=== PATIENT | female | born 1955 | race Caucasian/White ===

== ENCOUNTER 2017-11-18 11:38 | Inpatient (IN) | payer BC ==
[~2017-11-18] VITALS: Ht 165.1 cm; Wt 57.2 kg
[~2017-11-18 11:38] MED LIST: ASCO-182 PO; ASCO500C9 PO; ASPI-1471 PO; CYAN50TA3 PO; DEX4 PO; FERR325T24 PO; FOLI-68 PO; KET10 PO; LORA-1456 SL; MULT-27 PO; NIRA100C PO; ONDA4TAB PO; ONDA8TAB94 PO; OSE75 PO; OXYC-865 PO; POTA20TA10 PO; POTA20TA94 PO; PROC10TA4 PO; PYRI100T57 PO; PYRI25TA18 PO; SCOT TD; VITA150T2 PO; [UNRECOGNIZED DRUG - CODE] PO
--- NOTE | 2017-11-18 11:48 | ER Report ---
History and Physical Time Seen By MD: 11:47 HPI/ROS CHIEF COMPLAINT: Nausea, vomiting HISTORY OF PRESENT ILLNESS: 62-year-old female patient presents to emergency room with complaint of nausea and vomiting. Patient states that she had a dose of chemotherapy on . Patient states that she has not been able to eat and keep anything down since Sunday night. Patient states she has had several episodes of vomiting. 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 Patient denies having any fevers, chills. Patient states she's not had a bowel movement in 48 hours. She denies having any pain but states she does have nausea. Patient received 4 mg of Zofran in the cancer center and she states that seemed to have helped. REVIEW OF SYSTEMS: Respiratory: No cough, no dyspnea. Cardiovascular: No chest pain, no palpitations. Gastrointestinal: As noted above Musculoskeletal: No back pain. Allergies: Coded Allergies: niraparib (Verified Adverse Reaction, Intermediate, sores on mouth, ) Home Meds Discontinued Reported Medications Niraparib Tosylate (Zejula) 100 Mg Capsule, 100 MG PO DAILY 09/04/17 Mu-Vits-Min Th/Lycopene/Lutein (CENTRUM SILVER TABLET) 1 Each Tablet, 1 EACH PO QDAY 08/29/17 Folic Acid (FOLIC ACID) 1 Mg Tablet, 1 MG PO QDAY, TAB 06/15/17 Cyanocobalamin (Vitamin B-12) (VITAMIN B-12) 50 Mcg Tablet, 50 MCG PO DAILY 04/07/16 Mv,Ca,Min/Iron Fum/Fa/Vit K (MULTI FOR HER TABLET) 1 Each Tablet, 1 EACH PO 04/17/13 Discontinued Scripts Potassium Chloride (POTASSIUM CHLORIDE) 20 Meq Tab.er.prt, 1 TAB PO BIDBS, #30 TAB 0 Refills Prov:ROXANA MONTANEZ MD 08/22/17 Niraparib Tosylate (Zejula) 100 Mg Capsule, 300 MG PO DAILY, #90 CAP Prov:HUGO MORROW APPLICATION SYSTEMS ADMINISTRATOR-BC, ONC 08/20/17 Past Medical/Surgical History Patient has a past medical history of SVT, bowel obstruction, hiatal hernia, ovarian cancer. Patient has surgical history of ventral hernia repair, abdominal surgery for ovarian cancer, hysterectomy, retinal reattachment, ileostomy and reversal. Reviewed Nurses Notes: Yes Hx Smoking: No Smoking Status: Never Smoker Exposure to Second Hand Smoke?: No Hx Alcohol Use: No Constitutional Vital Sign - Last 24 Hours 11/18/17 11/18/17 11/18/17 11/18/17 11:40 11:49 12:00 12:30 Temp 98.7 Pulse 115 Resp 14 B/P (MAP) 129/65 129/65 (86) 127/65 (85) 116/65 (82) Pulse Ox 87 O2 Delivery Room Air 11/18/17 11/18/17 11/18/17 11/18/17 13:30 14:00 14:30 15:33 B/P (MAP) 125/64 (84) 126/64 (84) 146/56 (86) 122/65 (84) 11/18/17 11/18/17 11/18/17 11/18/17 15:35 15:50 16:05 16:20 Pulse 106 114 121 116 Pulse Ox 96 95 91 93 11/18/17 11/18/17 11/18/17 11/18/17 16:25 16:26 16:30 16:35 Pulse 111 111 109 Pulse Ox 91 86 O2 Flow Rate 2.0 11/18/17 11/18/17 11/18/17 11/18/17 16:40 16:43 16:45 16:50 Pulse 107 101 99 B/P (MAP) 86/50 (62) 89/44 (59) 89/46 (60) Pulse Ox 88 88 11/18/17 11/18/17 11/18/17 11/18/17 16:55 16:59 17:00 17:05 Pulse 108 102 101 B/P (MAP) 93/47 (62) Pulse Ox 87 86 89 11/18/17 11/18/17 11/18/17 11/18/17 17:10 17:15 17:20 17:25 Pulse 102 105 99 101 B/P (MAP) 102/59 (73) Pulse Ox 83 83 89 89 11/18/17 17:28 B/P (MAP) 103/54 (70) Intake and Output 11/18/17 11/18/17 11/19/17 15:00 23:00 07:00 Intake Total 1000 ml 100 ml Output Total 500 ml Balance 1000 ml -400 ml Physical Exam General Appearance: The patient is alert, has no immediate need for airway protection and no current signs of toxicity. ENT: Tympanic membranes are pearly-marin, auditory canals are patent, mucous membranes are moist. Respiratory: Chest is non tender, lungs are clear to auscultation. Cardiac: regular rate and rhythm Gastrointestinal: Abdomen is moderately distended and non tender, no masses, bowel sounds normal. Musculoskeletal: Neck: Neck is supple and non tender. Extremities have full range of motion and are non tender. Skin: No rashes or lesions. DIFFERENTIAL DIAGNOSIS: After history and physical exam differential diagnosis was considered for small bowel obstruction, gastroenteritis, reaction to chemotherapy. Medical Decision Making Data Points Result Diagram: 11/18/17 1216 11/18/17 1216 Laboratory Hematology Test 11/18/17 12:16 11/18/17 15:00 Red Blood Count 3.08 M/uL (4.17-5.56) Mean Corpuscular Volume 100.2 fL (80.0-96.0) Mean Corpuscular Hemoglobin 33.4 pg (26.0-33.0) Mean Corpuscular Hemoglobin Concent 33.3 g/dL (32.0-36.0) Red Cell Distribution Width 22.4 % (11.5-14.5) Mean Platelet Volume 8.9 fL (7.2-11.1) Neutrophils (%) (Auto) 88.5 % (39.4-72.5) Lymphocytes (%) (Auto) 9.9 % (17.6-49.6) Monocytes (%) (Auto) 1.3 % (4.1-12.4) Eosinophils (%) (Auto) 0.2 % (0.4-6.7) Basophils (%) (Auto) 0.1 % (0.3-1.4) Nucleated RBC Relative Count (auto) 0.0 /100WBC Neutrophils # (Auto) 3.5 K/uL (2.0-7.4) Lymphocytes # (Auto) 0.4 K/uL (1.3-3.6) Monocytes # (Auto) 0.1 K/uL (0.3-1.0) Eosinophils # (Auto) 0.0 K/uL (0.0-0.5) Basophils # (Auto) 0.0 K/uL (0.0-0.1) Nucleated RBC Absolute Count (auto) 0.00 K/uL Peripheral Blood Smear Yes Y/N Sodium Level 142 mmol/L (137-145) Potassium Level 3.7 mmol/L (3.5-5.0) Chloride Level 105 mmol/L (98-107) Carbon Dioxide Level 29 mmol/L (22-31) Blood Urea Nitrogen 17 mg/dl (7-18) Creatinine 0.50 mg/dl (0.52-1.04) Glomerular Filtration Rate Calc > 60.0 Random Glucose 118 mg/dl (75-110) Calcium Level 8.5 mg/dl (8.4-10.2) Total Bilirubin 1.0 mg/dl (0.2-1.3) Aspartate Amino Transf (AST/SGOT) 24 U/L (0-35) Alanine Aminotransferase (ALT/SGPT) 36 U/L (0-56) Alkaline Phosphatase 101 U/L (0-126) Total Protein 6.7 gm/dl (6.3-8.2) Albumin 3.4 g/dl (3.5-5.0) Amylase Level < 30 U/L (0-110) Lipase 25 U/L (23-300) Urine Color Yellow Urine Clarity Clear Urine pH 8.0 pH (4.8-9.5) Urine Specific [place] 1.005 Urine Protein Negative mg/dL (NEGATIVE) Urine Glucose (UA) Negative mg/dL (NEGATIVE) Urine Ketones Trace mg/dL (NEGATIVE) Urine Blood Negative (NEGATIVE) Urine Nitrite Negative (NEGATIVE) Urine Bilirubin Negative (NEGATIVE) Urine Urobilinogen Negative mg/dL (0.2-1.9) Urine Leukocyte Esterase Negative (NEGATIVE) Urine RBC 3 /HPF (0-2/HPF) Urine WBC 2 /HPF (0-5/HPF) Urine Squamous Epithelial Cells Many /LPF (</=FEW) Urine Bacteria Negative /HPF (NONE-FEW) Urine Mucus None /HPF (NONE-FEW) Chemistry Test 11/18/17 12:16 11/18/17 15:00 White Blood Count 4.0 k/uL (4.5-11.0) Red Blood Count 3.08 M/uL (4.17-5.56) Hemoglobin 10.3 g/dL (12.0-16.0) Hematocrit 30.8 % (34.0-47.0) Mean Corpuscular Volume 100.2 fL (80.0-96.0) Mean Corpuscular Hemoglobin 33.4 pg (26.0-33.0) Mean Corpuscular Hemoglobin Concent 33.3 g/dL (32.0-36.0) Red Cell Distribution Width 22.4 % (11.5-14.5) Platelet Count 145 K/uL (150-450) Mean Platelet Volume 8.9 fL (7.2-11.1) Neutrophils (%) (Auto) 88.5 % (39.4-72.5) Lymphocytes (%) (Auto) 9.9 % (17.6-49.6) Monocytes (%) (Auto) 1.3 % (4.1-12.4) Eosinophils (%) (Auto) 0.2 % (0.4-6.7) Basophils (%) (Auto) 0.1 % (0.3-1.4) Nucleated RBC Relative Count (auto) 0.0 /100WBC Neutrophils # (Auto) 3.5 K/uL (2.0-7.4) Lymphocytes # (Auto) 0.4 K/uL (1.3-3.6) Monocytes # (Auto) 0.1 K/uL (0.3-1.0) Eosinophils # (Auto) 0.0 K/uL (0.0-0.5) Basophils # (Auto) 0.0 K/uL (0.0-0.1) Nucleated RBC Absolute Count (auto) 0.00 K/uL Peripheral Blood Smear Yes Y/N Glomerular Filtration Rate Calc > 60.0 Calcium Level 8.5 mg/dl (8.4-10.2) Total Bilirubin 1.0 mg/dl (0.2-1.3) Aspartate Amino Transf (AST/SGOT) 24 U/L (0-35) Alanine Aminotransferase (ALT/SGPT) 36 U/L (0-56) Alkaline Phosphatase 101 U/L (0-126) Total Protein 6.7 gm/dl (6.3-8.2) Albumin 3.4 g/dl (3.5-5.0) Amylase Level < 30 U/L (0-110) Lipase 25 U/L (23-300) Urine Color Yellow Urine Clarity Clear Urine pH 8.0 pH (4.8-9.5) Urine Specific [place] 1.005 Urine Protein Negative mg/dL (NEGATIVE) Urine Glucose (UA) Negative mg/dL (NEGATIVE) Urine Ketones Trace mg/dL (NEGATIVE) Urine Blood Negative (NEGATIVE) Urine Nitrite Negative (NEGATIVE) Urine Bilirubin Negative (NEGATIVE) Urine Urobilinogen Negative mg/dL (0.2-1.9) Urine Leukocyte Esterase Negative (NEGATIVE) Urine RBC 3 /HPF (0-2/HPF) Urine WBC 2 /HPF (0-5/HPF) Urine Squamous Epithelial Cells Many /LPF (</=FEW) Urine Bacteria Negative /HPF (NONE-FEW) Urine Mucus None /HPF (NONE-FEW) Urinalysis Test 11/18/17 15:00 Urine Color Yellow Urine Clarity Clear Urine pH 8.0 pH (4.8-9.5) Urine Specific [place] 1.005 Urine Protein Negative mg/dL (NEGATIVE) Urine Glucose (UA) Negative mg/dL (NEGATIVE) Urine Ketones Trace mg/dL (NEGATIVE) Urine Blood Negative (NEGATIVE) Urine Nitrite Negative (NEGATIVE) Urine Bilirubin Negative (NEGATIVE) Urine Urobilinogen Negative mg/dL (0.2-1.9) Urine Leukocyte Esterase Negative (NEGATIVE) Urine RBC 3 /HPF (0-2/HPF) Urine WBC 2 /HPF (0-5/HPF) Urine Squamous Epithelial Cells Many /LPF (</=FEW) Urine Bacteria Negative /HPF (NONE-FEW) Urine Mucus None /HPF (NONE-FEW) EKG/Imaging Imaging INDICATION: fluid noted in lung on abdomen CT. DATE: 11/18/2017 2:06 PM. TECHNIQUE: CHEST W/O CONTRAST. Noncontrast axial CT imaging was performed to the chest with sagittal and coronal reformats. One of the following dose optimization techniques was utilized in the performance of this exam: Automated exposure control; adjustment of the mA and/or kV according to the patient's size ; or use of an iterative reconstruction technique. Specific details can be referenced in the facility's radiology CT exam operational policy. COMPARISON: CT abdomen of the same day FINDINGS: There is a large left pleural effusion with collapse of the left lower lobe. The left upper lobe is also largely atelectatic, but there is some aeration anteriorly. The right lung is clear with exception of scar and/or atelectasis, which is mild. Heart size is normal. A right chest port terminates in the SVC. No acute osseous abnormality. IMPRESSION: Large left pleural effusion with collapse of the left lower lobe and partial collapse of the left upper lobe. Report Dictated By: Tanesha Price MD at 11/18/2017 2:06 PM Report E-Signed By: Tanesha Price MD at 11/18/2017 2:15 PM COMPUTED TOMOGRAPHY OF THE Abdomen and Pelvis with CONTRAST INDICATION: Nausea and vomiting. TECHNIQUE: Contiguous axial 3.[address] images were obtained through the abdomen and pelvis after the administration of 75 cc Isovue-370. Coronal and sagittal reformatted images were submitted. COMPARISON: CT of July 09, 2016. FINDINGS: Lung bases: There is a large left pleural effusion which is incompletely imaged. The left lower lobe is collapsed. This has increased in size from comparison. Liver and hepatic vasculature: The abdomen is blurred by motion. The liver is grossly unremarkable. Gallbladder and bile ducts: High attenuation material fills the gallbladder as on the comparison and is of calcific density. Spleen: Normal with small splenule anteriorly. Pancreas: Mild to moderate pancreatic atrophy. Adrenals: Normal Kidneys, ureters and bladder: No hydronephrosis or collecting system obstruction. Retroperitoneum and aorta: Scattered aortic atherosclerosis. No aneurysm. GI tract, mesentery and peritoneum: The terminal ileum is decompressed. Several small bowel loops in the midabdomen are dilated, and there are multiple air- fluid levels. Dilation measures up to 4.9 cm diameter. There is a normal volume of gas and stool within the right colon. The left colon is decompressed. There is a surgical anastomosis involving the colon in the right hemiabdomen. The stomach is partially fluid-filled, and the jejunum is dilated. Uterus and adnexa: Surgically absent uterus. There is a small to moderate volume of low to intermediate attenuation fluid in the cul-de-sac. There is also a small volume of fluid in the paracolic gutters, more on the right than left. Bones and soft tissues: No acute osseous abnormality. Multilevel degenerative findings in the lumbar spine. IMPRESSION: 1. Small bowel obstruction with dilation of the jejunum and multiple small bowel loops in the midabdomen which measure just under 5 cm maximal diameter. The terminal ileum is decompressed. 2. Large left pleural effusion is incompletely imaged, and the left lower lobe is collapsed. Pleural fluid has progressed since the comparison. 3. Additional chronic findings as above. One of the following dose optimization techniques was utilized in the performance of this exam: Automated exposure control; adjustment of the mA and/ or kV according to the patient's size; or use of an iterative reconstruction technique. Specific details can be referenced in the facility's radiology CT exam operational policy. Report Dictated By: Tanesha Price MD at 11/18/2017 1:48 PM Report E-Signed By: Tanesha Price MD at 11/18/2017 2:06 PM ED Course/Re-evaluation ED Course Patient was admitted to exam room, history of discordant pain. Differential diagnoses were considered. On examination patient has distended abdomen, mild tenderness, hypoactive bowel sounds. A CBC, CMP, urinalysis were obtained. I did get a call all the patient was in CT getting exam. The radiology equipment servicer stated that there was significant pleural effusion and I did order a CT scan of the chest. The CT of the abdomen showed a small bowel obstruction, the CT scan of chest showed a large left pleural effusion with complex of the left lung. I discussed the case with Dr. Montanez, general surgeon. He is not supervisor telephone information but the patient requested that he be notified. He states that he was watching the CT scan and understood. I then spoke with Dr. Bruno who was on-call. He did come in, evaluate the patient. He did place an NG tube and performed a thoracentesis in the emergency room. He was able to pull out 2.3 L. Patient tolerated procedure well, her blood pressure did drop after removing the fluid. We laid her back in bed, gave her more fluid. Patient was then taken over to the [facility] floor. Decision to Disposition Date: Nov 18, 2017 Decision to Disposition Time: 14:33 Depart Departure Latest Vital Signs Vital Signs Date Time Temp Pulse Resp B/P (MAP) Pulse Ox O2 Delivery O2 Flow Rate FiO2 11/18/17 17:28 103/54 (70) 11/18/17 17:25 101 89 11/18/17 16:26 2.0 11/18/17 11:40 98.7 14 Room Air Impression: Primary Impression: Small bowel obstruction Additional Impression: Pleural effusion, left Condition: Improved Disposition: Admitted from ER New Scripts Unable to Obtain Active Prescriptions or Reported Meds Problem Qualifiers KENZIE LEON Nov 18, 2017 11:48
[2017-11-18] MEDS ORDERED: NS(*) 0.9% 1000 ML BAG 1,000 ML IV ONE ×3 (12:02→16:45)
[2017-11-18] MEDS ORDERED: IOPAMIDOL 76% 75 ML INFUS BTL 75 ML ONE (12:16)
[2017-11-18] MEDS ORDERED: NS 0.9% 50 ML VIAL 50 ML ONE (12:16)
[2017-11-18] MEDS ORDERED: PROMETHAZINE 25 MG/ML 1 ML AMP IVP ONE (12:25)
[2017-11-18 12:38] LABS: PLATELET COUNT, AUTOMATED 145 K/uL (150-450)
--- NOTE | 2017-11-18 14:11 | RADIOLOGY IMAGING REPORT ---
[place] [facility] [place] : 1955 MR: [id number] V: [id number] EXAM DATE: ORDERING PHYSICIAN: KENZIE LEON TECHNOLOGIST: Location: [facility] [place] Patient: Carolina Hill : 1955 Visit/Account:[id number] Date of Sevice: 11/18/2017 COMPUTED TOMOGRAPHY OF THE Abdomen and Pelvis with CONTRAST INDICATION: Nausea and vomiting. TECHNIQUE: Contiguous axial 3.[address] images were obtained through the abdomen and pelvis after the administration of 75 cc Isovue-370. Coronal and sagittal reformatted images were submitted. COMPARISON: CT of July 09, 2016. FINDINGS: Lung bases: There is a large left pleural effusion which is incompletely imaged. The left lower lobe is collapsed. This has increased in size from comparison. Liver and hepatic vasculature: The abdomen is blurred by motion. The liver is grossly unremarkable. Gallbladder and bile ducts: High attenuation material fills the gallbladder as on the comparison and is of calcific density. Spleen: Normal with small splenule anteriorly. Pancreas: Mild to moderate pancreatic atrophy. Adrenals: Normal Kidneys, ureters and bladder: No hydronephrosis or collecting system obstruction. Retroperitoneum and aorta: Scattered aortic atherosclerosis. No aneurysm. GI tract, mesentery and peritoneum: The terminal ileum is decompressed. Several small bowel loops in the midabdomen are dilated, and there are multiple air-fluid levels. Dilation measures up to 4.9 cm d iameter. There is a normal volume of gas and stool within the right colon. The left colon is decompre ssed. There is a surgical anastomosis involving the colon in the right hemiabdomen. The stomach is pa rtially fluid-filled, and the jejunum is dilated. Uterus and adnexa: Surgically absent uterus. There is a small to moderate volume of low to intermedia te attenuation fluid in the cul-de-sac. There is also a small volume of fluid in the paracolic gutter s, more on the right than left. Bones and soft tissues: No acute osseous abnormality. Multilevel degenerative findings in the lumbar spine. IMPRESSION: 1. Small bowel obstruction with dilation of the jejunum and multiple small bowel loops in the midabdo men which measure just under 5 cm maximal diameter. The terminal ileum is decompressed. 2. Large left pleural effusion is incompletely imaged, and the left lower lobe is collapsed. Pleural fluid has progressed since the comparison. 3. Additional chronic findings as above. One of the following dose optimization techniques was utilized in the performance of this exam: Autom ated exposure control; adjustment of the mA and/or kV according to the patient's size; or use of an i terative reconstruction technique. Specific details can be referenced in the facility's radiology C T exam operational policy. Report Dictated By: Tanesha Price MD at 11/18/2017 1:48 PM Report E-Signed By: Tanesha Price MD at 11/18/2017 2:06 PM WSN:[id number]
--- NOTE | 2017-11-18 14:19 | RADIOLOGY IMAGING REPORT ---
FACILITY: [facility] - [place] PATIENT NAME: Carolina Hill : 1955 MR: [id number] V: [id number] EXAM DATE: ORDERING PHYSICIAN: KENZIE LEON TECHNOLOGIST: Location: [facility] - [place] Patient: Carolina Hill : 1955 Visit/Account:[id number] Date of Sevice: 11/18/2017 INDICATION: fluid noted in lung on abdomen CT. DATE: 11/18/2017 2:06 PM. TECHNIQUE: CHEST W/O CONTRAST. Noncontrast axial CT imaging was performed to the chest with sagittal and coronal reformats. One of the following dose optimization techniques was utilized in the performa nce of this exam: Automated exposure control; adjustment of the mA and/or kV according to the patient 's size; or use of an iterative reconstruction technique. Specific details can be referenced in the facility's radiology CT exam operational policy. COMPARISON: CT abdomen of the same day FINDINGS: There is a large left pleural effusion with collapse of the left lower lobe. The left upper lobe is also largely atelectatic, but there is some aeration anteriorly. The right lung is clear wit h exception of scar and/or atelectasis, which is mild. Heart size is normal. A right chest port termi nates in the SVC. No acute osseous abnormality. IMPRESSION: Large left pleural effusion with collapse of the left lower lobe and partial collapse of the left upp er lobe. Report Dictated By: Tanesha Price MD at 11/18/2017 2:06 PM Report E-Signed By: Tanesha Price MD at 11/18/2017 2:15 PM WSN:[id number]
[2017-11-18] MEDS ORDERED: ONDANSETRON 4 MG/2 ML VIAL IVP ONE (14:50)
[2017-11-18] MEDS ORDERED: ACETAMINOPHEN(*)1000 MG/100 ML 100 ML IVPB ONE (14:50)
[2017-11-18] MEDS ORDERED: LORazepam 2 MG/ML VIAL IVP ONE (15:10)
--- NOTE | 2017-11-18 16:49 | Procedure Note ---
Thoracentesis Procedure Note Reason for Thoracentesis: Pleural Effusion Consent Signed: Yes Thoracentesis Location: Left Lung U/S Guided Thoracentesis: No Blood Loss: None Complications: None Anesthesia Used: 1% Lidocaine CC's of Anesthesia: 10 Amount of Fluid: 2350 Fluid Characteristics: Serous Post Procedure Xray Ordered: Yes Lab Analysis Ordered: Yes RONNIE CLARK MD Nov 18, 2017 16:49
--- NOTE | 2017-11-18 17:02 | Gen Surgery History & Physical ---
History of Present Illness Chief Complaint Nausea and Vomiting, abdominal pain History of Present Illness Ms. Hill is a 62yo female with ovarian carcinoma currently undergoing chemotherapy. She had a transverse colonic bowel obstruction earlier this year and had a colon resection in July. She has since restarted her chemotherapy regimen and just completed her 3rd of 5 cycles. She had nausea and vomiting starting last night that led to her visiting the ED today. She has also had some respiratory wheezing and cough that has persisted over the past 1-2 weeks. Her evaluation in the ED included a CT Chest/Abd/Pelvis which demonstrated a large left pleural effusion in addition to a distal small bowel obstruction. I was contacted to assist with the evaluation and treatment. I spoke with Dr Montanez regarding her PMH. History Home Meds Active Scripts Potassium Chloride (POTASSIUM CHLORIDE) 20 Meq Tab.er.prt, 1 TAB PO BIDBS, #30 TAB 0 Refills Prov:ROXANA MONTANEZ MD 08/22/17 Reported Medications Mu-Vits-Min Th/Lycopene/Lutein (CENTRUM SILVER TABLET) 1 Each Tablet, 1 EACH PO QDAY 08/29/17 Folic Acid (FOLIC ACID) 1 Mg Tablet, 1 MG PO QDAY, TAB 06/15/17 Cyanocobalamin (Vitamin B-12) (VITAMIN B-12) 50 Mcg Tablet, 50 MCG PO DAILY 04/07/16 Mv,Ca,Min/Iron Fum/Fa/Vit K (MULTI FOR HER TABLET) 1 Each Tablet, 1 EACH PO 04/17/13 Discontinued Reported Medications Niraparib Tosylate (Zejula) 100 Mg Capsule, 100 MG PO DAILY 09/04/17 Discontinued Scripts Niraparib Tosylate (Zejula) 100 Mg Capsule, 300 MG PO DAILY, #90 CAP Prov:HUGO MORROW LUMBER MARKER-BC, ONC 08/20/17 Allergies: Coded Allergies: niraparib (Verified Adverse Reaction, Intermediate, sores on mouth, ) Patient History: FH: diabetes mellitus MOTHER, , Age:63 Review of Systems All Systems Reviewed/Normal: Yes, Except as Noted Constitutional: No Fever Neurological: No Syncope Respiratory: Shortness of Breath, Cough, Wheezing Gastrointestinal: Nausea, Vomiting, No Diarrhea Exam General Appearance: Alert, Awake, Other (discomfort predominantly due to abdominal pain, N/V) Neuro: No Gross deficits Eyes: PERRLA ENT: Normal Neck: No Masses Cardiovascular: Normal Rhythm & Peripheral Pulses Respiratory: Other (no breath sounds on the left) GI: Other (distended, non-tender) Extremities: Soft and Non Tender Psych: Alert & Oriented X3, Appropriate Mood & Affect Medical Decision Making Data Points Result Diagram: 11/18/17 1216 11/18/17 1216 Assessment and Plan Problems: (1) Ovarian cancer Status: Chronic (2) Small bowel obstruction Status: Acute Assessment & Plan: 11/18/17: The obstruction appears to be in the distal small bowel. I placed an 18F NGT in the ED after providing 1mg of ativan sedation. There was some difficulty in getting to the posterior pharynx but the procedure overall went well. A x-ray will be obtained to help confirm placement though there was good return of gastric fluid. The tube was positioned at 50cm at the nare. I will reevaluate her in the am for decision of a SBFT. (3) Pleural effusion, left Status: Acute Assessment & Plan: She has a pleural effusion on the left that completely fills the chest. This was apparently seen previously per the patient but not at this volume. She has not had it drained in the past. I recommend drainage due to the size of the collection via thoracentesis. She may very well need another thoracentesis or pleural catheter at some point but this will help get her to a better position after dealing with the acute issues. Time Spent: > 30 min Venous Thromboembolism VTE Risk Physician Assess for VTE Risk: Yes Patient's VTE Risk: High VTE Diagnostic Test 2 Days Prior to Admit: No Antithrombotics Is Pt On Any Antithrombotics?: No RONNIE CLARK MD Nov 18, 2017 17:02
[2017-11-18] MEDS ORDERED: NALOXONE HCL 0.4 MG/ML VIAL IVP PRN (17:05)
[2017-11-18] MEDS ORDERED: ONDANSETRON 4 MG/2 ML VIAL IVP PRN (17:05)
[2017-11-18] MEDS ORDERED: MORPHINE 2 MG/ML SYR IVP PRN (17:05)
--- NOTE | 2017-11-18 17:24 | RADIOLOGY IMAGING REPORT ---
FACILITY: [facility] - [place] PATIENT NAME: Carolina Hill : 1955 MR: [id number] V: [id number] EXAM DATE: ORDERING PHYSICIAN: KENZIE LEON TECHNOLOGIST: Location: [facility] Patient: Carolina Hill : 1955 Visit/Account:[id number] Date of Sevice: 11/18/2017 EXAMINATION: Portable AP Chest HISTORY: NG tube placement. COMPARISON: CT chest performed earlier today.. FINDINGS: Prior large left pleural effusion is no longer present, presumably due to interval thoracentesis. Mil d streaky and linear opacities in the lower left lung may represent residual atelectasis. No pneumoth orax. The right lung remains clear. No right-sided pleural effusion. Normal cardiomediastinal silhouette, with normal heart size and pulmonary vascularity. New enteric tube present. Tip overlies the mid stomach in the left upper abdomen. Right central venou s port, with tip overlying the mid SVC. No acute osseous findings. IMPRESSION: 1. NG tube tip in the stomach. 2. Prior large left pleural effusion is no longer present, presumably due to interval thoracentesis. 3. Mild left basilar opacity likely represents atelectasis. No pneumothorax. Report Dictated By: Aly Rice MD at 11/18/2017 5:17 PM Report E-Signed By: Aly Rice MD at 11/18/2017 5:20 PM WSN:[id number]
[2017-11-18 17:54] VITALS: BP 100/40
[2017-11-18 19:55] VITALS: BP 110/60
[2017-11-18] MEDS: KCL/D1/2NS 20 MEQ 1000 ML 1,000 ML IV PRN (20:51)
[2017-11-18] MEDS: FAMOTIDINE(*) 20MG/50ML PREMIX 50 ML IVPB SCH (20:51)
[2017-11-19 00:55] VITALS: BP 109/58
[2017-11-19 03:13] VITALS: BP 112/62
[2017-11-19] MEDS: KCL/D1/2NS 20 MEQ 1000 ML 1,000 ML IV PRN (05:32)
--- NOTE | 2017-11-19 05:38 | RADIOLOGY IMAGING REPORT ---
[place] [facility] [place] Hill : 1955 MR: [id number] V: [id number] EXAM DATE: ORDERING PHYSICIAN: RONNIE CLARK TECHNOLOGIST: Location: [facility] [place] Patient: Carolina Hill : 1955 Visit/Account:[id number] Date of Sevice: 11/19/2017 CHEST PA AND LAT History: Follow-up thoracentesis Comparison 11/18/2012. FINDINGS: New small left apical pneumothorax. Developing infiltrate in the left lower lung. NG tube terminates in the stomach. Heart size within normal limits. IMPRESSION: 1. Small left apical pneumothorax. 2. Developing infiltrate in the left lower lung. Results were called to RONNIE CLARK at 0530 hours. . Report Dictated By: Georges Farrar MD at 11/19/2017 5:30 AM Report E-Signed By: Georges Farrar MD at 11/19/2017 5:35 AM WSN:[id number]
[2017-11-19 07:15] LABS: PLATELET COUNT, AUTOMATED 103 K/uL (150-450)
[2017-11-19 07:24] VITALS: BP 104/48
[2017-11-19] MEDS: ENOXAPARIN 40 MG/0.4ML SYR SC SCH (08:55)
[2017-11-19] MEDS: FAMOTIDINE(*) 20MG/50ML PREMIX 50 ML IVPB SCH ×2 (08:55→20:28)
[2017-11-19] MEDS ORDERED: BENZOCAINE/MENTHOL 1 EACH LOZG PO PRN (08:55)
--- NOTE | 2017-11-19 10:47 | General Surgery Progress Note ---
Subjective Progress Notes Subjective She is feeling much better. Passing flatus. No nausea. No pain. Physical Exam Vital Signs Date Time Temp Pulse Resp B/P (MAP) Pulse Ox O2 Delivery O2 Flow Rate FiO2 11/19/17 07:24 98.4 14 104/48 (66) 95 Nasal Cannula 1.0 11/19/17 03:13 92 General Appearance: Alert, Awake, No Acute Distress Respiratory: No Respiratory Distress GI: Soft and Non-Tender Psych: Alert & Oriented X3, Appropriate Mood & Affect Result Diagram: 11/19/17 0644 11/19/17 0644 Assessment and Plan Problems: (1) Ovarian cancer Status: Chronic (2) Small bowel obstruction Status: Acute Assessment & Plan: 11/18/17: The obstruction appears to be in the distal small bowel. I placed an 18F NGT in the ED after providing 1mg of ativan sedation. There was some difficulty in getting to the posterior pharynx but the procedure overall went well. A x-ray will be obtained to help confirm placement though there was good return of gastric fluid. The tube was positioned at 50cm at the nare. I will reevaluate her in the am for decision of a SBFT. 11/19/17: She is passing gas and her KUB shows clear progress with less distention and air in the colon. However, she does still have dilated loops of small bowel. I will thus keep her NGT on suction at this point until she has more definitive resolution. (3) Pleural effusion, left Status: Acute Assessment & Plan: She has a pleural effusion on the left that completely fills the chest. This was apparently seen previously per the patient but not at this volume. She has not had it drained in the past. I recommend drainage due to the size of the collection via thoracentesis. She may very well need another thoracentesis or pleural catheter at some point but this will help get her to a better position after dealing with the acute issues. 11/19/17: The effusion remains resolved. There is a small pneumothorax which is likely due to the slow withdrawal of the catheter. I will recheck her film at 1130 for a 6hr follow-up. There is also note of an infiltrate but I lean towards this representing atelectasis over a pneumonia at this time. Her WBC is 1.1 which is likely her post-chemo baseline. Her value yesterday was probably due to demargination. I have placed her on protective precautions and recommended IS. Time Spent: < 30 min Exam Sepsis Risk: No Definite Risk RONNIE CLARK MD Nov 19, 2017 10:47
--- NOTE | 2017-11-19 11:39 | RADIOLOGY IMAGING REPORT ---
FACILITY: [facility] - [place] PATIENT NAME: Carolina Hill : 1955 MR: [id number] V: [id number] EXAM DATE: ORDERING PHYSICIAN: RONNIE CLARK TECHNOLOGIST: Location: [facility] - [place] Patient: Carolina Hill : 1955 Visit/Account:[id number] Date of Sevice: 11/19/2017 INDICATION: Small bowel obstruction EXAM DATE: 11/19/2017 8:37 AM COMPARISON: CT abdomen and pelvis yesterday. FINDINGS: AP supine radiograph of the abdomen. Esophagogastric tube terminates in the body of the stomach. Redemonstration multiple loops of dilated small bowel. No pneumatosis, pneumoperitoneum or portal ve nous gas. No evidence of large volume ascites or mass. Surgical clips over the right lower quadrant. Large lamellated gallstone. No acute osseous abnormality. IMPRESSION: Persistently dilated loops of small bowel consistent with obstruction as seen yesterday. Report Dictated By: Darío San MD at 11/19/2017 11:33 AM Report E-Signed By: Daíro San MD at 11/19/2017 11:35 AM WSN:[id number]
[2017-11-19 11:40] VITALS: BP 101/42
--- NOTE | 2017-11-19 11:46 | General Surgery Progress Note ---
Physical Exam Vital Signs Date Time Temp Pulse Resp B/P (MAP) Pulse Ox O2 Delivery O2 Flow Rate FiO2 11/19/17 11:40 98.7 85 18 101/42 (61) 98 Nasal Cannula 1.0 Result Diagram: 11/19/17 0644 11/19/17 0644 Assessment and Plan Problems: (1) Ovarian cancer Status: Chronic (2) Small bowel obstruction Status: Acute Assessment & Plan: 11/18/17: The obstruction appears to be in the distal small bowel. I placed an 18F NGT in the ED after providing 1mg of ativan sedation. There was some difficulty in getting to the posterior pharynx but the procedure overall went well. A x-ray will be obtained to help confirm placement though there was good return of gastric fluid. The tube was positioned at 50cm at the nare. I will reevaluate her in the am for decision of a SBFT. 11/19/17: She is passing gas and her KUB shows clear progress with less distention and air in the colon. However, she does still have dilated loops of small bowel. I will thus keep her NGT on suction at this point until she has more definitive resolution. (3) Pleural effusion, left Status: Acute Assessment & Plan: She has a pleural effusion on the left that completely fills the chest. This was apparently seen previously per the patient but not at this volume. She has not had it drained in the past. I recommend drainage due to the size of the collection via thoracentesis. She may very well need another thoracentesis or pleural catheter at some point but this will help get her to a better position after dealing with the acute issues. 11/19/17: The effusion remains resolved. There is a small pneumothorax which is likely due to the slow withdrawal of the catheter. I will recheck her film at 1130 for a 6hr follow-up. There is also note of an infiltrate but I lean towards this representing atelectasis over a pneumonia at this time. Her WBC is 1.1 which is likely her post-chemo baseline. Her value yesterday was probably due to demargination. I have placed her on protective precautions and recommended IS. 11/19/17: 1145am - Repeat CXR shows no progression of pneumothorax. Effusion is reaccumulating. Will decrease IVF to 100ml/hr with good UOP. Time Spent: < 30 min Exam Sepsis Risk: No Definite Risk RONNIE CLARK MD Nov 19, 2017 11:46
--- NOTE | 2017-11-19 11:54 | RADIOLOGY IMAGING REPORT ---
FACILITY: [facility] PATIENT NAME: Carolina Hill : 1955 MR: [id number] V: [id number] EXAM DATE: ORDERING PHYSICIAN: RONNIE CLARK TECHNOLOGIST: Location: [facility] Patient: Carolina Hill : 1955 Visit/Account:[id number] Date of Sevice: 11/19/2017 SINGLE AP RADIOGRAPH OF THE CHEST 11/19/2017 11:30 AM. INDICATION: follow-up pneumothorax from early am film COMPARISON: Same-day radiograph at 5:13 AM. FINDINGS: Endotracheal tube and right subclavian central venous catheter with port remain in place. Persistent but decreased small left apical pneumothorax. Left mid and lower lung opacification or not signific antly changed. Suspected small left pleural effusion. IMPRESSION: Persistent but decreased small left apical pneumothorax, otherwise unchanged. Report Dictated By: Darío San MD at 11/19/2017 11:47 AM Report E-Signed By: Darío San MD at 11/19/2017 11:50 AM WSN:[id number]
[2017-11-19 14:54] VITALS: Ht 165.1 cm; Wt 57.2 kg
--- NOTE | 2017-11-19 15:05 | Medical Nutrition Therapy ---
Nutrition Anthropometrics Height (Inches): 65.00 Height (Calculated Centimeters: 165.360076 Weight (Pounds): 126 Weight (Calculated Kilograms): 57.379 BMI Calculated: 20.97 Francisco Nutrition Score: Probably Inadequate Francisco Nutrition Risk Score: 19 Dietary Referral Nutrition Risk Factors: Nutrition Risk Comment: Physical Findings Physical Appearance: WNR Skin Appearance Skin Appearance: Edema Edema Location Modifier: Both Edema Location: Lower Extremity Type of Edema: Degree of Edema: 1+ Gastrointestinal Symptoms GI Symtoms: Nausea Tube Present: NG Bowel Sounds: Recent Bowel Pattern: No Bowel Movement Stool Characteristics: Nutrition/Food History No Significant Nutr. HX Nutritional Diagnosis Nutritional Risk Acuity 1: GI Obstruction Nutritional Risk Acuity 3: Nausea, Cancer Past Medical History: 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, Colostomy, transverse colonic bowel obstruction, colon resection Nutritional Acuity: 1-High Nutrition Diagnosis: Altered GI Function Nutrition Etiology: Physiological Causes Nutrition Problem/Etiology/Sym: Altered Gastrointestinal (GI) Function related to alteration in gastrointestinal tract function secondary to SBO AEB positive SBO diagnosis with CT of the abdomen and abdominal pain, nausea prior to admit. Energy Requirement: 1800 ([place] Jeor: Actual BW X 1.6) Protein Requirement: 60 (Actual BW Kg X 1.0) Fluid Requirement: 1800 Diet Type: NPO (Nothing by Mouth) Nutrition Intervention: Incr diet as tolerated Nutrition Monitoring & Eval Nutrition Goals: Eat 75-100% Meal RD Patient Assessment Time: [address] Assessment Type: RD Assessment Patient Nutrition Acuity: 1-High Follow Up Date: Nov 21, 2017 Nutritional Comment: Pt admitted for SBO. Alb 3.4, Low Ca+, Creat. WNR wt with BMI of 21.0. Pt currently receiving chemo for ovarian carcinoma. Currently NPO r/t SBO. Monitor diet progression, labs, etc. TOMAS MONTANA Nov 19, 2017 15:05
[2017-11-19 15:55] VITALS: BP 108/54
[2017-11-19 19:32] VITALS: BP 107/51
[2017-11-20 02:04] VITALS: BP 95/47
[2017-11-20] MEDS: KCL/D1/2NS 20 MEQ 1000 ML 1,000 ML IV PRN ×2 (02:10→14:11)
[2017-11-20 06:27] LABS: PLATELET COUNT, AUTOMATED 86 K/uL (150-450)
--- NOTE | 2017-11-20 07:58 | RADIOLOGY IMAGING REPORT ---
FACILITY: [facility] PATIENT NAME: Carolina Hill : 1955 MR: [id number] V: [id number] EXAM DATE: ORDERING PHYSICIAN: RONNIE CLARK TECHNOLOGIST: Location: [facility] Patient: Carolina Hill : 1955 Visit/Account:[id number] Date of Sevice: 11/20/2017 CHEST PA AND LAT Additional pertinent History: Follow-up of small bowel obstruction and pneumothorax/effusion COMPARISON STUDIES: 11/19/2017 FINDINGS: Support lines and catheters: NG tube within the stomach. Right chest [id number]-[id number] catheter. Lungs and Pleura: Persistent small apical pneumothorax in the left upper lung. Persistent slightly i mproved opacity obscuring the left hemidiaphragm and left heart border extending to the left infrahil ar region. Heart and vasculature: Negative. Amita and Mediastinum: Negative. Bones and Chest wall: Negative. Upper Abdomen: Negative. IMPRESSION: 1. No interval change in the appearance the chest when compared to the previous study. Persistent sma ll left apical pneumothorax. Persistent volume loss/consolidative change in the left lower lung with slight minimal improvement in aeration when compared to the previous study Report Dictated By: Shaquille Acosta MD at 11/20/2017 7:52 AM Report E-Signed By: Shaquille Acosta MD at 11/20/2017 7:55 AM WSN:[id number]
--- NOTE | 2017-11-20 08:00 | RADIOLOGY IMAGING REPORT ---
FACILITY: [facility] [place] PATIENT NAME: Carolina Hill : 1955 MR: [id number] V: [id number] EXAM DATE: ORDERING PHYSICIAN: RONNIE CLARK TECHNOLOGIST: Location: [facility] Patient: Carolina Hill : 1955 Visit/Account:[id number] Date of Sevice: 11/20/2017 KUB SINGLE VIEW ABDOMEN HISTORY: follow-up small bowel obstruction KUB Comparison made to a previous KUB from 11/19/2017 NG tube within the stomach. Persistent dilated loops of small bowel in the central and left upper abd omen. No significant overall interval change in the appearance when compared to previous study. Large calcified gallstone. Surgical clips overlying the right upper sacrum. IMPRESSION: 1. Persistent unchanged appearance to the dilated loops of small bowel compatible with small bowel ob struction in the central and left upper abdomen. Report Dictated By: Shaquille Acosta MD at 11/20/2017 7:55 AM Report E-Signed By: Shaquille Acosta MD at 11/20/2017 7:56 AM WSN:[id number]
--- NOTE | 2017-11-20 08:25 | General Surgery Progress Note ---
Subjective Progress Notes Subjective Feeling better today. Passing "lots of" flatus. No abdominal pain. No N/V. Appetite is coming back. NG tube came out overnight. Physical Exam Vital Signs Date Time Temp Pulse Resp B/P (MAP) Pulse Ox O2 Delivery O2 Flow Rate FiO2 11/20/17 02:04 97.6 87 16 95/47 (63) 98 Nasal Cannula 0.5 General Appearance: Alert, Awake, No Acute Distress, Afebrile GI: Soft and Non-Tender Extremities: Warm, Perfused Result Diagram: 11/20/17 0536 11/20/17 0536 Assessment and Plan Problems: (1) Small bowel obstruction Status: Acute Assessment & Plan: 11/18/17: The obstruction appears to be in the distal small bowel. I placed an 18F NGT in the ED after providing 1mg of ativan sedation. There was some difficulty in getting to the posterior pharynx but the procedure overall went well. A x-ray will be obtained to help confirm placement though there was good return of gastric fluid. The tube was positioned at 50cm at the nare. I will reevaluate her in the am for decision of a SBFT. 11/19/17: She is passing gas and her KUB shows clear progress with less distention and air in the colon. However, she does still have dilated loops of small bowel. I will thus keep her NGT on suction at this point until she has more definitive resolution. 11/20/17: Improving. Passing increasing amounts of flatus. KUB improved slightly but still with dilated loops of small bowel. Will try clear diet today but will limit intake to <30mL/4hours. Will recheck x-ray tomorrow morning. If improvement is slow or stalled, will get gastrograffin SBFT tomorrow. (2) Pleural effusion, left Status: Acute Assessment & Plan: She has a pleural effusion on the left that completely fills the chest. This was apparently seen previously per the patient but not at this volume. She has not had it drained in the past. I recommend drainage due to the size of the collection via thoracentesis. She may very well need another thoracentesis or pleural catheter at some point but this will help get her to a better position after dealing with the acute issues. 11/19/17: The effusion remains resolved. There is a small pneumothorax which is likely due to the slow withdrawal of the catheter. I will recheck her film at 1130 for a 6hr follow-up. There is also note of an infiltrate but I lean towards this representing atelectasis over a pneumonia at this time. Her WBC is 1.1 which is likely her post-chemo baseline. Her value yesterday was probably due to demargination. I have placed her on protective precautions and recommended IS. 11/19/17: 1145am - Repeat CXR shows no progression of pneumothorax. Effusion is reaccumulating. Will decrease IVF to 100ml/hr with good UOP. 11/20/17: Slow reaccumulation of left effusion, likely due to ovarian cancer with mets to left pleura, cytology is pending. Will follow this. If repeated thoracenteses are required then may need to discuss indwelling pleural catheter. (3) Ovarian cancer Status: Chronic Condition Stable. Time Spent: < 30 min Exam Sepsis Risk: No Definite Risk Problem Qualifiers (1) Ovarian cancer: Laterality: unspecified laterality Qualified Codes: C56.9 - Malignant neoplasm of unspecified ovary ROXANA MONTANEZ MD Nov 20, 2017 08:25
[2017-11-20 08:27] VITALS: BP 92/44
[2017-11-20] MEDS: FAMOTIDINE(*) 20MG/50ML PREMIX 50 ML IVPB SCH ×2 (08:46→20:18)
[2017-11-20] MEDS: ENOXAPARIN 40 MG/0.4ML SYR SC SCH (08:46)
[2017-11-20] MEDS ORDERED: NIRA100C PO (09:14)
[2017-11-20] MEDS ORDERED: FOLI-68 PO (09:14)
[2017-11-20] MEDS ORDERED: MULT-27 PO (09:14)
[2017-11-20] MEDS ORDERED: [UNRECOGNIZED DRUG - CODE] PO (09:14)
[2017-11-20] MEDS ORDERED: CYAN500L6 PO (09:14)
[2017-11-20] MEDS ORDERED: POTA20TA94 PO (09:14)
[2017-11-20 11:16] VITALS: BP 93/52
[2017-11-20 15:29] VITALS: BP 97/51
--- NOTE | 2017-11-20 16:17 | Medical Nutrition Therapy ---
Nutrition Anthropometrics Height (Inches): 65.00 Height (Calculated Centimeters: 165.477855 Weight (Pounds): 126 Weight (Calculated Kilograms): 57.379 BMI Calculated: 20.97 Francisco Nutrition Score: Very Poor Francisco Nutrition Risk Score: 18 Dietary Referral Nutrition Risk Factors: Nutrition Risk Comment: Physical Findings Physical Appearance: WNR Skin Appearance Skin Appearance: Edema Edema Location Modifier: Both Edema Location: Lower Extremity Type of Edema: Degree of Edema: 1+ Gastrointestinal Symptoms GI Symtoms: Nausea Tube Present: NG Bowel Sounds: Recent Bowel Pattern: No Bowel Movement Stool Characteristics: Nutritional Diagnosis Nutritional Risk Acuity 1: GI Obstruction Nutritional Risk Acuity 3: Nausea, Cancer Past Medical History: 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, Colostomy, transverse colonic bowel obstruction, colon resection Nutritional Acuity: 1-High Nutrition Diagnosis: Altered GI Function Nutrition Etiology: Physiological Causes Nutrition Problem/Etiology/Sym: Altered Gastrointestinal (GI) Function related to alteration in gastrointestinal tract function secondary to SBO AEB positive SBO diagnosis with CT of the abdomen and abdominal pain, nausea prior to admit. Energy Requirement: 1800 ([place] Jeor: Actual BW X 1.6) Protein Requirement: 60 (Actual BW Kg X 1.0) Fluid Requirement: 1800 Diet Type: Clear Liquids Nutrition Intervention: Incr diet as tolerated Nutrition Monitoring & Eval Nutrition Goals: Eat 75-100% Meal RD Patient Assessment Time: [address] Assessment Type: RD Re-Assessment Patient Nutrition Acuity: 1-High Follow Up Date: Nov 22, 2017 Nutritional Comment: Pt admitted for SBO. Alb 3.4, Low Ca+, Creat. WNR wt with BMI of 21.0. Pt currently receiving chemo for ovarian carcinoma. Currently NPO r/t SBO. Monitor diet progression, labs, etc. 1/2 Per MD note, pt is passing flatus and appetite is coming back. Upgraded to clear liquids but limited to <30 ml every 4 hrs. H/H low and alb 3.4. Will continue to monitor and encourage intake as diet progresses. PROSPER HERNANDEZ Nov 20, 2017 12:50
[2017-11-20 18:45] VITALS: BP 100/57
[2017-11-20 22:34] VITALS: BP 104/46
[2017-11-21] MEDS: KCL/D1/2NS 20 MEQ 1000 ML 1,000 ML IV PRN ×2 (01:47→13:38)
[2017-11-21 04:24] VITALS: BP 112/57
[2017-11-21 06:06] LABS: PLATELET COUNT, AUTOMATED 73 K/uL (150-450)
--- NOTE | 2017-11-21 07:29 | General Surgery Progress Note ---
Subjective Progress Notes Subjective Feeling good this morning. Passing flatus and she's had a couple of BMs. No N/ V, no bloating. Physical Exam Vital Signs Date Time Temp Pulse Resp B/P (MAP) Pulse Ox O2 Delivery O2 Flow Rate FiO2 11/21/17 04:24 98.0 86 16 112/57 (75) 90 Room Air 11/20/17 02:04 0.5 General Appearance: Alert, Awake, No Acute Distress, Afebrile GI: Soft and Non-Tender Extremities: Warm, Perfused Result Diagram: 11/21/17 0538 11/21/17 0538 Assessment and Plan Problems: (1) Small bowel obstruction Status: Acute Assessment & Plan: 11/18/17: The obstruction appears to be in the distal small bowel. I placed an 18F NGT in the ED after providing 1mg of ativan sedation. There was some difficulty in getting to the posterior pharynx but the procedure overall went well. A x-ray will be obtained to help confirm placement though there was good return of gastric fluid. The tube was positioned at 50cm at the nare. I will reevaluate her in the am for decision of a SBFT. 11/19/17: She is passing gas and her KUB shows clear progress with less distention and air in the colon. However, she does still have dilated loops of small bowel. I will thus keep her NGT on suction at this point until she has more definitive resolution. 11/20/17: Improving. Passing increasing amounts of flatus. KUB improved slightly but still with dilated loops of small bowel. Will try clear diet today but will limit intake to <30mL/4hours. Will recheck x-ray tomorrow morning. If improvement is slow or stalled, will get gastrograffin SBFT tomorrow. 11/21/17: Continued improvement, now passing flatus and BMs. KUB still with dilated loops of small bowel but patient clinically is resolving. Will try clear diet without volume restrictions today. (2) Pleural effusion, left Status: Acute Assessment & Plan: She has a pleural effusion on the left that completely fills the chest. This was apparently seen previously per the patient but not at this volume. She has not had it drained in the past. I recommend drainage due to the size of the collection via thoracentesis. She may very well need another thoracentesis or pleural catheter at some point but this will help get her to a better position after dealing with the acute issues. 11/19/17: The effusion remains resolved. There is a small pneumothorax which is likely due to the slow withdrawal of the catheter. I will recheck her film at 1130 for a 6hr follow-up. There is also note of an infiltrate but I lean towards this representing atelectasis over a pneumonia at this time. Her WBC is 1.1 which is likely her post-chemo baseline. Her value yesterday was probably due to demargination. I have placed her on protective precautions and recommended IS. 11/19/17: 1145am - Repeat CXR shows no progression of pneumothorax. Effusion is reaccumulating. Will decrease IVF to 100ml/hr with good UOP. 11/20/17: Slow reaccumulation of left effusion, likely due to ovarian cancer with mets to left pleura, cytology is pending. Will follow this. If repeated thoracenteses are required then may need to discuss indwelling pleural catheter. 11/21/17: Slow reaccumulation, relatively stable from yesterday. (3) Ovarian cancer Status: Chronic Condition Stable. Time Spent: < 30 min Exam Sepsis Risk: No Definite Risk Problem Qualifiers (1) Ovarian cancer: Laterality: unspecified laterality Qualified Codes: C56.9 - Malignant neoplasm of unspecified ovary ROXANA MONTANEZ MD Nov 21, 2017 07:28
--- NOTE | 2017-11-21 08:17 | RADIOLOGY IMAGING REPORT ---
FACILITY: [facility] [place] PATIENT NAME: Carolina Hill : 1955 MR: [id number] V: [id number] EXAM DATE: ORDERING PHYSICIAN: ROXANA MONTANEZ TECHNOLOGIST: Location: [facility] Patient: Carolina Hill : 1955 Visit/Account:[id number] Date of Sevice: 11/21/2017 KUB SINGLE VIEW ABDOMEN HISTORY: SBO No comparisons FINDINGS: There are dilated loops of small bowel up to 4 cm in the left mid abdomen. Air-filled colon of a nond ilated nature. No abdominal mass lesions. Laminated gallstone in the right upper quadrant. This measu res over 3 cm in size. Bony structures unremarkable. Surgical clips in the inferior medial right lower abdomen adjacent to the upper right sacrum. IMPRESSION: 1. Study suggesting developing small bowel obstruction. 2. Cholelithiasis. Report Dictated By: Shaquille Acosta MD at 11/21/2017 8:11 AM Report E-Signed By: Shaquille Acosta MD at 11/21/2017 8:15 AM WSN:[id number]
--- NOTE | 2017-11-21 08:32 | RADIOLOGY IMAGING REPORT ---
FACILITY: [facility] - [place] PATIENT NAME: Carolina Hill : 1955 MR: [id number] V: [id number] EXAM DATE: ORDERING PHYSICIAN: ROXANA MONTANEZ TECHNOLOGIST: Location: [facility] Patient: Carolina Hill : 1955 Visit/Account:[id number] Date of Sevice: 11/21/2017 CHEST SINGLE AP INDICATION: Left pleural effusion COMPARISON: 12-06 FINDINGS: Heart size within normal limits. There is a persistent consolidation with pleural effusion noted within left lower lobe and lingula. Small right pleural effusion is slightly increased in size. Small left apical pneumothorax is stable . Nasogastric tube is been removed. Large calcified stone within the gallbladder is again noted. IMPRESSION: 1. Persistent left lower lobe consolidation and probable lingular consolidation with underlying smal l pleural effusion as well as the small left apical pneumothorax are unchanged from prior study. The small right pleural effusion has slightly increased in size. Report Dictated By: Urban White at 11/21/2017 8:12 AM Report E-Signed By: Urban White at 11/21/2017 8:29 AM WSN:[email or web address]
[2017-11-21 09:13] VITALS: BP 109/45
[2017-11-21] MEDS: FAMOTIDINE(*) 20MG/50ML PREMIX 50 ML IVPB SCH ×2 (09:15→20:32)
[2017-11-21] MEDS: ENOXAPARIN 40 MG/0.4ML SYR SC SCH (09:15)
[2017-11-21 11:24] VITALS: BP 103/59
[2017-11-21 15:21] VITALS: BP 103/53
[2017-11-21 19:53] VITALS: BP 132/64
[2017-11-21 22:36] VITALS: BP 108/54
[2017-11-22 02:18] VITALS: BP 111/64
[2017-11-22] MEDS: KCL/D1/2NS 20 MEQ 1000 ML 1,000 ML IV PRN (02:20)
--- NOTE | 2017-11-22 05:27 | General Surgery Progress Note ---
Subjective Progress Notes Subjective No complaints this morning. No abdominal pain. Continues to pass "lots" of flatus and she had another BM overnight. Physical Exam Vital Signs Date Time Temp Pulse Resp B/P (MAP) Pulse Ox O2 Delivery O2 Flow Rate FiO2 11/22/17 02:18 97.5 96 18 111/64 (80) 91 Room Air 11/20/17 02:04 0.5 General Appearance: Alert, Awake, No Acute Distress, Afebrile GI: Soft and Non-Tender Extremities: Warm, Perfused Result Diagram: 11/21/17 0538 11/21/17 0538 Assessment and Plan Problems: (1) Small bowel obstruction Status: Acute Assessment & Plan: 11/18/17: The obstruction appears to be in the distal small bowel. I placed an 18F NGT in the ED after providing 1mg of ativan sedation. There was some difficulty in getting to the posterior pharynx but the procedure overall went well. A x-ray will be obtained to help confirm placement though there was good return of gastric fluid. The tube was positioned at 50cm at the nare. I will reevaluate her in the am for decision of a SBFT. 11/19/17: She is passing gas and her KUB shows clear progress with less distention and air in the colon. However, she does still have dilated loops of small bowel. I will thus keep her NGT on suction at this point until she has more definitive resolution. 11/20/17: Improving. Passing increasing amounts of flatus. KUB improved slightly but still with dilated loops of small bowel. Will try clear diet today but will limit intake to <30mL/4hours. Will recheck x-ray tomorrow morning. If improvement is slow or stalled, will get gastrograffin SBFT tomorrow. 11/21/17: Continued improvement, now passing flatus and BMs. KUB still with dilated loops of small bowel but patient clinically is resolving. Will try clear diet without volume restrictions today. 11/22/17: Clinically resolving SBO. Will start regular diet today. If she does well with this then will plan on d/c to home tomorrow. (2) Pleural effusion, left Status: Acute Assessment & Plan: She has a pleural effusion on the left that completely fills the chest. This was apparently seen previously per the patient but not at this volume. She has not had it drained in the past. I recommend drainage due to the size of the collection via thoracentesis. She may very well need another thoracentesis or pleural catheter at some point but this will help get her to a better position after dealing with the acute issues. 11/19/17: The effusion remains resolved. There is a small pneumothorax which is likely due to the slow withdrawal of the catheter. I will recheck her film at 1130 for a 6hr follow-up. There is also note of an infiltrate but I lean towards this representing atelectasis over a pneumonia at this time. Her WBC is 1.1 which is likely her post-chemo baseline. Her value yesterday was probably due to demargination. I have placed her on protective precautions and recommended IS. 11/19/17: 1145am - Repeat CXR shows no progression of pneumothorax. Effusion is reaccumulating. Will decrease IVF to 100ml/hr with good UOP. 11/20/17: Slow reaccumulation of left effusion, likely due to ovarian cancer with mets to left pleura, cytology is pending. Will follow this. If repeated thoracenteses are required then may need to discuss indwelling pleural catheter. 11/21/17: Slow reaccumulation, relatively stable from yesterday. 11/22/17: Will recheck CXR next week, sooner if she redevelops respiratory symptoms. (3) Ovarian cancer Status: Chronic Condition Stable. Time Spent: < 30 min Exam Sepsis Risk: No Definite Risk Problem Qualifiers (1) Ovarian cancer: Laterality: unspecified laterality Qualified Codes: C56.9 - Malignant neoplasm of unspecified ovary ROXANA MONTANEZ MD Nov 22, 2017 05:27
[2017-11-22] MEDS ORDERED: HEPARIN FLSH (PORT) 500 UN/5ML IVP PRN (06:05)
[2017-11-22 06:23] LABS: PLATELET COUNT, AUTOMATED 68 K/uL (150-450)
[2017-11-22 08:14] VITALS: BP 116/59
[2017-11-22] MEDS: ENOXAPARIN 40 MG/0.4ML SYR SC SCH (08:17)
[2017-11-22] MEDS: FAMOTIDINE 20 MG TAB PO SCH ×2 (08:17→20:27)
[2017-11-22 11:48] VITALS: BP 103/51
[2017-11-22 15:16] VITALS: BP 105/55
--- NOTE | 2017-11-22 16:54 | Medical Nutrition Therapy ---
Nutrition Anthropometrics Height (Inches): 65.00 Height (Calculated Centimeters: 165.181412 Weight (Pounds): 126 Weight (Calculated Kilograms): 57.379 BMI Calculated: 20.97 Francisco Nutrition Score: Adequate Francisco Nutrition Risk Score: 20 Dietary Referral Nutrition Risk Factors: Nutrition Risk Comment: Physical Findings Physical Appearance: WNR Skin Appearance Skin Appearance: Edema Edema Location Modifier: Both Edema Location: Lower Extremity Type of Edema: Degree of Edema: 1+ Gastrointestinal Symptoms GI Symtoms: Nausea Tube Present: NG Bowel Sounds: Recent Bowel Pattern: No Bowel Movement Stool Characteristics: Nutritional Diagnosis Nutritional Risk Acuity 1: GI Obstruction Nutritional Risk Acuity 3: Nausea, Cancer Past Medical History: 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, Colostomy, transverse colonic bowel obstruction, colon resection Nutritional Acuity: 1-High Nutrition Diagnosis: Altered GI Function Nutrition Etiology: Physiological Causes Nutrition Problem/Etiology/Sym: Altered Gastrointestinal (GI) Function related to alteration in gastrointestinal tract function secondary to SBO AEB positive SBO diagnosis with CT of the abdomen and abdominal pain, nausea prior to admit. Energy Requirement: 1800 ([place]-St Jeor: Actual BW X 1.6) Protein Requirement: 60 (Actual BW Kg X 1.0) Fluid Requirement: 1800 Diet Type: Clear Liquids Nutrition Intervention: Incr diet as tolerated Nutrition Monitoring & Eval Nutrition Goals: Eat 75-100% Meal Nutrition Follow-Up: Fair Intake RD Patient Assessment Time: [address] Assessment Type: RD Re-Assessment Patient Nutrition Acuity: 1-High Follow Up Date: Nov 23, 2017 Nutritional Comment: Pt admitted for SBO. Alb 3.4, Low Ca+, Creat. WNR wt with BMI of 21.0. Pt currently receiving chemo for ovarian carcinoma. Currently NPO r/t SBO. Monitor diet progression, labs, etc. 1/2 Per MD note, pt is passing flatus and appetite is coming back. Upgraded to clear liquids but limited to <30 ml every 4 hrs. H/H low and alb 3.4. Will continue to monitor and encourage intake as diet progresses. 1/4 Per MD note, pt is passing flatus and now BM's. Upgraded to diet as tolerated with 50% intake at breakfast. H/H cont low. BUN/Cr low and Na 135. MD note states possible discharge tomorrow if she continues to improve. Will continue to monitor and encourage intake. YINA ABIG Nov 22, 2017 12:31
[2017-11-22 19:07] VITALS: BP 110/63
[2017-11-23 05:42] VITALS: BP 114/51
--- NOTE | 2017-11-23 07:21 | Short(Outpt) Discharge Summary ---
Discharge Summary Reason for Hosp/Final Diag: (1) Small bowel obstruction Status: Acute Hospital Course & Plan: 11/18/17: The obstruction appears to be in the distal small bowel. I placed an 18F NGT in the ED after providing 1mg of ativan sedation. There was some difficulty in getting to the posterior pharynx but the procedure overall went well. A x-ray will be obtained to help confirm placement though there was good return of gastric fluid. The tube was positioned at 50cm at the nare. I will reevaluate her in the am for decision of a SBFT. 11/19/17: She is passing gas and her KUB shows clear progress with less distention and air in the colon. However, she does still have dilated loops of small bowel. I will thus keep her NGT on suction at this point until she has more definitive resolution. 11/20/17: Improving. Passing increasing amounts of flatus. KUB improved slightly but still with dilated loops of small bowel. Will try clear diet today but will limit intake to <30mL/4hours. Will recheck x-ray tomorrow morning. If improvement is slow or stalled, will get gastrograffin SBFT tomorrow. 11/21/17: Continued improvement, now passing flatus and BMs. KUB still with dilated loops of small bowel but patient clinically is resolving. Will try clear diet without volume restrictions today. 11/22/17: Clinically resolving SBO. Will start regular diet today. If she does well with this then will plan on d/c to home tomorrow. 11/23/17: Doing well. Tolerating a regular diet. Passing flatus and BMs without problems. Breathing without problems. Will d/c to home today and I will see her back in my office next week and will recheck a CXR before that appointment. (2) Pleural effusion, left Status: Acute Hospital Course & Plan: She has a pleural effusion on the left that completely fills the chest. This was apparently seen previously per the patient but not at this volume. She has not had it drained in the past. I recommend drainage due to the size of the collection via thoracentesis. She may very well need another thoracentesis or pleural catheter at some point but this will help get her to a better position after dealing with the acute issues. 11/19/17: The effusion remains resolved. There is a small pneumothorax which is likely due to the slow withdrawal of the catheter. I will recheck her film at 1130 for a 6hr follow-up. There is also note of an infiltrate but I lean towards this representing atelectasis over a pneumonia at this time. Her WBC is 1.1 which is likely her post-chemo baseline. Her value yesterday was probably due to demargination. I have placed her on protective precautions and recommended IS. 11/19/17: 1145am - Repeat CXR shows no progression of pneumothorax. Effusion is reaccumulating. Will decrease IVF to 100ml/hr with good UOP. 11/20/17: Slow reaccumulation of left effusion, likely due to ovarian cancer with mets to left pleura, cytology is pending. Will follow this. If repeated thoracenteses are required then may need to discuss indwelling pleural catheter. 11/21/17: Slow reaccumulation, relatively stable from yesterday. 11/22/17: Will recheck CXR next week, sooner if she redevelops respiratory symptoms. (3) Ovarian cancer Status: Chronic Departure Discharge to: Home, Self Care Discharge Instructions Home Meds Reported Medications Mv,Ca,Min/Iron Fum/Fa/Vit K (MULTI FOR HER TABLET) 1 Each Tablet, 1 EACH PO DAILY 11/20/17 Cyanocobalamin (Vitamin B-12) (B-12) 500 Mcg Tab.rapdis, 50 MCG PO DAILY 11/20/17 Folic Acid (FOLIC ACID) 1 Mg Tablet, 1 MG PO QDAY, TAB 11/20/17 Mu-Vits-Min Th/Lycopene/Lutein (CENTRUM SILVER TABLET) 1 Each Tablet, 1 EACH PO DAILY 11/20/17 Potassium Chloride (POTASSIUM CHLORIDE) 20 Meq Tab.er.prt, 20 MEQ PO BIDBS 11/20/17 Discontinued Reported Medications Niraparib Tosylate (Zejula) 100 Mg Capsule, 300 MG PO DAILY 11/20/17 Niraparib Tosylate (Zejula) 100 Mg Capsule, 100 MG PO DAILY 09/04/17 Mu-Vits-Min Th/Lycopene/Lutein (CENTRUM SILVER TABLET) 1 Each Tablet, 1 EACH PO QDAY 08/29/17 Folic Acid (FOLIC ACID) 1 Mg Tablet, 1 MG PO QDAY, TAB 7/28/17 Cyanocobalamin (Vitamin B-12) (VITAMIN B-12) 50 Mcg Tablet, 50 MCG PO DAILY 04/07/16 Mv,Ca,Min/Iron Fum/Fa/Vit K (MULTI FOR HER TABLET) 1 Each Tablet, 1 EACH PO 04/17/13 Discontinued Scripts Potassium Chloride (POTASSIUM CHLORIDE) 20 Meq Tab.er.prt, 1 TAB PO BIDBS, #30 TAB 0 Refills Prov:ROXANA MONTANEZ MD 08/22/17 Niraparib Tosylate (Zejula) 100 Mg Capsule, 300 MG PO DAILY, #90 CAP Prov:HUGO MORROW HEEL MOLDER-BC, ONC 08/20/17 Follow up Referrals: General Surgery - 11/30/17 @ Surgery, General with Roxana Montanez Md You have a follow up appointment scheduled with Dr. Montanez on 11/30/17, at 12: 00pm. Please get a chest x-ray in radiology before your appointment. Diet: Regular Activity: As Tolerated Problem Qualifiers (1) Ovarian cancer: Laterality: unspecified laterality Qualified Codes: C56.9 - Malignant neoplasm of unspecified ovary ROXANA MONTANEZ MD Nov 23, 2017 07:21
[2017-11-23] MEDS: FAMOTIDINE 20 MG TAB PO SCH (07:53)
[2017-11-23] MEDS: ENOXAPARIN 40 MG/0.4ML SYR SC SCH (07:53)
[2017-11-23 08:01] VITALS: BP 100/42
[2017-11-23 11:23] VITALS: BP 109/60
--- NOTE | 2017-11-23 16:52 | Medical Nutrition Therapy ---
YINA BAIG 11/23/17 1249: Nutrition Anthropometrics Height (Inches): 65.00 Height (Calculated Centimeters: 165.543524 Weight (Pounds): 126 Weight (Calculated Kilograms): 57.379 BMI Calculated: 20.97 Francisco Nutrition Score: Adequate Francisco Nutrition Risk Score: 17 Dietary Referral Nutrition Risk Factors: Nutrition Risk Comment: Physical Findings Physical Appearance: WNR Skin Appearance Skin Appearance: Edema Edema Location Modifier: Both Edema Location: Lower Extremity Type of Edema: Degree of Edema: 1+ Gastrointestinal Symptoms GI Symtoms: Nausea Tube Present: NG Bowel Sounds: Recent Bowel Pattern: No Bowel Movement Stool Characteristics: Nutritional Diagnosis Nutritional Risk Acuity 1: GI Obstruction Nutritional Risk Acuity 3: Nausea, Cancer Past Medical History: 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, Colostomy, transverse colonic bowel obstruction, colon resection Nutritional Acuity: 1-High Nutrition Diagnosis: Altered GI Function Nutrition Etiology: Physiological Causes Nutrition Problem/Etiology/Sym: Altered Gastrointestinal (GI) Function related to alteration in gastrointestinal tract function secondary to SBO AEB positive SBO diagnosis with CT of the abdomen and abdominal pain, nausea prior to admit. Energy Requirement: 1800 ([place]-St Jeor: Actual BW X 1.6) Protein Requirement: 60 (Actual BW Kg X 1.0) Fluid Requirement: 1800 Diet Type: Diet as Tolerated REBEKAH/REG Nutrition Intervention: Cont diet as ordered, Encourage intake Nutrition Monitoring & Eval Nutrition Goals: Eat 75-100% Meal Nutrition Follow-Up: Good Intake RD Patient Assessment Time: [address] Assessment Type: RD Re-Assessment Patient Nutrition Acuity: 1-High Follow Up Date: Nov 26, 2017 Nutritional Comment: Pt admitted for SBO. Alb 3.4, Low Ca+, Creat. WNR wt with BMI of 21.0. Pt currently receiving chemo for ovarian carcinoma. Currently NPO r/t SBO. Monitor diet progression, labs, etc. 1/2 Per MD note, pt is passing flatus and appetite is coming back. Upgraded to clear liquids but limited to <30 ml every 4 hrs. H/H low and alb 3.4. Will continue to monitor and encourage intake as diet progresses. 1/4 Per MD note, pt is passing flatus and now BM's. Upgraded to diet as tolerated with 50% intake at breakfast. H/H cont low. BUN/Cr low and Na 135. MD note states possible discharge tomorrow if she continues to improve. Will continue to monitor and encourage intake. 1/5 Pt tolerating REBEKAH and most likely discharging today, per MD. Passing flatus and BM's without problems. Pt averaging 81% intake of small to regular portions. Notable labs include low H/H, Na 135, BUN <2, and Cr 0.5. Will continue to monitor intake and labs. PROSPER HERNANDEZ 11/23/17 1652: Nutrition Monitoring & Eval Nutritional Comment: Reviewed and approve general intern assessment. YINA BAIG Nov 23, 2017 12:49 PROSPER HERNANDEZ Nov 23, 2017 16:52
== END 2017-11-23 12:45 | disposition home or self-care (01) | DRG 389 ==
LOC: ER 11:42 → MED 17:28
PROVIDERS: ADMIT Surgery; ATTEND Surgery
PROC: 0W9B3ZX Drainage of Left Pleural Cavity, Percutaneous Approach, Diagnostic (ICD-10-PCS; principal; 2017-11-18)
DX: K56.600 Partial intestinal obstruction, unspecified as to cause (principal); J93.9 Pneumothorax, unspecified; J98.11 Atelectasis; C56.9 Malignant neoplasm of unspecified ovary; Z88.8 Allergy status to other drugs, medicaments and biological substances; Z90.710 Acquired absence of both cervix and uterus; Z92.21 Personal history of antineoplastic chemotherapy; Z85.068 Personal history of other malignant neoplasm of small intestine
CPT/HCPCS: 36415; 71010; 71045; 71046; 71250; 74018; 74177; 81001; 82040; 82150; 82247; 82310; 82374; 82435; 82565; 82945; 82947; 83615; 83690; 83986; 84075; 84132; 84155; 84157; 84295; 84450; 84460; 84520; 85025; 86304; 87071; 88104; 89050; 96361; 96365; 96375; 99285; A7048; J0131; J1642; J1650; J2060; J2405; J2550; J3480; J3490; J7030; J7050; Q9967

== ENCOUNTER 2017-11-27 15:52 | Inpatient (IN) | payer BC ==
[~2017-11-27] VITALS: Ht 167.6 cm; Wt 54.9 kg
[~2017-11-27 15:52] MED LIST changes: +CYAN500L6 PO
[2017-11-27 16:21] VITALS: BP 111/54
[2017-11-27] MEDS ORDERED: NS(*) 0.9% 1000 ML BAG 1,000 ML IV PRN (17:03)
[2017-11-27] MEDS ORDERED: PROMETHAZINE 25 MG/ML 1 ML AMP IVP PRN ×2 (17:05→17:15)
[2017-11-27] MEDS ORDERED: FLUSH 10 ML SYR IVP PRN (17:05)
[2017-11-27] MEDS ORDERED: HYDROmorphone PCA 6 MG/30 ML IV PRN (17:05)
[2017-11-27] MEDS ORDERED: ONDANSETRON 4 MG/2 ML VIAL IVP PRN (17:05)
[2017-11-27] MEDS ORDERED: NALOXONE HCL 0.4 MG/ML VIAL IVP PRN (17:05)
--- NOTE | 2017-11-27 18:25 | Gen Surgery History & Physical ---
History of Present Illness Chief Complaint Abdominal pain, nausea, vomiting History of Present Illness 62-year-old female, recently discharged after an admission for a small bowel obstruction, presents to the cancer center with worsening abdominal discomfort with nausea and vomiting. She has stage IV ovarian cancer and has undergone several abdominal operations including hysterectomy and debulking and several months ago had a transverse colonic obstruction treated with initially a blowhole transverse colostomy proximal to the obstruction due to her being on avastin and then a subsequent exploratory laparotomy with transverse colectomy and reanastomosis as well as colostomy reversal. She healed well from that operation and had restarted her chemotherapy when she developed abdominal bloating, pain, nausea, and vomiting. She was managed conservatively with NG tube decompression and bowel rest and seemed to recover from this and was discharged from the hospital 4 days ago and was doing well until yesterday when she experienced abdominal discomfort with nausea and vomiting which persisted throughout the night prompting them to contact the cancer center. The cancer center contacted me and I agreed to admit the patient for further evaluation and treatment. The patient reports that since several hours ago she has been passing flatus. Her last bowel movement was yesterday. She is in no pain. No further nausea or vomiting. History Problems: (1) Ovarian cancer Status: Chronic (2) Metastatic adenocarcinoma to uterus Status: Chronic (3) S/P colectomy Status: Chronic Home Meds Reported Medications Cyanocobalamin (Vitamin B-12) (B-12) 500 Mcg Tab.rapdis, 50 MCG PO DAILY 11/20/17 Mu-Vits-Min Th/Lycopene/Lutein (CENTRUM SILVER TABLET) 1 Each Tablet, 1 EACH PO DAILY 11/20/17 Discontinued Reported Medications Mv,Ca,Min/Iron Fum/Fa/Vit K (MULTI FOR HER TABLET) 1 Each Tablet, 1 EACH PO DAILY 11/20/17 Folic Acid (FOLIC ACID) 1 Mg Tablet, 1 MG PO QDAY, TAB 11/20/17 Potassium Chloride (POTASSIUM CHLORIDE) 20 Meq Tab.er.prt, 20 MEQ PO BIDBS 11/20/17 Niraparib Tosylate (Zejula) 100 Mg Capsule, 300 MG PO DAILY 11/20/17 Allergies: Coded Allergies: niraparib (Verified Adverse Reaction, Intermediate, sores on mouth, ) Patient History: FH: diabetes mellitus MOTHER, , Age:62 Review of Systems All Systems Reviewed/Normal: Yes, Except as Noted Gastrointestinal: Nausea, Vomiting, Abdominal Pain Exam General Appearance: Alert, Awake, No Acute Distress, Afebrile Neuro: No Gross deficits Eyes: PERRLA GI: Abd Soft and Non-Tender Extremities: Warm, Perfused Assessment and Plan Problems: (1) Small bowel obstruction Status: Acute Assessment & Plan: 11/27/17: She seems to be doing pretty good at the moment. Her KUB is consistent with a bowel obstruction but does not really look much worse then her last KUB last week. We'll continue bowel rest. She is not nauseated or vomiting at the moment so we'll hold off on an NG tube. We'll repeat a KUB in the morning and will likely get a small bowel follow-through with water soluble contrast tomorrow. We'll again attempt conservative management but further management based on the studies to be completed tomorrow. We will have her on IV fluids with potassium in them and will use Lovenox for DVT prophylaxis and PPI for GI prophylaxis. She seems agreeable with this plan. (2) Pleural effusion, left Status: Acute Assessment & Plan: This seems to be better then even last week after having thoracentesis performed by Dr. Bruno. It does not seem to be reaccumulating at this time. Condition Stable Time Spent: < 30 min Venous Thromboembolism VTE Risk Physician Assess for VTE Risk: Yes Patient's VTE Risk: High VTE Diagnostic Test 2 Days Prior to Admit: No Antithrombotics Is Pt On Any Antithrombotics?: Yes ROXANA MONTANEZ MD Nov 27, 2017 18:25
[2017-11-27 19:06] VITALS: BP 113/49
[2017-11-27] MEDS: KCL/D1/2NS 20 MEQ 1000 ML 1,000 ML IV SCH (19:37)
[2017-11-27 23:40] VITALS: BP 99/54
[2017-11-28 03:19] VITALS: BP 104/47
[2017-11-28] MEDS: KCL/D1/2NS 20 MEQ 1000 ML 1,000 ML IV SCH ×2 (03:23→13:00)
[2017-11-28 05:19] LABS: PLATELET COUNT, AUTOMATED 206 K/uL (150-450)
--- NOTE | 2017-11-28 06:35 | RADIOLOGY IMAGING REPORT ---
FACILITY: [facility] PATIENT NAME: Carolina Hill : 1955 MR: [id number] V: [id number] EXAM DATE: ORDERING PHYSICIAN: ROXANA MONTANEZ TECHNOLOGIST: Location: [facility] [place] Patient: Carolina Hill : 1955 Visit/Account:[id number] Date of Sevice: 11/28/2017 KUB SINGLE VIEW ABDOMEN COMPARISONS: November 27, 2017 ADDITIONAL PERTINENT HISTORY: Small bowel obstruction. FINDINGS: Lung bases: Negative. Supine evidence of free air: None. Bowel gas pattern: Continued dilated loops of small bowel in the midabdomen somewhat improved since p revious exam. Surrounding soft tissues and solid organs: Surgical clips in the lower abdomen. Osseous structures: Mild scoliotic curvature convex to the right centered at L3. IMPRESSION: 1. Improving but persistent underlying small bowel obstruction. Report Dictated By: Dennis Esquivel MD at 11/28/2017 6:28 AM Report E-Signed By: Dennis Esquivel MD at 11/28/2017 6:30 AM WSN:[id number]
[2017-11-28 07:09] VITALS: BP 92/54
--- NOTE | 2017-11-28 07:14 | General Surgery Progress Note ---
Subjective Progress Notes Subjective No complaints. No pain. No N/V. Passing flatus. Physical Exam Vital Signs Date Time Temp Pulse Resp B/P (MAP) Pulse Ox O2 Delivery O2 Flow Rate FiO2 11/28/17 07:09 98.0 79 18 92/54 (67) 95 Room Air General Appearance: Alert, Awake, No Acute Distress, Afebrile GI: Soft and Non-Tender Extremities: Warm, Perfused Result Diagram: 11/28/17 0500 11/28/17 0500 Assessment and Plan Problems: (1) Small bowel obstruction Status: Acute Assessment & Plan: 11/27/17: She seems to be doing pretty good at the moment. Her KUB is consistent with a bowel obstruction but does not really look much worse then her last KUB last week. We'll continue bowel rest. She is not nauseated or vomiting at the moment so we'll hold off on an NG tube. We'll repeat a KUB in the morning and will likely get a small bowel follow-through with water soluble contrast tomorrow. We'll again attempt conservative management but further management based on the studies to be completed tomorrow. We will have her on IV fluids with potassium in them and will use Lovenox for DVT prophylaxis and PPI for GI prophylaxis. She seems agreeable with this plan. 11/28/17: Doing well. KUB improved but still with some dilated loops of small intestines. Will get SBFT with water-soluble contrast today. (2) Pleural effusion, left Status: Acute Assessment & Plan: This seems to be better then even last week after having thoracentesis performed by Dr. Bruno. It does not seem to be reaccumulating at this time. Condition STable. Time Spent: < 30 min Exam Sepsis Risk: No Definite Risk ROXANA MONTANEZ MD Nov 28, 2017 07:14
[2017-11-28 09:09] VITALS: Ht 167.6 cm; Wt 54.9 kg
[2017-11-28] MEDS: ENOXAPARIN 40 MG/0.4ML SYR SC SCH (09:12)
[2017-11-28] MEDS: PANTOPRAZOLE SOD 40 MG IV VIAL IVP SCH (09:12)
[2017-11-28] MEDS ORDERED: DIATRIZOATE MEGL/DIATRIZOA SOD 120 ML SOLN PO ONE (11:00)
[2017-11-28 11:32] VITALS: BP 100/46
--- NOTE | 2017-11-28 14:10 | RADIOLOGY IMAGING REPORT ---
FACILITY: [facility] PATIENT NAME: Carolina Hill : 1955 MR: [id number] V: [id number] EXAM DATE: ORDERING PHYSICIAN: ROXANA MONTANEZ TECHNOLOGIST: Location: [facility] Patient: Carolina Hill : 1955 Visit/Account:[id number] Date of Sevice: 11/28/2017 Exam type: CHEST SINGLE AP History: SB series, confirm NG placement Comparison: December 07, 2017. Findings: Some placement of an NG/OG tube with the distal tip projecting left upper quadrant abdomen. This is likely within the gastric body. Right-sided implanted port again seen with distal tip projecting ove r the superior vena cava. Small pleural effusion and small amount of streaky consolidation left lung base remains unchanged. Cardiac silhouette is normal in size. IMPRESSION: 1. Tip of the NG tube projects over the left upper quadrant of abdomen presumably within the gastric body Small left pleural effusion and small amount left basilar airspace consolidation remains unchanged Report Dictated By: Katie Alvarado MD at 11/28/2017 1:41 PM Report E-Signed By: Katie Alvarado MD at 11/28/2017 2:06 PM [email or web address]
[2017-11-28 15:57] VITALS: BP 108/61
--- NOTE | 2017-11-28 16:25 | RADIOLOGY IMAGING REPORT ---
FACILITY: [facility] PATIENT NAME: Carolina Hill : 1955 MR: [id number] V: [id number] EXAM DATE: ORDERING PHYSICIAN: ROXANA MONTANEZ TECHNOLOGIST: Location: [facility] Patient: Carolina Hill : 1955 Visit/Account:[id number] Date of Sevice: 11/28/2017 Exam type: SMALL BOWEL SERIES History: SBO; WATER SOLUBLE CONTRAST ONLY Comparison: KUB performed earlier in the day. Findings: Patient received Gastrografin suspension through her NG tube. The immediate image postcontrast admin istration demonstrated moderate gaseous distention of several loops of small bowel left-sided abdomen measuring up to 4.6 cm in diameter. The visualized proximal jejunal loops did not appear dilated. The Gastrografin suspension was followed throughout the small bowel to the right-sided the colon. Th e Gastrografin reached the right-sided colon at one hour. The moderately dilated small bowel loops a nd left-sided abdomen appeared to be at least partially decompressed as the Gastrografin passed throu gh. A definite transitional point is not seen. IMPRESSION: 1. There was transient dilatation of small bowel loops although the Gastrografin did pass to the rig ht-sided colon within one hour. These changes may be the reflection of an ileus. Clinical correlati on needed Report Dictated By: Katie Alvarado MD at 11/28/2017 4:18 PM Report E-Signed By: Katie Alvarado MD at 11/28/2017 4:20 PM WSN:[email or web address]
[2017-11-28 19:19] VITALS: BP 92/46
[2017-11-29 01:29] VITALS: BP 115/54
[2017-11-29] MEDS: KCL/D1/2NS 20 MEQ 1000 ML 1,000 ML IV SCH ×2 (01:30→17:16)
[2017-11-29 05:58] LABS: PLATELET COUNT, AUTOMATED 227 K/uL (150-450)
--- NOTE | 2017-11-29 06:10 | RADIOLOGY IMAGING REPORT ---
FACILITY: [facility] PATIENT NAME: Carolina Hill : 1955 MR: [id number] V: [id number] EXAM DATE: ORDERING PHYSICIAN: ROXANA MONTANEZ TECHNOLOGIST: Location: [facility] Patient: Carolina Hill : 1955 Visit/Account:[id number] Date of Sevice: 11/29/2017 KUB SINGLE VIEW ABDOMEN COMPARISONS: Views of the abdomen dated November 28, 2017 ADDITIONAL PERTINENT HISTORY: Small bowel obstruction FINDINGS: Lung bases: Not imaged Supine evidence of free air: None. Bowel gas pattern: Contrast material within the colon. There has been interval transit of contrast fr om the small bowel and stomach from previous exam. No significant dilated loops of small bowel are no john. Surrounding soft tissues and solid organs: Surgical clips in the right lower abdomen. Osseous structures: Negative. IMPRESSION: 1. No evidence of acute intra-abdominal process on today's exam. Report Dictated By: Dennis Esquivel MD at 11/29/2017 6:04 AM Report E-Signed By: Dennis Esquivel MD at 11/29/2017 6:06 AM WSN:[id number]
--- NOTE | 2017-11-29 07:10 | General Surgery Progress Note ---
Subjective Progress Notes Subjective No complaints. Feeling better. No N/V, no passing flatus and BMs. Physical Exam Vital Signs Date Time Temp Pulse Resp B/P (MAP) Pulse Ox O2 Delivery O2 Flow Rate FiO2 11/29/17 01:29 97.3 84 16 115/54 (74) 91 Room Air General Appearance: Alert, Awake, No Acute Distress, Afebrile GI: Soft and Non-Tender Extremities: Warm, Perfused Result Diagram: 11/29/17 0530 11/29/17 0530 Assessment and Plan Problems: (1) Small bowel obstruction Status: Acute Assessment & Plan: 11/27/17: She seems to be doing pretty good at the moment. Her KUB is consistent with a bowel obstruction but does not really look much worse then her last KUB last week. We'll continue bowel rest. She is not nauseated or vomiting at the moment so we'll hold off on an NG tube. We'll repeat a KUB in the morning and will likely get a small bowel follow-through with water soluble contrast tomorrow. We'll again attempt conservative management but further management based on the studies to be completed tomorrow. We will have her on IV fluids with potassium in them and will use Lovenox for DVT prophylaxis and PPI for GI prophylaxis. She seems agreeable with this plan. 11/28/17: Doing well. KUB improved but still with some dilated loops of small intestines. Will get SBFT with water-soluble contrast today. 11/29/17: Doing better. SBFT reveals contrast going rapidly into colon. KUB looks better this morning. Will continue clear diet this morning since she hasn 't yet had much and will advance later today if she tolerates clears today. (2) Pleural effusion, left Status: Acute Assessment & Plan: This seems to be better then even last week after having thoracentesis performed by Dr. Bruno. It does not seem to be reaccumulating at this time. Condition Stable. Time Spent: < 30 min Exam Sepsis Risk: No Definite Risk ROXANA MONTANEZ MD Nov 29, 2017 07:10
[2017-11-29 07:46] VITALS: BP 106/53
[2017-11-29] MEDS: PANTOPRAZOLE SOD 40 MG IV VIAL IVP SCH (08:33)
[2017-11-29] MEDS: ENOXAPARIN 40 MG/0.4ML SYR SC SCH (08:34)
[2017-11-29 11:22] VITALS: BP 90/47
--- NOTE | 2017-11-29 14:09 | Medical Nutrition Therapy ---
Nutrition Anthropometrics Height (Inches): 66.00 Height (Calculated Centimeters: 167.986755 Weight (Pounds): 121 Weight (Calculated Kilograms): 55.168 BMI Calculated: 19.53 Francisco Nutrition Score: Probably Inadequate Francisco Nutrition Risk Score: 18 Dietary Referral Nutrition Risk Factors: Unplanned Loss >10lbs Nutrition Risk Comment: Physical Findings Physical Appearance: Normal 19.6 Skin Appearance Skin Appearance: Edema Edema Location Modifier: Edema Location: Type of Edema: Degree of Edema: Gastrointestinal Symptoms GI Symtoms: Nausea Tube Present: Bowel Sounds: Recent Bowel Pattern: Stool Characteristics: Nutritional Diagnosis Nutritional Risk Acuity 1: GI Obstruction Nutritional Risk Acuity 3: Weight Loss Nutritional Risk Acuity 4: %IBW 90-100% Past Medical History: 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, Colostomy, transverse colonic bowel obstruction, colon resection Nutritional Acuity: 1-High Nutrition Diagnosis: Altered GI Function Nutrition Etiology: Physiological Causes Nutrition Problem/Etiology/Sym: Altered GI function r/t small bowel obstruction AEB abd xray and lack of BM's/flatus Energy Requirement: 1460 ([place] St Jeor) Protein Requirement: 66 (1.2 g/kg) Fluid Requirement: 1650 Diet Type: Clear Liquids Nutrition Intervention: Encourage intake, Incr diet as tolerated Diet Comment To RSA: PLEASE OFFER ENSURE CLEAR Nutrition Monitoring & Eval RD Patient Assessment Time: [address] Assessment Type: RD Assessment Patient Nutrition Acuity: 1-High Follow Up Date: Nov 30, 2017 Nutritional Comment: 11/28 Pt admitted for SBO. Pt was just recently discharged 11/23 after another SBO. Pt put on bowel rest/NPO to see if it resolves again. Notable labs H/H low, Na 136, Cr 0.5, and Ca 8. Pt has lost 5 lbs since 11/20, which is a 3.6% loss in a week. Will continue to monitor as diet advances. 11/29 Pt advanced to clear liquid diet. No flatus/BM's but abd xray is improving. Will offer ensure clear. Notable labs include low H/H, Na 135, and Cr 0.5. Will continue to encourage intake of clear liquids and monitor as diet progresses. YINA BAIG Nov 29, 2017 12:03
[2017-11-29 14:53] VITALS: BP 111/46
[2017-11-29 19:30] VITALS: BP 101/54
--- NOTE | 2017-11-29 20:31 | ONCOLOGY FOLLOW UP NOTE ---
EVENT DATE: November 29, 2017 DIAGNOSES 1. Recurrent ovarian carcinoma. 2. 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 3. Partial small bowel obstruction. CHIEF COMPLAINT Patient was admitted to the hospital with a small bowel obstruction. ONCOLOGY HISTORY The patient is a 61-year-old woman who presented in February 2010 with vaginal spotting. On March 25, 2010 pelvic ultrasound showed markedly enlarged ovaries bilaterally with cystic areas with thick septation. CA-125 was 632. On March CT of abdomen and pelvis showed large septated cystic mass encompassing both ovaries. On March 30, 2016 a staging laparotomy with total abdominal hysterectomy and bilateral salpingo-oophorectomy with surgical staging showed bilateral 10 cm to 12 cm ovarian masses attached to the posterior uterus with 5 mm metastatic lesion on the posterior cul-de-sac. Pathology was positive for left ovarian 23.5 cm poorly differentiated endometrioid adenocarcinoma with 10 cm right ovarian tumor with poorly differentiated endometrioid adenocarcinoma with capsular rupture involving the left and right ovaries and right fallopian tube with implant on the posterior surface on the uterus and the cul-de-sac. Postoperative course was complicated by small bowel obstruction resolved with conservative therapy. CA-125 postoperatively was 46. Pelvic washings were also negative. One right pelvic lymph node was negative. Four left pelvic lymph nodes were negative. Paraaortic lymph node was also negative. Other four regional lymph nodes were also negative, so the lymph nodes were all negative. The patient's tumor was staged as stage IIB (T2b N0 M0) FIGO grade 3. The patient received six cycles of carboplatin and Paclitaxel between June 17, 2010 through October 06, 2010. The patient had hernia repair on May 28, 2015 followed by fluid accumulation and firmness in the lower abdomen and erythema of the skin of the lower abdomen, treated for possible cellulitis with multiple antibiotics without improvement. She also had persistent nausea and vomiting without colic abdominal pain. CT of the abdomen and pelvis with contrast done on October 23, 2015 revealed abnormal soft tissue thickening and inflammatory change along the hernia mesh with proximal small bowel dilatation with small bowel appearing partially tapered underlying the hernia mesh with small bowel multiple air fluid levels. There was decompression of the rest of the small bowel and colon. There were slightly enlarged mesenteric nodes. There was also some nodularity along the omentum and the mesentery, and a new mass invading into the left pelvic sidewall, 6.3 cm in size. PET-CT scan done on November 18, 2015 revealed the mass was in the left hemipelvis anterior to the iliacus muscle measuring 5 x 6 cm with SUV value of 19.3, peritoneal metastatic disease anteriorly extending to the right and left about 10 cm in the cephalocaudad extent and 1 cm in thickness, SUV value approaches 8.6. The patient received one cycle of carboplatin and Abraxane on November 17, 2015, but her CA-125 alessandro from 145 to 227 and her small bowel obstruction got worse, so the patient after that started treatment with FOLFIRI and Avastin was not given at that time for fear of the small bowel obstruction and perforation. She received her first cycle of FOLFIRI on December 08, 2015. She received her second cycle of chemotherapy on December with FOLFIRI, and she showed a CA-125 response. She received a third cycle of FOLFIRI on January 05, 2016 and Avastin added to her fourth cycle on January 19, 2016. The patient received a total of sixteen cycles of Avastin and FOLFIRI, completed in June 2016. The patient started maintenance chemotherapy with Avastin, 5-FU and leucovorin on September 26, 2016. Patient started treatment with Avastin and Alimta on June 14, 2017. HISTORY OF PRESENT ILLNESS Patient was admitted with a small bowel obstruction and had colostomy done recently, August 16, 2017. After that she had recurrent episodes of small bowel obstruction treated conservatively. At this time the patient was admitted for a small bowel obstruction after presenting with nausea and vomiting , and treated conservatively with bowel rest, with improvement. Patient also was found to have left pleural effusion and she had thoracentesis of the left pleural fluid on November 18, 2017 with 2350 mL aspirated, and cytology was positive for proteinaceous debris with rare inflammatory cells. She is doing fine currently and she is complaining of diarrhea after taking laxative. PAST MEDICAL HISTORY Ovarian carcinoma. PAST SURGICAL HISTORY 1. In 1993, the patient had removal of ectopic . 2. In 2007, the patient had repair of detached left retina. 3. In 2007, the patient had right cataract extraction. 4. On March 30, 2010, the patient had a total abdominal hysterectomy (salpingo- oophorectomy with staging laparotomy with diagnosis of bilateral ovarian carcinoma). SOCIAL HISTORY The patient is . 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 Denies any abuse of tobacco, alcohol or drugs. FAMILY HISTORY Father had lung cancer and with that at the age of 62. CURRENT MEDICATIONS 1. Potassium chloride 20 mEq daily. 2. Aspirin 81 mg daily. 3. Pyridoxine 25 mg daily. 4. Vitamin B12 at 50 mcg daily. 5. Zofran 8 mg q.12h. p.r.n. for nausea and vomiting. 6. Multivitamin once daily. ALLERGIES No known drug allergies. REVIEW OF SYSTEMS CONSTITUTIONAL: No appetite or weight change. No fever, chills or sweating. No recent infection. HEENT: Ears: No tinnitus or hearing problem. Nose: Patient has nasal discharge. Throat: No sore throat or mouth ulcers. Eyes: No diplopia or visual changes. RESPIRATORY: Patient has occasional wheezing from asthma. CARDIOVASCULAR: No chest pain, orthopnea, or paroxysmal nocturnal dyspnea (PND) . No edema. No palpitations. GASTROINTESTINAL: She has diarrhea. GENITOURINARY: No hematuria or dysuria. NEUROLOGICAL: Patient has occasional headache. HEMATOLOGIC/LYMPHATIC: No bleeding or easy bruising. No weakness or fatigue. No enlarged lymph nodes. SKIN: No skin rash or lumps. PSYCHIATRIC: No anxiety or depression. PHYSICAL EXAMINATION GENERAL: Looks stable. Well-developed, well-nourished, and in no acute distress. HEENT: Head: Atraumatic. No sinus tenderness to palpation. Eyes: No icterus or conjunctivitis. Mouth and throat: No oral thrush or mucositis. NECK: Supple. No cervical or supraclavicular lymphadenopathy. LUNGS: Clear to auscultation and percussion bilaterally. HEART: Regular rate and rhythm. No gallops, murmurs, clicks or rubs. ABDOMEN: Bowel sounds are audible. EXTREMITIES: No cyanosis, clubbing or edema. LYMPHATICS: No peripheral lymphadenopathy. NEUROLOGICAL: Conscious, alert and oriented times three. No focal motor or sensory deficits. PSYCHIATRIC: Mood and affect appear normal. SKIN: No skin rash, bruise or purpuric eruption. DIAGNOSTIC DATA CBC showed white count 9.4, hemoglobin 11.4, hematocrit 35.4, platelets 291, 000. Chem panel totally normal except alkaline phosphatase 151 and blood sugar 120. CA-125 is 110 which is down from 149. ASSESSMENT 1. Recurrent ovarian carcinoma. Patient treated with carboplatin and Taxol without improvement, with her first recurrence, and the treatment was switched after that to FOLFIRI and Avastin, and she received 16 cycles of FOLFIRI, and Avastin was added after resolution of her small bowel obstruction at that time. She did fine after that and she was maintained on 5-FU, leucovorin and Avastin until she presented with recurrence of her abdominal pain. PET scan came back positive for a mass, which is palpable in the abdomen with some activity also in the left posterior pleura, and the pleural effusion was SUV 2.77. Patient started salvage chemotherapy with Avastin and Alimta June 14, 2017 after her first cycle. She developed nausea, vomiting and diarrhea. She received two cycles of Avastin and Alimta and patient had a lot of side effects and she developed again bowel obstruction, so the patient was seen by Dr. Perez and she received a colostomy for decompression of the obstruction, and on August 16, 2017 she had reversal of her colostomy. She started treatment with Zejula, but she could not tolerate that treatment, so the patient started after that on chemotherapy with gemcitabine which is held for her small bowel obstruction. I will continue to hold her gemcitabine now until the patient will recover completely after this episode of small bowel obstruction, which was treated successfully with conservative measures with bowel rest. Patient showed response to the current gemcitabine therapy and her CA-125 dropped from 149 to 110. I am planning to see her within a week or two in the office after she will go home to resume her chemotherapy by that time. Patient is agreeable with the plan of management. 2. Small bowel obstruction treated successfully with bowel rest. Patient is under the care of Dr. Perez. PLAN 1. Continue to hold the chemotherapy at the moment. 2. Patient to return within two weeks to the office with CBC, chem panel, CA- 125, and we will decide about further chemotherapy at that time. 3. Patient will contact us for any new concerns or complaints. MTDD
[2017-11-30 02:58] VITALS: BP 108/63
--- NOTE | 2017-11-30 07:25 | General Surgery Progress Note ---
Subjective Progress Notes Subjective No complaints this morning. No N/V, passing flatus and stools. Tolerating clear diet. Physical Exam Vital Signs Date Time Temp Pulse Resp B/P (MAP) Pulse Ox O2 Delivery O2 Flow Rate FiO2 11/30/17 02:58 97.1 72 16 108/63 (78) 90 Room Air General Appearance: Alert, Awake, No Acute Distress, Afebrile GI: Soft and Non-Tender Extremities: Warm, Perfused Result Diagram: 11/29/17 0530 11/29/17 0530 Assessment and Plan Problems: (1) Small bowel obstruction Status: Acute Assessment & Plan: 11/27/17: She seems to be doing pretty good at the moment. Her KUB is consistent with a bowel obstruction but does not really look much worse then her last KUB last week. We'll continue bowel rest. She is not nauseated or vomiting at the moment so we'll hold off on an NG tube. We'll repeat a KUB in the morning and will likely get a small bowel follow-through with water soluble contrast tomorrow. We'll again attempt conservative management but further management based on the studies to be completed tomorrow. We will have her on IV fluids with potassium in them and will use Lovenox for DVT prophylaxis and PPI for GI prophylaxis. She seems agreeable with this plan. 11/28/17: Doing well. KUB improved but still with some dilated loops of small intestines. Will get SBFT with water-soluble contrast today. 11/29/17: Doing better. SBFT reveals contrast going rapidly into colon. KUB looks better this morning. Will continue clear diet this morning since she hasn 't yet had much and will advance later today if she tolerates clears today. 11/30/17: Doing well. Will try regular diet today and if she tolerates this then will plan on home tomorrow. (2) Pleural effusion, left Status: Acute Assessment & Plan: This seems to be better then even last week after having thoracentesis performed by Dr. Bruno. It does not seem to be reaccumulating at this time. Condition Stable. Time Spent: < 30 min Exam Sepsis Risk: No Definite Risk ROXANA MONTANEZ MD Nov 30, 2017 07:25
[2017-11-30] MEDS: ENOXAPARIN 40 MG/0.4ML SYR SC SCH (09:22)
[2017-11-30 12:20] VITALS: BP 106/57
--- NOTE | 2017-11-30 13:46 | Medical Nutrition Therapy ---
Nutrition Anthropometrics Height (Inches): 66.00 Height (Calculated Centimeters: 167.542095 Weight (Pounds): 121 Weight (Calculated Kilograms): 55.168 BMI Calculated: 19.53 Francisco Nutrition Score: Adequate Francisco Nutrition Risk Score: 19 Dietary Referral Nutrition Risk Factors: Unplanned Loss >10lbs Nutrition Risk Comment: Physical Findings Physical Appearance: Normal 19.6 Skin Appearance Skin Appearance: Edema Edema Location Modifier: Edema Location: Type of Edema: Degree of Edema: Gastrointestinal Symptoms GI Symtoms: Nausea Tube Present: Bowel Sounds: Recent Bowel Pattern: Stool Characteristics: Nutritional Diagnosis Nutritional Risk Acuity 1: GI Obstruction Nutritional Risk Acuity 3: Weight Loss Nutritional Risk Acuity 4: %IBW 90-100% Past Medical History: 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, Colostomy, transverse colonic bowel obstruction, colon resection Nutritional Acuity: 1-High Nutrition Diagnosis: Altered GI Function Nutrition Etiology: Physiological Causes Nutrition Problem/Etiology/Sym: Altered GI function r/t small bowel obstruction AEB abd xray and lack of BM's/flatus Energy Requirement: 1460 (Miff[place] St Jeor) Protein Requirement: 66 (1.2 g/kg) Fluid Requirement: 1650 Diet Type: Diet as Tolerated REBEKAH/REG Nutrition Intervention: Cont diet as ordered, Encourage intake Diet Comment To RSA: PLEASE OFFER NUTR SUPPLEMENT Nutrition Monitoring & Eval RD Patient Assessment Time: [address] Assessment Type: RD Re-Assessment Patient Nutrition Acuity: 1-High Follow Up Date: Dec 02, 2017 Nutritional Comment: 11/28 Pt admitted for SBO. Pt was just recently discharged 11/23 after another SBO. Pt put on bowel rest/NPO to see if it resolves again. Notable labs H/H low, Na 136, Cr 0.5, and Ca 8. Pt has lost 5 lbs since 11/20, which is a 3.6% loss in a week. Will continue to monitor as diet advances. 11/29 Pt advanced to clear liquid diet. No flatus/BM's but abd xray is improving. Will offer ensure clear. Notable labs include low H/H, Na 135, and Cr 0.5. Will continue to encourage intake of clear liquids and monitor as diet progresses. 11/30 Pt now passing flatus and stools. Diet upgraded to REBEKAH. Pt had 75% of reg portion at one meal. Notable labs include low H/H, Na 135, Cr 0.5, and Ca 8.1. If tolerating regular diet, with D/C tomorrow per MD note. Will continue to encourage intake, offer nutr supplement, and monitor. YINA BAIG Nov 30, 2017 11:19
[2017-11-30 15:08] VITALS: BP 96/51
[2017-11-30 18:35] VITALS: BP 111/58
[2017-11-30] MEDS ORDERED: HEPARIN FLSH (PORT) 500 UN/5ML IVP PRN (20:45)
[2017-11-30 23:15] VITALS: BP 100/49
[2017-12-01 03:17] VITALS: BP 105/56
[2017-12-01 07:03] VITALS: BP 109/46
[2017-12-01] MEDS: ENOXAPARIN 40 MG/0.4ML SYR SC SCH (08:31)
--- NOTE | 2017-12-01 10:07 | Short(Outpt) Discharge Summary ---
ROXANA MONTANEZ MD 11/30/17 1831: Discharge Summary Reason for Hosp/Final Diag: (1) Small bowel obstruction Status: Acute Hospital Course & Plan: 11/27/17: She seems to be doing pretty good at the moment. Her KUB is consistent with a bowel obstruction but does not really look much worse then her last KUB last week. We'll continue bowel rest. She is not nauseated or vomiting at the moment so we'll hold off on an NG tube. We'll repeat a KUB in the morning and will likely get a small bowel follow-through with water soluble contrast tomorrow. We'll again attempt conservative management but further management based on the studies to be completed tomorrow. We will have her on IV fluids with potassium in them and will use Lovenox for DVT prophylaxis and PPI for GI prophylaxis. She seems agreeable with this plan. 11/28/17: Doing well. KUB improved but still with some dilated loops of small intestines. Will get SBFT with water-soluble contrast today. 11/29/17: Doing better. SBFT reveals contrast going rapidly into colon. KUB looks better this morning. Will continue clear diet this morning since she hasn 't yet had much and will advance later today if she tolerates clears today. 11/30/17: Doing well. Will try regular diet today and if she tolerates this then will plan on home tomorrow. (2) Pleural effusion, left Status: Acute Hospital Course & Plan: This seems to be better then even last week after having thoracentesis performed by Dr. Bruno. It does not seem to be reaccumulating at this time. Departure Discharge to: Home, Self Care Discharge Instructions Home Meds Reported Medications Cyanocobalamin (Vitamin B-12) (B-12) 500 Mcg Tab.rapdis, 50 MCG PO DAILY 11/20/17 Mu-Vits-Min Th/Lycopene/Lutein (CENTRUM SILVER TABLET) 1 Each Tablet, 1 EACH PO DAILY 11/20/17 Discontinued Reported Medications Mv,Ca,Min/Iron Fum/Fa/Vit K (MULTI FOR HER TABLET) 1 Each Tablet, 1 EACH PO DAILY 11/20/17 Folic Acid (FOLIC ACID) 1 Mg Tablet, 1 MG PO QDAY, TAB 11/20/17 Potassium Chloride (POTASSIUM CHLORIDE) 20 Meq Tab.er.prt, 20 MEQ PO BIDBS 11/20/17 Follow up Referrals: General Surgery - 12/07/17 @ Surgery, General with Roxana Montanez Md You have a follow up appointment scheduled with Dr. Montanez on 12/07/17, at 12:00pm. Diet: Regular Activity: As Tolerated LIZ WALLACE MD 12/01/17 1007: Discharge Summary Reason for Hosp/Final Diag: (1) Small bowel obstruction Status: Acute Hospital Course & Plan: 11/27/17: She seems to be doing pretty good at the moment. Her KUB is consistent with a bowel obstruction but does not really look much worse then her last KUB last week. We'll continue bowel rest. She is not nauseated or vomiting at the moment so we'll hold off on an NG tube. We'll repeat a KUB in the morning and will likely get a small bowel follow-through with water soluble contrast tomorrow. We'll again attempt conservative management but further management based on the studies to be completed tomorrow. We will have her on IV fluids with potassium in them and will use Lovenox for DVT prophylaxis and PPI for GI prophylaxis. She seems agreeable with this plan. 11/28/17: Doing well. KUB improved but still with some dilated loops of small intestines. Will get SBFT with water-soluble contrast today. 11/29/17: Doing better. SBFT reveals contrast going rapidly into colon. KUB looks better this morning. Will continue clear diet this morning since she hasn 't yet had much and will advance later today if she tolerates clears today. 11/30/17: Doing well. Will try regular diet today and if she tolerates this then will plan on home tomorrow. 12/01/2017 stable progress. Tolerated regular diet with +BM. No new complaints or concerns this am. DC teaching done. Will see Dr Montanez 2017 with CXR before appt, orders given to pt. (2) Ovarian cancer Status: Chronic Departure Discharge to: Home Discharge Instructions Home Meds Reported Medications Cyanocobalamin (Vitamin B-12) (B-12) 500 Mcg Tab.rapdis, 50 MCG PO DAILY 11/20/17 Mu-Vits-Min Th/Lycopene/Lutein (CENTRUM SILVER TABLET) 1 Each Tablet, 1 EACH PO DAILY 11/20/17 Discontinued Reported Medications Mv,Ca,Min/Iron Fum/Fa/Vit K (MULTI FOR HER TABLET) 1 Each Tablet, 1 EACH PO DAILY 11/20/17 Folic Acid (FOLIC ACID) 1 Mg Tablet, 1 MG PO QDAY, TAB 11/20/17 Potassium Chloride (POTASSIUM CHLORIDE) 20 Meq Tab.er.prt, 20 MEQ PO BIDBS 11/20/17 Follow up Referrals: General Surgery - 12/07/17 @ Surgery, General with Roxana Montanez Md You have a follow up appointment scheduled with Dr. Montanez on 12/07/17, at 12:00pm. Diet: Regular Activity: As Tolerated ROXANA MONTANEZ MD Nov 30, 2017 18:31 LIZ WALLACE MD Dec 01, 2017 10:07
== END 2017-12-01 10:15 | disposition home or self-care (01) | DRG 389 ==
LOC: MED 15:52
PROVIDERS: ADMIT Surgery; ATTEND Surgery
DX: K56.600 Partial intestinal obstruction, unspecified as to cause (principal); J90 Pleural effusion, not elsewhere classified; C78.6 Secondary malignant neoplasm of retroperitoneum and peritoneum; Z88.8 Allergy status to other drugs, medicaments and biological substances; Z90.710 Acquired absence of both cervix and uterus; Z92.21 Personal history of antineoplastic chemotherapy; Z85.068 Personal history of other malignant neoplasm of small intestine; Z85.42 Personal history of malignant neoplasm of other parts of uterus; Z85.43 Personal history of malignant neoplasm of ovary
CPT/HCPCS: 71045; 74018; 74250; 82310; 82374; 82435; 82565; 82947; 84132; 84295; 84520; 85025; C9113; J1642; J1650; J2405; J3480

== ENCOUNTER 2017-12-06 13:00 | Outpatient (RCR) | payer BC ==
[2017-09-13 14:00] VITALS: BP 122/62
[2017-09-13] MEDS: NS(*) 0.9% 1000 ML BAG 1,000 ML IV PRN ×2 (14:10→15:50)
[2017-09-13 17:15] VITALS: BP 125/64
--- NOTE | 2017-09-17 21:01 | ONCOLOGY FOLLOW UP NOTE ---
EVENT DATE: September 14, 2017 The patient has been seen while she is taking IV fluid for dehydration because of her severe stomatitis from the use of Zejula. After talking to the patient and her , she agreed to stop Zejula and start chemotherapy with gemcitabine, as she wishes not to lose her hair again as she lost it twice before, and gemcitabine is a good drug for hair loss as it is not one of its side effects. To give her time for her stomatitis to resolve, I plan to see her in two weeks with CBC, chem panel and CA 125, and start her chemotherapy with gemcitabine at that time. MTDD
[2017-09-26 12:00] VITALS: BP 120/64
[2017-09-26 12:17] LABS: PLATELET COUNT, AUTOMATED 357 K/uL (150-450)
--- NOTE | 2017-09-26 13:25 | ONC Progress Note - NP.Halsey ---
Patient History Date of Service Sep 26, 2017 Reason For Visit/HPI For education regarding Gemzar chemotherapy for her recurrent ovarian cancer. Patient previously was on oral medication with is a Zejula and experienced significant side effects so it was discontinued. Over the last 2 weeks patient has slowly been recovering and feels better today. She is able to eat and no longer has mouth sores. She is walking and trying to increase her strength. She does have an occasional cough but is using in an spirometer and deep breathing currently. She denies any fever or chills, no diarrhea or constipation. Her recent surgical site is completely healed. Patient feels that she is ready to start chemotherapy Problem List (1) Recurrent carcinoma of left ovary Oncology History The patient is a 61-year-old woman who presented in February 2010 with vaginal spotting. On March 25, 2010 pelvic ultrasound showed markedly enlarged ovaries bilaterally with cystic areas with thick septation. CA-125 was 632. On March CT of abdomen and pelvis showed large septated cystic mass encompassing both ovaries. On March 30, 2016 a staging laparotomy with total abdominal hysterectomy and bilateral salpingo-oophorectomy with surgical staging showed bilateral 10 cm to 12 cm ovarian masses attached to the posterior uterus with 5 mm metastatic lesion on the posterior cul-de-sac. Pathology was positive for left ovarian 23.5 cm poorly differentiated endometrioid adenocarcinoma with 10 cm right ovarian tumor with poorly differentiated endometrioid adenocarcinoma with capsular rupture involving the left and right ovaries and right fallopian tube with implant on the posterior surface on the uterus and the cul-de-sac. Postoperative course was complicated by small bowel obstruction resolved with conservative therapy. CA-125 postoperatively was 46. Pelvic washings were also negative. One right pelvic lymph node was negative. Four left pelvic lymph nodes were negative. Paraaortic lymph node was also negative. Other four regional lymph nodes were also negative, so the lymph nodes were all negative. The patient's tumor was staged as stage IIB (T2b N0 M0) FIGO grade 3. The patient received six cycles of carboplatin and Paclitaxel between June 17, 2010 through October 06, 2010. The patient had hernia repair on May 28, 2015 followed by fluid accumulation and firmness in the lower abdomen and erythema of the skin of the lower abdomen, treated for possible cellulitis with multiple antibiotics without improvement. She also had persistent nausea and vomiting without colic abdominal pain. CT of the abdomen and pelvis with contrast done on October 23, 2015 revealed abnormal soft tissue thickening and inflammatory change along the hernia mesh with proximal small bowel dilatation with small bowel appearing partially tapered underlying the hernia mesh with small bowel multiple air fluid levels. There was decompression of the rest of the small bowel and colon. There were slightly enlarged mesenteric nodes. There was also some nodularity along the omentum and the mesentery, and a new mass invading into the left pelvic sidewall, 6.3 cm in size. PET-CT scan done on November 18, 2015 revealed the mass was in the left hemipelvis anterior to the iliacus muscle measuring 5 x 6 cm with SUV value of 19.3, peritoneal metastatic disease anteriorly extending to the right and left about 10 cm in the cephalocaudad extent and 1 cm in thickness, SUV value approaches 8.6. The patient received one cycle of carboplatin and Abraxane on November 17, 2015, but her CA-125 alessandro from 145 to 227 and her small bowel obstruction got worse, so the patient after that started treatment with FOLFIRI and Avastin was not given at that time for fear of the small bowel obstruction and perforation. She received her first cycle of FOLFIRI on December 08, 2015. She received her second cycle of chemotherapy on December with FOLFIRI, and she showed a CA-125 response. She received a third cycle of FOLFIRI on January 05, 2016 and Avastin added to her fourth cycle on January 19, 2016. The patient received a total of sixteen cycles of Avastin and FOLFIRI, completed in June 2016. The patient started maintenance chemotherapy with Avastin, 5-FU and leucovorin on September 26, 2016 and completed 14 cycles unfortunately her tumor markers were elevating. CEA 125 was elevated at 45. Patient then developed a small bowel obstruction and this was followed by surgical procedure with colostomy and then reconnection. A shunt was on oral chemotherapy with Zejula but had significant side effects so this was discontinued. Patient will start single agent Gemzar day 1 and day 8 every 21 day cycle starting on 09/27/2017. 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 Alcohol History She denies use Smoking History: No Smoking Status: Never Smoker Exposure to Second Hand Smoke?: No Medications and Allergies Active Scripts Potassium Chloride (POTASSIUM CHLORIDE) 20 Meq Tab.er.prt, 1 TAB PO BIDBS, #30 TAB 0 Refills Prov:ROXANA MONTANEZ MD 08/22/17 Niraparib Tosylate (Zejula) 100 Mg Capsule, 300 MG PO DAILY, #90 CAP Prov:HUGO MORROW PULVERIZER-BC, ONC 08/20/17 Reported Medications Niraparib Tosylate (Zejula) 100 Mg Capsule, 100 MG PO DAILY 09/04/17 Mu-Vits-Min Th/Lycopene/Lutein (CENTRUM SILVER TABLET) 1 Each Tablet, 1 EACH PO QDAY 08/29/17 Folic Acid (FOLIC ACID) 1 Mg Tablet, 1 MG PO QDAY, TAB 06/15/17 Cyanocobalamin (Vitamin B-12) (VITAMIN B-12) 50 Mcg Tablet, 50 MCG PO DAILY 04/07/16 Mv,Ca,Min/Iron Fum/Fa/Vit K (MULTI FOR HER TABLET) 1 Each Tablet, 1 EACH PO 04/17/13 Allergies: Coded Allergies: No Known Drug Allergies (Verified , 05/26/15) Review of System/Physical Exam Review of Systems All Systems Reviewed/Normal: Yes, Except as Noted Hematologic: Positive for Fatigue Physical Exam Vital Signs Temperature: 97.3 Pulse: 121 BP Systolic: 120 BP Diastolic: 64 Respiratory Rate: 17 O2 SAT: 92 O2 Delivery: Room Air Height (inches) 65.00 Weight lb: 126 Weight oz: 8.0 Weight Kg (Wan): 57.694006 Pain: 0 ECOG Score: 1 General: Stable, Well Developed, Well Nourished, Not In Acute Distress Psychiatric: Mood appears normal, Affect appears normal Other Remainder of the exam was deferred today for education regarding chemotherapy with Gemzar Chemo Education Chemotherapy Education: Patient is seen today for education regarding chemotherapy with Gemzar for her recurrent ovarian cancer The treatment schedule and associated appointments were discussed and reviewed. A print out was given to the patient. The intent for treatment is maintenance therapy. Consent for treatment was completed prior to receiving treatment. Patient has previously been seen for education for prior chemotherapies. Review of side effects to include nausea and vomiting, diarrhea and constipation, safety features were completed today. Discussion regarding lab results and how to monitor white cell count, platelet level were discussed. Plan of care as far as ongoing treatment was discussed. Patient will continue treatment until disease progression or poor toleration. Patient is currently trying a higher protein diet and some mild exercise for nutrition and to decrease fatigue. Safety measures were reviewed again today regarding prevention of teratogenic side effects for that 72 hour period posttreatment. This includes good hand washing, double flushing, and avoiding sexual intercourse or use of a condom. Patient and spouse verbalized understanding. Patient currently has anti-emetic therapy at home. The above information will be reviewed with the patient and spouse as needed. Diagnostic Studies Diagnostic Studies Laboratory Laboratory Tests 09/26/17 12:00 Laboratory Tests 09/26/17 12:00: White Blood Count 7.3, Red Blood Count 3.18, Hemoglobin 10.1, Hematocrit 31.0, Mean Corpuscular Volume 97.6, Mean Corpuscular Hemoglobin 31.9, Mean Corpuscular Hemoglobin Concent 32.7, Red Cell Distribution Width 22.8, Platelet Count 357, Mean Platelet Volume 8.8, Neutrophils (%) (Auto) , Lymphocytes (%) ( Auto) , Monocytes (%) (Auto) , Eosinophils (%) (Auto) , Basophils (%) (Auto) , Nucleated RBC Relative Count (auto) , Neutrophils # (Auto) , Lymphocytes # (Auto ) , Monocytes # (Auto) , Eosinophils # (Auto) , Basophils # (Auto) , Nucleated RBC Absolute Count (auto) , Neutrophils % (Manual) 64, Lymphocytes % (Manual) 15 , Atypical Lymphocytes % 8, Monocytes % (Manual) 9, Eosinophils % (Manual) 2, Basophils % (Manual) 1, Myelocytes % 1, Polychromasia 2+, Anisocytosis 3+, Microcytosis 1+, Macrocytosis 2+, Peripheral Blood Smear Yes, Sodium Level 141, Potassium Level 4.2, Chloride Level 105, Carbon Dioxide Level 24, Blood Urea Nitrogen 11, Creatinine 0.50, Glomerular Filtration Rate Calc > 60.0, Random Glucose 107, Calcium Level 9.2, Total Bilirubin 0.4, Aspartate Amino Transf (AST /SGOT) 21, Alanine Aminotransferase (ALT/SGPT) 24, Alkaline Phosphatase 119, Total Protein 7.6, Albumin 3.7 Assessment and Plan Assessment & Plan 1. Recurrent ovarian carcinoma. This is her second recurrence. She had a recurrence with partial small bowel obstruction October 2015 and patient received one cycle of carboplatin and Abraxane without improvement with rising of her CA-125 from 144 to 227 so the patient after that received treatment with FOLFIRI started December 08, 2015 and Avastin was added to her treatment after her bowel obstruction resolved. She received 16 cycles of FOLFIRI. CA-125 dropped from 227 to 23. She had a PET/CT scan on September 08, 2016 which was negative. Patient started maintenance chemotherapy with Avastin, 5-FU and leucovorin October 26, 2016, and she finished 14 cycles. She was then noted to have a palpable mass asked below the umbilicus to the right side. CT scan showed a new 2.3 x 2.4 cm soft tissue nodularity in the posterior right pelvis. Patient had a PET CT scan and discussed with Dr. Bruner patient to start treatment with Avastin and Alimta. Patient was given vitamin B12, 1000 mcg one -week prior as a preparation for her treatment with Alimta together with folic acid 1 mg daily and a prescription of Decadron 4 mg twice daily for three days to start the day before chemotherapy. Patient then developed diarrhea up to 15 loose stools a day and ongoing vomiting and nausea. Patient was treated surgically for small bowel obstruction and reversal of colostomy. Patient started treatment with Zejula after release from the hospital. Labs have been monitored weekly and remain relatively stable. Patient has developed oral mouth sores and oral medicine was discontinued. Patient will start Gemzar given on day 1 and 8 every 21 days tomorrow on 09/27/2017. I will add Aloxi as an anti -emetic premed and patient will have CA 125 every 21 days for monitoring. She will complete weekly CBC and CMP. . 2. Chemotherapy-induced thrombocytopenia. We will continue to monitor, these remain relatively stable today 3. Dehydration and malnutrition. Patient will be hydrated with 500 mL with each treatment. PLAN 1. Gemcitabine cycle 1 day 1 tomorrow followed by day 8 next week. 2 Patient will follow with provider with each cycle. 3. Consent was signed for chemotherapy and education was completed today. I personally spent a total of 25 minutes [id number] with patient and spouse for plan of care HUGO MORROW PULVERIZER-BC, ONC Sep 26, 2017 13:25
[2017-09-27] MEDS: DEXAMETHASONE SOD PHOS 10MG/ML IVP PRN (12:50)
[2017-09-27] MEDS: PALONOSETRON 0.25 MG/5 ML VIAL IVP PRN (12:50)
[2017-09-27] MEDS: LIDOCAINE/SOD BICARB 8.4% SYR ID PRN (12:57)
[2017-09-27] MEDS: NS(*) 0.9% 500 ML BAG 500 ML IV PRN (12:57)
[2017-09-27] MEDS: HEPARIN FLSH (PORT) 500 UN/5ML IVP PRN (12:57)
[2017-09-27 12:58] VITALS: BP 108/71
[2017-09-27 15:04] VITALS: BP 110/64
[2017-10-04 12:11] VITALS: BP 122/38
[2017-10-04 12:37] LABS: PLATELET COUNT, AUTOMATED 124 K/uL (150-450)
[2017-10-04] MEDS: NS(*) 0.9% 500 ML BAG 500 ML IV PRN (13:04)
[2017-10-04] MEDS: LIDOCAINE/SOD BICARB 8.4% SYR ID PRN (13:04)
[2017-10-04] MEDS: DEXAMETHASONE SOD PHOS 10MG/ML IVP PRN (13:05)
[2017-10-04] MEDS: PALONOSETRON 0.25 MG/5 ML VIAL IVP PRN (13:05)
--- NOTE | 2017-10-04 13:31 | ONC Progress Note - NP.Halsey ---
Patient History Date of Service Oct 04, 2017 Reason For Visit/HPI Patient is seen with her in the clinic today for Gemzar cycle 1 day 8 of treatment. Patient was started on treatment last week and denies any side effects such as nausea or vomiting, diarrhea or constipation, no fever or chills. Patient's baseline CEA 125 was 148 prior to starting treatment. Patient shares that she is able to eat better and has gained 5 pounds. Part of this is because her mouth sores have totally resolved. She is feeling stronger but still continues to have weakness and fatigue. 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 On March 25, 2010 pelvic ultrasound showed markedly enlarged ovaries bilaterally with cystic areas with thick septation. CA-125 was 632. On March CT of abdomen and pelvis showed large septated cystic mass encompassing both ovaries. On March 30, 2016 a staging laparotomy with total abdominal hysterectomy and bilateral salpingo-oophorectomy with surgical staging showed bilateral 10 cm to 12 cm ovarian masses attached to the posterior uterus with 5 mm metastatic lesion on the posterior cul-de-sac. Pathology was positive for left ovarian 23.5 cm poorly differentiated endometrioid adenocarcinoma with 10 cm right ovarian tumor with poorly differentiated endometrioid adenocarcinoma with capsular rupture involving the left and right ovaries and right fallopian tube with implant on the posterior surface on the uterus and the cul-de-sac. Postoperative course was complicated by small bowel obstruction resolved with conservative therapy. CA-125 postoperatively was 46. Pelvic washings were also negative. One right pelvic lymph node was negative. Four left pelvic lymph nodes were negative. Paraaortic lymph node was also negative. Other four regional lymph nodes were also negative, so the lymph nodes were all negative. The patient's tumor was staged as stage IIB (T2b N0 M0) FIGO grade 3. The patient received six cycles of carboplatin and Paclitaxel between June 17, 2010 through October 06, 2010. The patient had hernia repair on May 28, 2015 followed by fluid accumulation and firmness in the lower abdomen and erythema of the skin of the lower abdomen, treated for possible cellulitis with multiple antibiotics without improvement. She also had persistent nausea and vomiting without colic abdominal pain. CT of the abdomen and pelvis with contrast done on October 23, 2015 revealed abnormal soft tissue thickening and inflammatory change along the hernia mesh with proximal small bowel dilatation with small bowel appearing partially tapered underlying the hernia mesh with small bowel multiple air fluid levels. There was decompression of the rest of the small bowel and colon. There were slightly enlarged mesenteric nodes. There was also some nodularity along the omentum and the mesentery, and a new mass invading into the left pelvic sidewall, 6.3 cm in size. PET-CT scan done on November 18, 2015 revealed the mass was in the left hemipelvis anterior to the iliacus muscle measuring 5 x 6 cm with SUV value of 19.3, peritoneal metastatic disease anteriorly extending to the right and left about 10 cm in the cephalocaudad extent and 1 cm in thickness, SUV value approaches 8.6. The patient received one cycle of carboplatin and Abraxane on November 17, 2015, but her CA-125 alessandro from 145 to 227 and her small bowel obstruction got worse, so the patient after that started treatment with FOLFIRI and Avastin was not given at that time for fear of the small bowel obstruction and perforation. She received her first cycle of FOLFIRI on December 08, 2015. She received her second cycle of chemotherapy on December with FOLFIRI, and she showed a CA-125 response. She received a third cycle of FOLFIRI on January 05, 2016 and Avastin added to her fourth cycle on January 19, 2016. The patient received a total of sixteen cycles of Avastin and FOLFIRI, completed in June 2016. The patient started maintenance chemotherapy with Avastin, 5-FU and leucovorin on September 26, 2016 and completed 14 cycles unfortunately her tumor markers were elevating. CEA 125 was elevated at 45. Patient then developed a small bowel obstruction and this was followed by surgical procedure with colostomy and then reconnection. A shunt was on oral chemotherapy with Zejula but had significant side effects so this was discontinued. Patient will start single agent Gemzar day 1 and day 8 every 21 day cycle starting on 09/27/2017. 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 Alcohol History She denies use Smoking History: No Smoking Status: Never Smoker Exposure to Second Hand Smoke?: No Medications and Allergies Active Scripts Potassium Chloride (POTASSIUM CHLORIDE) 20 Meq Tab.er.prt, 1 TAB PO BIDBS, #30 TAB 0 Refills Prov:ROXANA MONTANEZ MD 08/22/17 Niraparib Tosylate (Zejula) 100 Mg Capsule, 300 MG PO DAILY, #90 CAP Prov:CRISTHIANHUGO J LINER CHECKER-BC, ONC 08/20/17 Reported Medications Niraparib Tosylate (Zejula) 100 Mg Capsule, 100 MG PO DAILY 09/04/17 Mu-Vits-Min Th/Lycopene/Lutein (CENTRUM SILVER TABLET) 1 Each Tablet, 1 EACH PO QDAY 08/29/17 Folic Acid (FOLIC ACID) 1 Mg Tablet, 1 MG PO QDAY, TAB 06/15/17 Cyanocobalamin (Vitamin B-12) (VITAMIN B-12) 50 Mcg Tablet, 50 MCG PO DAILY 04/07/16 Mv,Ca,Min/Iron Fum/Fa/Vit K (MULTI FOR HER TABLET) 1 Each Tablet, 1 EACH PO 04/17/13 Allergies: Coded Allergies: No Known Drug Allergies (Verified , 05/26/15) Review of System/Physical Exam Review of Systems All Systems Reviewed/Normal: Yes, Except as Noted Hematologic: Positive for Fatigue, Positive for Weakness Physical Exam Vital Signs Temperature: 97.4 Pulse: 108 BP Systolic: 122 BP Diastolic: 38 Respiratory Rate: 14 O2 SAT: 94 O2 Delivery: Room Air Height (inches) 65.00 Weight lb: Weight oz: 8.0 Weight Kg (Wan): Pain: 0 ECOG Score: 1 General: Stable, Not Well Nourished (patient is still slightly malnourished although this is improving), Not In Acute Distress HEENT: No Conjunctivitis, No Mucositis, No Oral Thrush Neck: Supple Lungs: Clear to Auscultation Heart: Regular Rate, Regular Rhythm Abdomen: Soft and Nontender, No Hepatosplenomegaly, No Masses, Other (bowel sounds are active) Extremities: No Cyanosis, No Clubbing Lymphadenopathy: No Cervical Psychiatric: Mood appears normal, Affect appears normal Skin: No Skin Rashes, No Bruising, No Purpura Diagnostic Studies Diagnostic Studies Laboratory Laboratory Tests 10/04/17 12:23 Laboratory Tests 09/26/17 12:00: Neutrophils % (Manual) 64, Lymphocytes % (Manual) 15, Atypical Lymphocytes % 8, Monocytes % (Manual) 9, Eosinophils % (Manual) 2, Basophils % (Manual) 1, Myelocytes % 1, Polychromasia 2+, Anisocytosis 3+, Microcytosis 1+, Macrocytosis 2+, CA 125 Antigen 149 10/04/17 12:23: White Blood Count 6.0, Red Blood Count 2.84, Hemoglobin 9.1, Hematocrit 27.6, Mean Corpuscular Volume 97.1, Mean Corpuscular Hemoglobin 31.9, Mean Corpuscular Hemoglobin Concent 32.8, Red Cell Distribution Width 23.5, Platelet Count 124, Mean Platelet Volume 8.3, Neutrophils (%) (Auto) 48.2, Lymphocytes (% ) (Auto) 37.3, Monocytes (%) (Auto) 12.8, Eosinophils (%) (Auto) 1.2, Basophils (%) (Auto) 0.5, Nucleated RBC Relative Count (auto) 0.2, Neutrophils # (Auto) 2.9, Lymphocytes # (Auto) 2.2, Monocytes # (Auto) 0.8, Eosinophils # (Auto) 0.1 , Basophils # (Auto) 0.0, Nucleated RBC Absolute Count (auto) 0.01, Peripheral Blood Smear Yes, Sodium Level 139, Potassium Level 4.1, Chloride Level 105, Carbon Dioxide Level 26, Blood Urea Nitrogen 11, Creatinine 0.40, Glomerular Filtration Rate Calc > 60.0, Random Glucose 90, Calcium Level 8.8, Total Bilirubin 0.5, Aspartate Amino Transf (AST/SGOT) 18, Alanine Aminotransferase ( ALT/SGPT) 26, Alkaline Phosphatase 108, Total Protein 6.9, Albumin 3.3 Assessment and Plan Assessment & Plan 1. Recurrent ovarian carcinoma. This is her second recurrence. She had a recurrence with partial small bowel obstruction October 2015 and patient received one cycle of carboplatin and Abraxane without improvement with rising of her CA-125 from 144 to 227 so the patient after that received treatment with FOLFIRI started December 08, 2015 and Avastin was added to her treatment after her bowel obstruction resolved. She received 16 cycles of FOLFIRI. CA-125 dropped from 227 to 23. She had a PET/CT scan on September 08, 2016 which was negative. Patient started maintenance chemotherapy with Avastin, 5-FU and leucovorin October 26, 2016, and she finished 14 cycles. She was then noted to have a palpable mass asked below the umbilicus to the right side. CT scan showed a new 2.3 x 2.4 cm soft tissue nodularity in the posterior right pelvis. Patient had a PET CT scan and discussed with Dr. Bruner patient to start treatment with Avastin and Alimta. Patient was given vitamin B12, 1000 mcg one -week prior as a preparation for her treatment with Alimta together with folic acid 1 mg daily and a prescription of Decadron 4 mg twice daily for three days to start the day before chemotherapy. Patient then developed diarrhea up to 15 loose stools a day and ongoing vomiting and nausea. Patient was treated surgically for small bowel obstruction and reversal of colostomy. Patient started treatment with Zejula after release from the hospital. Labs have been monitored weekly and remain relatively stable. Patient started Gemzar given on day 1 and 8 every 21 days tomorrow on 09/27/2017. She will receive cycle 1 day 8 of treatment today. I will add Aloxi as an anti-emetic premed and patient will have CA 125 every 21 days for monitoring. CA 125 baseline was 149. She will complete weekly CBC and CMP. 2. Chemotherapy-induced thrombocytopenia. We will continue to monitor 3. Dehydration and malnutrition. Patient will be hydrated with 500 mL with each treatment. 4. Anemia secondary to chemotherapy. Patient's hemoglobin is currently 9.1. We' ll continue to monitor and will transfuse if hemoglobin is below 8. PLAN 1. Gemzar cycle 1 day 8 today. 2 Patient will follow with provider with each cycle. CA 125 will be drawn with each cycle 3. Patient will be hydrated with 500 mils with each treatment I personally spent a total of 20 minutes [id number] with patient and spouse for plan of care HUGO MORROW LINER CHECKER-BC, ONC Oct 04, 2017 13:31
[2017-10-18] MEDS: PALONOSETRON 0.25 MG/5 ML VIAL IVP PRN (13:25)
[2017-10-18] MEDS: NS(*) 0.9% 500 ML BAG 500 ML IV PRN (13:25)
[2017-10-18] MEDS: DEXAMETHASONE SOD PHOS 10MG/ML IVP PRN (13:25)
[2017-10-18] MEDS: LIDOCAINE/SOD BICARB 8.4% SYR ID PRN (13:26)
[2017-10-18] MEDS: HEPARIN FLSH (PORT) 500 UN/5ML IVP PRN (13:26)
[2017-10-18 13:27] VITALS: BP 102/59
--- NOTE | 2017-10-18 14:14 | ONC Progress Note - NP.Halsey ---
Patient History Date of Service Oct 18, 2017 Reason For Visit/HPI Patient is seen with her in the clinic today for Gemzar cycle 2 day 1 of treatment. Overall patient is feeling very well and is getting stronger each day. She reports that her weight has increased and that she is able to tolerate food. Bowel source of totally resolved. She is able to walk longer distances and continues to exercise to increase strength. She hopes that she will be able to go back to work in November. The abdomen is completely healed. He denies any fever or chills, diarrhea or constipation. She is tolerating treatment without difficulty and minimal to no side effects. CA 125 is currently at 149 which remained stable. She has no pain. Oncology History The patient is a 61-year-old woman who presented in February 2010 with vaginal spotting. On March 25, 2010 pelvic ultrasound showed markedly enlarged ovaries bilaterally with cystic areas with thick septation. CA-125 was 632. On March CT of abdomen and pelvis showed large septated cystic mass encompassing both ovaries. On March 30, 2016 a staging laparotomy with total abdominal hysterectomy and bilateral salpingo-oophorectomy with surgical staging showed bilateral 10 cm to 12 cm ovarian masses attached to the posterior uterus with 5 mm metastatic lesion on the posterior cul-de-sac. Pathology was positive for left ovarian 23.5 cm poorly differentiated endometrioid adenocarcinoma with 10 cm right ovarian tumor with poorly differentiated endometrioid adenocarcinoma with capsular rupture involving the left and right ovaries and right fallopian tube with implant on the posterior surface on the uterus and the cul-de-sac. Postoperative course was complicated by small bowel obstruction resolved with conservative therapy. CA-125 postoperatively was 46. Pelvic washings were also negative. One right pelvic lymph node was negative. Four left pelvic lymph nodes were negative. Paraaortic lymph node was also negative. Other four regional lymph nodes were also negative, so the lymph nodes were all negative. The patient's tumor was staged as stage IIB (T2b N0 M0) FIGO grade 3. The patient received six cycles of carboplatin and Paclitaxel between June 17, 2010 through October 06, 2010. The patient had hernia repair on May 28, 2015 followed by fluid accumulation and firmness in the lower abdomen and erythema of the skin of the lower abdomen, treated for possible cellulitis with multiple antibiotics without improvement. She also had persistent nausea and vomiting without colic abdominal pain. CT of the abdomen and pelvis with contrast done on October 23, 2015 revealed abnormal soft tissue thickening and inflammatory change along the hernia mesh with proximal small bowel dilatation with small bowel appearing partially tapered underlying the hernia mesh with small bowel multiple air fluid levels. There was decompression of the rest of the small bowel and colon. There were slightly enlarged mesenteric nodes. There was also some nodularity along the omentum and the mesentery, and a new mass invading into the left pelvic sidewall, 6.3 cm in size. PET-CT scan done on November 18, 2015 revealed the mass was in the left hemipelvis anterior to the iliacus muscle measuring 5 x 6 cm with SUV value of 19.3, peritoneal metastatic disease anteriorly extending to the right and left about 10 cm in the cephalocaudad extent and 1 cm in thickness, SUV value approaches 8.6. The patient received one cycle of carboplatin and Abraxane on November 17, 2015, but her CA-125 alessandro from 145 to 227 and her small bowel obstruction got worse, so the patient after that started treatment with FOLFIRI and Avastin was not given at that time for fear of the small bowel obstruction and perforation. She received her first cycle of FOLFIRI on December 08, 2015. She received her second cycle of chemotherapy on December with FOLFIRI, and she showed a CA-125 response. She received a third cycle of FOLFIRI on January 05, 2016 and Avastin added to her fourth cycle on January 19, 2016. The patient received a total of sixteen cycles of Avastin and FOLFIRI, completed in June 2016. The patient started maintenance chemotherapy with Avastin, 5-FU and leucovorin on September 26, 2016 and completed 14 cycles unfortunately her tumor markers were elevating. CEA 125 was elevated at 45. Patient then developed a small bowel obstruction and this was followed by surgical procedure with colostomy and then reconnection. A shunt was on oral chemotherapy with Zejula but had significant side effects so this was discontinued. Patient will start single agent Gemzar day 1 and day 8 every 21 day cycle starting on 09/27/2017. We will continue to monitor CA 125 with each cycle. Baseline CA 125 was 149 and this remained stable. 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 Alcohol History She denies use Smoking History: No Smoking Status: Never Smoker Exposure to Second Hand Smoke?: No Medications and Allergies Active Scripts Potassium Chloride (POTASSIUM CHLORIDE) 20 Meq Tab.er.prt, 1 TAB PO BIDBS, #30 TAB 0 Refills Prov:ROXANA MONTANEZ MD 08/22/17 Niraparib Tosylate (Zejula) 100 Mg Capsule, 300 MG PO DAILY, #90 CAP Prov:HUGO MORROW SUBMARINE WORKER-BC, ONC 08/20/17 Reported Medications Niraparib Tosylate (Zejula) 100 Mg Capsule, 100 MG PO DAILY 09/04/17 Mu-Vits-Min Th/Lycopene/Lutein (CENTRUM SILVER TABLET) 1 Each Tablet, 1 EACH PO QDAY 08/29/17 Folic Acid (FOLIC ACID) 1 Mg Tablet, 1 MG PO QDAY, TAB 06/15/17 Cyanocobalamin (Vitamin B-12) (VITAMIN B-12) 50 Mcg Tablet, 50 MCG PO DAILY 04/07/16 Mv,Ca,Min/Iron Fum/Fa/Vit K (MULTI FOR HER TABLET) 1 Each Tablet, 1 EACH PO 04/17/13 Allergies: Coded Allergies: No Known Drug Allergies (Verified , 05/26/15) Review of System/Physical Exam Review of Systems All Systems Reviewed/Normal: Yes, Except as Noted Hematologic: Positive for Fatigue, Positive for Weakness (she is getting stronger) Physical Exam Vital Signs Temperature: 98.4 Pulse: 106 BP Systolic: 102 BP Diastolic: 59 Respiratory Rate: 16 O2 SAT: 92 O2 Delivery: Room Air Height (inches) 65.00 Weight lb: Weight oz: 8.0 Weight Kg (Wan): Pain: 0 ECOG Score: 1 General: Stable, Well Developed, Well Nourished, Not In Acute Distress HEENT: No Trauma, No Conjunctivitis, No Icterus, No Mucositis, No Oral Thrush Neck: Supple Lungs: Clear to Auscultation Heart: Regular Rate, Regular Rhythm, No Gallops Abdomen: Soft and Nontender, No Hepatosplenomegaly, No Masses, Other (bowel sounds are active) Extremities: No Cyanosis, No Clubbing, No Edema Lymphadenopathy: No Cervical Psychiatric: Mood appears normal, Affect appears normal Skin: No Skin Rashes, No Bruising, No Purpura Diagnostic Studies Diagnostic Studies Laboratory Laboratory Tests 10/18/17 12:30 Laboratory Tests 09/26/17 12:00: Neutrophils % (Manual) 64, Lymphocytes % (Manual) 15, Atypical Lymphocytes % 8, Monocytes % (Manual) 9, Eosinophils % (Manual) 2, Basophils % (Manual) 1, Myelocytes % 1, Polychromasia 2+, Anisocytosis 3+, Microcytosis 1+, Macrocytosis 2+ 10/04/17 12:23: Red Blood Count 2.84, Mean Corpuscular Volume 97.1, Mean Corpuscular Hemoglobin 31.9, Mean Corpuscular Hemoglobin Concent 32.8, Red Cell Distribution Width 23.5 , Mean Platelet Volume 8.3, Monocytes (%) (Auto) 12.8, Eosinophils (%) (Auto) 1.2, Basophils (%) (Auto) 0.5, Nucleated RBC Relative Count (auto) 0.2, Monocytes # (Auto) 0.8, Eosinophils # (Auto) 0.1, Basophils # (Auto) 0.0, Nucleated RBC Absolute Count (auto) 0.01, Peripheral Blood Smear Yes 10/18/17 12:30: White Blood Count 5.4, Hemoglobin 10.0, Hematocrit 30.7, Platelet Count 246, Neutrophils (%) (Auto) 57.8, Lymphocytes (%) (Auto) 29.3, Neutrophils # (Auto) 3.1, Lymphocytes # (Auto) 1.6, Sodium Level 141, Potassium Level 4.0, Chloride Level 107, Carbon Dioxide Level 25, Blood Urea Nitrogen 11, Creatinine 0.50, Glomerular Filtration Rate Calc > 60.0, Random Glucose 90, Calcium Level 8.7, Total Bilirubin 0.5, Aspartate Amino Transf (AST/SGOT) 15, Alanine Aminotransferase (ALT/SGPT) 27, Alkaline Phosphatase 99, Total Protein 6.8, Albumin 3.4 Assessment and Plan Assessment & Plan 1. Recurrent ovarian carcinoma. This is her second recurrence. She had a recurrence with partial small bowel obstruction October 2015 and patient received one cycle of carboplatin and Abraxane without improvement with rising of her CA-125 from 144 to 227 so the patient after that received treatment with FOLFIRI started December 08, 2015 and Avastin was added to her treatment after her bowel obstruction resolved. She received 16 cycles of FOLFIRI. CA-125 dropped from 227 to 23. She had a PET/CT scan on September 08, 2016 which was negative. Patient started maintenance chemotherapy with Avastin, 5-FU and leucovorin October 26, 2016, and she finished 14 cycles. She was then noted to have a palpable mass asked below the umbilicus to the right side. CT scan showed a new 2.3 x 2.4 cm soft tissue nodularity in the posterior right pelvis. Patient had a PET CT scan and discussed with Dr. Bruner patient to start treatment with Avastin and Alimta. Patient was given vitamin B12, 1000 mcg one -week prior as a preparation for her treatment with Alimta together with folic acid 1 mg daily and a prescription of Decadron 4 mg twice daily for three days to start the day before chemotherapy. Patient then developed diarrhea up to 15 loose stools a day and ongoing vomiting and nausea. Patient was treated surgically for small bowel obstruction and reversal of colostomy. Patient started treatment with Zejula after release from the hospital. Labs have been monitored weekly and remain relatively stable. Patient started Gemzar given on day 1 and 8 every 21 days on 09/27/2017. She will receive cycle 2 day 1 of treatment today. Aloxi was added as an anti-emetic premed and patient will have CA 125 every 21 days for monitoring. CA 125 baseline was 149. She will complete weekly CBC and CMP. 2. Chemotherapy-induced thrombocytopenia. We will continue to monitor 3. Dehydration and malnutrition. Patient will be hydrated with 500 mL with each treatment. 4. Anemia secondary to chemotherapy. Patient's hemoglobin is currently 10.0 which is improved from previous. We'll continue to monitor and will transfuse if hemoglobin is below 8. PLAN 1. Gemzar cycle 2 day 1 today. 2 Patient will follow with provider with each cycle. CA 125 will be drawn with each cycle 3. Patient will be hydrated with 500 mils with each treatment I personally spent a total of 20 minutes [id number] with patient and spouse for plan of care HUGO MORROW SUBMARINE WORKER-BC, ONC Oct 18, 2017 14:14
[2017-10-18 15:11] VITALS: BP 101/52
[2017-10-25 12:00] VITALS: BP 120/82
[2017-10-25] MEDS: LIDOCAINE/SOD BICARB 8.4% SYR ID PRN (12:15)
[2017-10-25] MEDS: NS(*) 0.9% 500 ML BAG 500 ML IV PRN (12:15)
[2017-10-25] MEDS: DEXAMETHASONE SOD PHOS 10MG/ML IVP PRN (13:11)
--- NOTE | 2017-10-25 13:21 | ONC Progress Note - NP.Halsey ---
Patient History Date of Service Oct 25, 2017 Reason For Visit/HPI Patient is seen with her in the clinic today for Gemzar cycle 2 day 8 of treatment. Patient continues to feel well and is exercising more. She feels that her strength is increasing. She would like to try to go back to work in November. She has gained approximately 3 pounds. She has no concerns today. Labs were reviewed in detail with patient and spouse. 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 On March 25, 2010 pelvic ultrasound showed markedly enlarged ovaries bilaterally with cystic areas with thick septation. CA-125 was 632. On March CT of abdomen and pelvis showed large septated cystic mass encompassing both ovaries. On March 30, 2016 a staging laparotomy with total abdominal hysterectomy and bilateral salpingo-oophorectomy with surgical staging showed bilateral 10 cm to 12 cm ovarian masses attached to the posterior uterus with 5 mm metastatic lesion on the posterior cul-de-sac. Pathology was positive for left ovarian 23.5 cm poorly differentiated endometrioid adenocarcinoma with 10 cm right ovarian tumor with poorly differentiated endometrioid adenocarcinoma with capsular rupture involving the left and right ovaries and right fallopian tube with implant on the posterior surface on the uterus and the cul-de-sac. Postoperative course was complicated by small bowel obstruction resolved with conservative therapy. CA-125 postoperatively was 46. Pelvic washings were also negative. One right pelvic lymph node was negative. Four left pelvic lymph nodes were negative. Paraaortic lymph node was also negative. Other four regional lymph nodes were also negative, so the lymph nodes were all negative. The patient's tumor was staged as stage IIB (T2b N0 M0) FIGO grade 3. The patient received six cycles of carboplatin and Paclitaxel between June 17, 2010 through October 06, 2010. The patient had hernia repair on May 28, 2015 followed by fluid accumulation and firmness in the lower abdomen and erythema of the skin of the lower abdomen, treated for possible cellulitis with multiple antibiotics without improvement. She also had persistent nausea and vomiting without colic abdominal pain. CT of the abdomen and pelvis with contrast done on October 23, 2015 revealed abnormal soft tissue thickening and inflammatory change along the hernia mesh with proximal small bowel dilatation with small bowel appearing partially tapered underlying the hernia mesh with small bowel multiple air fluid levels. There was decompression of the rest of the small bowel and colon. There were slightly enlarged mesenteric nodes. There was also some nodularity along the omentum and the mesentery, and a new mass invading into the left pelvic sidewall, 6.3 cm in size. PET-CT scan done on November 18, 2015 revealed the mass was in the left hemipelvis anterior to the iliacus muscle measuring 5 x 6 cm with SUV value of 19.3, peritoneal metastatic disease anteriorly extending to the right and left about 10 cm in the cephalocaudad extent and 1 cm in thickness, SUV value approaches 8.6. The patient received one cycle of carboplatin and Abraxane on November 17, 2015, but her CA-125 alessandro from 145 to 227 and her small bowel obstruction got worse, so the patient after that started treatment with FOLFIRI and Avastin was not given at that time for fear of the small bowel obstruction and perforation. She received her first cycle of FOLFIRI on December 08, 2015. She received her second cycle of chemotherapy on December with FOLFIRI, and she showed a CA-125 response. She received a third cycle of FOLFIRI on January 05, 2016 and Avastin added to her fourth cycle on January 19, 2016. The patient received a total of sixteen cycles of Avastin and FOLFIRI, completed in June 2016. The patient started maintenance chemotherapy with Avastin, 5-FU and leucovorin on September 26, 2016 and completed 14 cycles unfortunately her tumor markers were elevating. CEA 125 was elevated at 45. Patient then developed a small bowel obstruction and this was followed by surgical procedure with colostomy and then reconnection. A shunt was on oral chemotherapy with Zejula but had significant side effects so this was discontinued. Patient guarded single agent Gemzar day 1 and day 8 every 21 day cycle on 2016. We will continue to monitor CA 125 . 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 Alcohol History She denies use Smoking History: No Smoking Status: Never Smoker Exposure to Second Hand Smoke?: No Medications and Allergies Active Scripts Potassium Chloride (POTASSIUM CHLORIDE) 20 Meq Tab.er.prt, 1 TAB PO BIDBS, #30 TAB 0 Refills Prov:ROXANA MONTANEZ MD 08/22/17 Niraparib Tosylate (Zejula) 100 Mg Capsule, 300 MG PO DAILY, #90 CAP Prov:HUGO MORROW Jus LIFE SUPPORT TECHNICIAN-BC, ONC 08/20/17 Reported Medications Niraparib Tosylate (Zejula) 100 Mg Capsule, 100 MG PO DAILY 09/04/17 Mu-Vits-Min Th/Lycopene/Lutein (CENTRUM SILVER TABLET) 1 Each Tablet, 1 EACH PO QDAY 08/29/17 Folic Acid (FOLIC ACID) 1 Mg Tablet, 1 MG PO QDAY, TAB 06/15/17 Cyanocobalamin (Vitamin B-12) (VITAMIN B-12) 50 Mcg Tablet, 50 MCG PO DAILY 04/07/16 Mv,Ca,Min/Iron Fum/Fa/Vit K (MULTI FOR HER TABLET) 1 Each Tablet, 1 EACH PO 04/17/13 Allergies: Coded Allergies: No Known Drug Allergies (Verified , 05/26/15) Review of System/Physical Exam Review of Systems All Systems Reviewed/Normal: Yes, Except as Noted Hematologic: Positive for Fatigue, Positive for Weakness (improving) Physical Exam Vital Signs Temperature: 99.1 Pulse: 105 BP Systolic: 120 BP Diastolic: 82 Respiratory Rate: 14 O2 SAT: 93 O2 Delivery: Room Air Height (inches) 65.00 Weight lb: Weight oz: 8.0 Weight Kg (Wan): Pain: 0 ECOG Score: 1 General: Stable, Well Developed, Well Nourished, Not In Acute Distress Neck: Supple Lungs: Clear to Auscultation Heart: Regular Rate, Regular Rhythm, No Gallops Abdomen: Soft and Nontender, No Hepatosplenomegaly, No Masses, Other (incision from surgery, mid abdominal wall and right lateral aspect is well healed and well approximated without s/s of infection) Psychiatric: Mood appears normal, Affect appears normal Skin: No Skin Rashes, No Bruising, No Purpura Diagnostic Studies Diagnostic Studies Laboratory Laboratory Tests 10/25/17 12:38 Laboratory Tests 09/26/17 12:00: Neutrophils % (Manual) 64, Lymphocytes % (Manual) 15, Atypical Lymphocytes % 8, Monocytes % (Manual) 9, Eosinophils % (Manual) 2, Basophils % (Manual) 1, Myelocytes % 1, Polychromasia 2+, Anisocytosis 3+, Microcytosis 1+, Macrocytosis 2+ 10/04/17 12:23: Red Blood Count 2.84, Mean Corpuscular Volume 97.1, Mean Corpuscular Hemoglobin 31.9, Mean Corpuscular Hemoglobin Concent 32.8, Red Cell Distribution Width 23.5 , Mean Platelet Volume 8.3, Monocytes (%) (Auto) 12.8, Eosinophils (%) (Auto) 1.2, Basophils (%) (Auto) 0.5, Nucleated RBC Relative Count (auto) 0.2, Monocytes # (Auto) 0.8, Eosinophils # (Auto) 0.1, Basophils # (Auto) 0.0, Nucleated RBC Absolute Count (auto) 0.01, Peripheral Blood Smear Yes 10/18/17 12:30: CA 125 Antigen 110 10/25/17 12:38: White Blood Count 3.9, Hemoglobin 9.6, Hematocrit 29.1, Platelet Count 180, Neutrophils (%) (Auto) 43.0, Lymphocytes (%) (Auto) 41.8, Neutrophils # (Auto) 1.7, Lymphocytes # (Auto) 1.6, Sodium Level 140, Potassium Level 3.7, Chloride Level 106, Carbon Dioxide Level 26, Blood Urea Nitrogen 11, Creatinine 0.40, Glomerular Filtration Rate Calc > 60.0, Random Glucose 80, Calcium Level 8.6, Total Bilirubin 0.5, Aspartate Amino Transf (AST/SGOT) 22, Alanine Aminotransferase (ALT/SGPT) 37, Alkaline Phosphatase 118, Total Protein 6.7, Albumin 3.3 Assessment and Plan Assessment & Plan 1. Recurrent ovarian carcinoma. This is her second recurrence. She had a recurrence with partial small bowel obstruction October 2015 and patient received one cycle of carboplatin and Abraxane without improvement with rising of her CA-125 from 144 to 227 so the patient after that received treatment with FOLFIRI started December 08, 2015 and Avastin was added to her treatment after her bowel obstruction resolved. She received 16 cycles of FOLFIRI. CA-125 dropped from 227 to 23. She had a PET/CT scan on September 08, 2016 which was negative. Patient started maintenance chemotherapy with Avastin, 5-FU and leucovorin October 26, 2016, and she finished 14 cycles. She was then noted to have a palpable mass asked below the umbilicus to the right side. CT scan showed a new 2.3 x 2.4 cm soft tissue nodularity in the posterior right pelvis. Patient had a PET CT scan and discussed with Dr. Bruner patient to start treatment with Avastin and Alimta. Patient was given vitamin B12, 1000 mcg one -week prior as a preparation for her treatment with Alimta together with folic acid 1 mg daily and a prescription of Decadron 4 mg twice daily for three days to start the day before chemotherapy. Patient then developed diarrhea up to 15 loose stools a day and ongoing vomiting and nausea. Patient was treated surgically for small bowel obstruction and reversal of colostomy. Patient started treatment with Zejula after release from the hospital however did not tolerate it and tumor marker increased. She was then started on Gemzar given on day 1 and 8 every 21 days on 09/27/2017. She will receive cycle 2 day 8 of treatment today. Aloxi was added as an anti-emetic premed. CA 125 has decreased to 110 on 10-18-17, baseline was 149. We will repeat a CA 125 with cycle 5 per patient request. She will complete weekly CBC and CMP. 2. Chemotherapy-induced thrombocytopenia. We will continue to monitor 3. Dehydration and malnutrition. Patient will be hydrated with 500 mL with each treatment. 4. Anemia secondary to chemotherapy. Patient's hemoglobin is currently 9.6 with remains stable.We'll continue to monitor and will transfuse if hemoglobin is below 8. PLAN 1. Gemzar cycle 2 day 8 today. 2 Patient will follow with provider with each cycle. CA 125 will be drawn with cycle 5 next. 3. Patient will be hydrated with 500 mils with each treatment I personally spent a total of 20 minutes [id number] with patient and spouse for plan of care HUGO MORROW LIFE SUPPORT TECHNICIAN-BC, ONC Oct 25, 2017 13:21
[2017-10-25] MEDS: PALONOSETRON 0.25 MG/5 ML VIAL IVP PRN (13:27)
[2017-10-25] MEDS: HEPARIN FLSH (PORT) 500 UN/5ML IVP PRN (15:29)
[2017-10-25 15:31] VITALS: BP 126/75
[2017-11-08] MEDS: LIDOCAINE/SOD BICARB 8.4% SYR ID PRN (12:30)
[2017-11-08] MEDS: NS(*) 0.9% 500 ML BAG 500 ML IV PRN (13:00)
--- NOTE | 2017-11-08 13:10 | ONC Progress Note - NP.Halsey ---
Patient History Date of Service Nov 08, 2017 Reason For Visit/HPI Patient is seen in the clinic today for Gemzar cycle 3 day 1 of treatment. Overall patient continues to feel well and is stronger each week. She is trying to eat well. She denies any symptoms of diarrhea or constipation, no nausea or vomiting, no shortness of breath or difficulty breathing. 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 Her is with her today and agrees with this plan. 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 On March 25, 2010 pelvic ultrasound showed markedly enlarged ovaries bilaterally with cystic areas with thick septation. CA-125 was 632. On March CT of abdomen and pelvis showed large septated cystic mass encompassing both ovaries. On March 30, 2016 a staging laparotomy with total abdominal hysterectomy and bilateral salpingo-oophorectomy with surgical staging showed bilateral 10 cm to 12 cm ovarian masses attached to the posterior uterus with 5 mm metastatic lesion on the posterior cul-de-sac. Pathology was positive for left ovarian 23.5 cm poorly differentiated endometrioid adenocarcinoma with 10 cm right ovarian tumor with poorly differentiated endometrioid adenocarcinoma with capsular rupture involving the left and right ovaries and right fallopian tube with implant on the posterior surface on the uterus and the cul-de-sac. Postoperative course was complicated by small bowel obstruction resolved with conservative therapy. CA-125 postoperatively was 46. Pelvic washings were also negative. One right pelvic lymph node was negative. Four left pelvic lymph nodes were negative. Paraaortic lymph node was also negative. Other four regional lymph nodes were also negative, so the lymph nodes were all negative. The patient's tumor was staged as stage IIB (T2b N0 M0) FIGO grade 3. The patient received six cycles of carboplatin and Paclitaxel between June 17, 2010 through October 06, 2010. The patient had hernia repair on May 28, 2015 followed by fluid accumulation and firmness in the lower abdomen and erythema of the skin of the lower abdomen, treated for possible cellulitis with multiple antibiotics without improvement. She also had persistent nausea and vomiting without colic abdominal pain. CT of the abdomen and pelvis with contrast done on October 23, 2015 revealed abnormal soft tissue thickening and inflammatory change along the hernia mesh with proximal small bowel dilatation with small bowel appearing partially tapered underlying the hernia mesh with small bowel multiple air fluid levels. There was decompression of the rest of the small bowel and colon. There were slightly enlarged mesenteric nodes. There was also some nodularity along the omentum and the mesentery, and a new mass invading into the left pelvic sidewall, 6.3 cm in size. PET-CT scan done on November 18, 2015 revealed the mass was in the left hemipelvis anterior to the iliacus muscle measuring 5 x 6 cm with SUV value of 19.3, peritoneal metastatic disease anteriorly extending to the right and left about 10 cm in the cephalocaudad extent and 1 cm in thickness, SUV value approaches 8.6. The patient received one cycle of carboplatin and Abraxane on November 17, 2015, but her CA-125 alessandro from 145 to 227 and her small bowel obstruction got worse, so the patient after that started treatment with FOLFIRI and Avastin was not given at that time for fear of the small bowel obstruction and perforation. She received her first cycle of FOLFIRI on December 08, 2015. She received her second cycle of chemotherapy on December with FOLFIRI, and she showed a CA-125 response. She received a third cycle of FOLFIRI on January 05, 2016 and Avastin added to her fourth cycle on January 19, 2016. The patient received a total of sixteen cycles of Avastin and FOLFIRI, completed in June 2016. The patient started maintenance chemotherapy with Avastin, 5-FU and leucovorin on September 26, 2016 and completed 14 cycles unfortunately her tumor markers were elevating. CEA 125 was elevated at 45. Patient then developed a small bowel obstruction and this was followed by surgical procedure with colostomy and then reconnection. A shunt was on oral chemotherapy with Zejula but had significant side effects so this was discontinued. Patient guarded single agent Gemzar day 1 and day 8 every 21 day cycle on 2016. We will continue to monitor CA 125 . 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 Alcohol History She denies use Smoking History: No Smoking Status: Never Smoker Exposure to Second Hand Smoke?: No Medications and Allergies Active Scripts Potassium Chloride (POTASSIUM CHLORIDE) 20 Meq Tab.er.prt, 1 TAB PO BIDBS, #30 TAB 0 Refills Prov:ROXANA MONTANEZ MD 08/22/17 Niraparib Tosylate (Zejula) 100 Mg Capsule, 300 MG PO DAILY, #90 CAP Prov:HUGO MORROW EM[employer]Y MANAGEMENT SYSTEM DIRECTOR-BC, ONC 08/20/17 Reported Medications Niraparib Tosylate (Zejula) 100 Mg Capsule, 100 MG PO DAILY 09/04/17 Mu-Vits-Min Th/Lycopene/Lutein (CENTRUM SILVER TABLET) 1 Each Tablet, 1 EACH PO QDAY 08/29/17 Folic Acid (FOLIC ACID) 1 Mg Tablet, 1 MG PO QDAY, TAB 06/15/17 Cyanocobalamin (Vitamin B-12) (VITAMIN B-12) 50 Mcg Tablet, 50 MCG PO DAILY 04/07/16 Mv,Ca,Min/Iron Fum/Fa/Vit K (MULTI FOR HER TABLET) 1 Each Tablet, 1 EACH PO 04/17/13 Allergies: Coded Allergies: No Known Drug Allergies (Verified , 05/26/15) Review of System/Physical Exam Review of Systems All Systems Reviewed/Normal: Yes, Except as Noted (improved) Constitutional: Positive for Appetite/Weight Change Hematologic: Positive for Fatigue (improved), Positive for Weakness (lower extremity weakness is slowly improving patient is able to walk further than previous) Physical Exam Vital Signs Temperature: 98.7 Pulse: 100 BP Systolic: 126 BP Diastolic: 75 Respiratory Rate: 16 O2 SAT: 85 O2 Delivery: Room Air Height (inches) 65.00 Weight lb: Weight oz: 8.0 Weight Kg (Wan): Pain: 0 ECOG Score: 0 General: Stable, Well Developed, Well Nourished, Not In Acute Distress Neck: Supple Lungs: Clear to Auscultation Heart: Regular Rate, Regular Rhythm, No Gallops Abdomen: Soft and Nontender, No Hepatosplenomegaly, No Masses, Other (bowel sounds are active, incisional sites are completely healed) Extremities: No Cyanosis, No Clubbing, No Edema Lymphadenopathy: No Cervical Psychiatric: Mood appears normal, Affect appears normal Skin: No Skin Rashes, No Bruising, No Purpura Diagnostic Studies Diagnostic Studies Laboratory CA 125 was 110 on 11-30-17 previous was 149 Laboratory Tests 11/08/17 12:25 Laboratory Tests 09/26/17 12:00: Neutrophils % (Manual) 64, Lymphocytes % (Manual) 15, Atypical Lymphocytes % 8, Monocytes % (Manual) 9, Eosinophils % (Manual) 2, Basophils % (Manual) 1, Myelocytes % 1, Polychromasia 2+, Anisocytosis 3+, Microcytosis 1+, Macrocytosis 2+ 10/04/17 12:23: Red Blood Count 2.84, Mean Corpuscular Volume 97.1, Mean Corpuscular Hemoglobin 31.9, Mean Corpuscular Hemoglobin Concent 32.8, Red Cell Distribution Width 23.5 , Mean Platelet Volume 8.3, Monocytes (%) (Auto) 12.8, Eosinophils (%) (Auto) 1.2, Basophils (%) (Auto) 0.5, Nucleated RBC Relative Count (auto) 0.2, Monocytes # (Auto) 0.8, Eosinophils # (Auto) 0.1, Basophils # (Auto) 0.0, Nucleated RBC Absolute Count (auto) 0.01, Peripheral Blood Smear Yes 10/18/17 12:30: CA 125 Antigen 110 11/08/17 12:25: White Blood Count 4.1, Hemoglobin 10.2, Hematocrit 32.0, Platelet Count 341, Neutrophils (%) (Auto) 54.4, Lymphocytes (%) (Auto) 30.2, Neutrophils # (Auto) 2.2, Lymphocytes # (Auto) 1.2, Sodium Level 143, Potassium Level 4.0, Chloride Level 108, Carbon Dioxide Level 25, Blood Urea Nitrogen 11, Creatinine 0.50, Glomerular Filtration Rate Calc > 60.0, Random Glucose 99, Calcium Level 8.6, Total Bilirubin 0.6, Aspartate Amino Transf (AST/SGOT) 16, Alanine Aminotransferase (ALT/SGPT) 26, Alkaline Phosphatase 94, Total Protein 6.7, Albumin 3.4 Assessment and Plan Assessment & Plan 1. Recurrent ovarian carcinoma. This is her second recurrence. She had a recurrence with partial small bowel obstruction October 2015 and patient received one cycle of carboplatin and Abraxane without improvement with rising of her CA-125 from 144 to 227 so the patient after that received treatment with FOLFIRI started December 08, 2015 and Avastin was added to her treatment after her bowel obstruction resolved. She received 16 cycles of FOLFIRI. CA-125 dropped from 227 to 23. She had a PET/CT scan on September 08, 2016 which was negative. Patient started maintenance chemotherapy with Avastin, 5-FU and leucovorin October 26, 2016, and she finished 14 cycles. She was then noted to have a palpable mass asked below the umbilicus to the right side. CT scan showed a new 2.3 x 2.4 cm soft tissue nodularity in the posterior right pelvis. Patient had a PET CT scan and discussed with Dr. Bruner patient to start treatment with Avastin and Alimta. Patient was given vitamin B12, 1000 mcg one -week prior as a preparation for her treatment with Alimta together with folic acid 1 mg daily and a prescription of Decadron 4 mg twice daily for three days to start the day before chemotherapy. Patient then developed diarrhea up to 15 loose stools a day and ongoing vomiting and nausea. Patient was treated surgically for small bowel obstruction and reversal of colostomy. Patient started treatment with Zejula after release from the hospital however did not tolerate it and tumor marker increased. She was then started on Gemzar given on day 1 and 8 every 21 days on 09/27/2017. She will receive cycle 3 day 1 of treatment today. Aloxi was added as an anti-emetic premed. CA 125 has decreased to 110 on 10-18-17, baseline was 149. We will repeat a CA 125 with cycle 5 per patient request. She will complete weekly CBC and CMP. 2. Chemotherapy-induced thrombocytopenia. We will continue to monitor 3. Dehydration and malnutrition. Patient will be hydrated with 500 mL with each treatment. 4. Anemia secondary to chemotherapy. Patient's hemoglobin is currently 10.2 with remains stable.We'll continue to monitor and will transfuse if hemoglobin is below 8. Patient will receive vitamin B12 1000 g subcutaneous today. PLAN 1. Gemzar cycle 3 day 1 today. 2 Patient will follow with provider with each cycle. CA 125 will be drawn with cycle 5 next. 3. Patient will be hydrated with 500 mils with each treatment I personally spent a total of 20 minutes [id number] with patient and spouse for plan of care Copies to: SEVERIANO KURTZ NANCY J FNP-BC, ONC Nov 08, 2017 13:09
[2017-11-08] MEDS: DEXAMETHASONE SOD PHOS 10MG/ML IVP PRN (13:34)
[2017-11-08] MEDS: PALONOSETRON 0.25 MG/5 ML VIAL IVP PRN (13:34)
[2017-11-08] MEDS: HEPARIN FLSH (PORT) 500 UN/5ML IVP PRN (15:00)
[2017-11-08 15:26] VITALS: BP 134/53
[2017-11-15 12:26] VITALS: BP 111/70
[2017-11-15 12:33] LABS: PLATELET COUNT, AUTOMATED 200 K/uL (150-450)
[2017-11-15] MEDS: DEXAMETHASONE SOD PHOS 10MG/ML IVP PRN (12:58)
[2017-11-15] MEDS: PALONOSETRON 0.25 MG/5 ML VIAL IVP PRN (12:59)
[2017-11-15] MEDS: NS(*) 0.9% 500 ML BAG 500 ML IV PRN (12:59)
[2017-11-15] MEDS: HEPARIN FLSH (PORT) 500 UN/5ML IVP PRN (12:59)
--- NOTE | 2017-11-15 13:06 | ONC Progress Note - NP.Halsey ---
Patient History Date of Service Nov 15, 2017 Reason For Visit/HPI Patient is seen in the clinic today for Gemzar cycle 3 day 8 of treatment. Overall patient continues to feel well and is stronger each week. She is eating well. She was active over the holidays. She does report fatigue on day 2 and 3 post treatment but then rebounds. She denies any symptoms of diarrhea or constipation, no nausea or vomiting, no shortness of breath or difficulty breathing. 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 Oncology History The patient is a 61-year-old woman who presented in February 2010 with vaginal spotting. On March 25, 2010 pelvic ultrasound showed markedly enlarged ovaries bilaterally with cystic areas with thick septation. CA-125 was 632. On March CT of abdomen and pelvis showed large septated cystic mass encompassing both ovaries. On March 30, 2016 a staging laparotomy with total abdominal hysterectomy and bilateral salpingo-oophorectomy with surgical staging showed bilateral 10 cm to 12 cm ovarian masses attached to the posterior uterus with 5 mm metastatic lesion on the posterior cul-de-sac. Pathology was positive for left ovarian 23.5 cm poorly differentiated endometrioid adenocarcinoma with 10 cm right ovarian tumor with poorly differentiated endometrioid adenocarcinoma with capsular rupture involving the left and right ovaries and right fallopian tube with implant on the posterior surface on the uterus and the cul-de-sac. Postoperative course was complicated by small bowel obstruction resolved with conservative therapy. CA-125 postoperatively was 46. Pelvic washings were also negative. One right pelvic lymph node was negative. Four left pelvic lymph nodes were negative. Paraaortic lymph node was also negative. Other four regional lymph nodes were also negative, so the lymph nodes were all negative. The patient's tumor was staged as stage IIB (T2b N0 M0) FIGO grade 3. The patient received six cycles of carboplatin and Paclitaxel between June 17, 2010 through October 06, 2010. The patient had hernia repair on May 28, 2015 followed by fluid accumulation and firmness in the lower abdomen and erythema of the skin of the lower abdomen, treated for possible cellulitis with multiple antibiotics without improvement. She also had persistent nausea and vomiting without colic abdominal pain. CT of the abdomen and pelvis with contrast done on October 23, 2015 revealed abnormal soft tissue thickening and inflammatory change along the hernia mesh with proximal small bowel dilatation with small bowel appearing partially tapered underlying the hernia mesh with small bowel multiple air fluid levels. There was decompression of the rest of the small bowel and colon. There were slightly enlarged mesenteric nodes. There was also some nodularity along the omentum and the mesentery, and a new mass invading into the left pelvic sidewall, 6.3 cm in size. PET-CT scan done on November 18, 2015 revealed the mass was in the left hemipelvis anterior to the iliacus muscle measuring 5 x 6 cm with SUV value of 19.3, peritoneal metastatic disease anteriorly extending to the right and left about 10 cm in the cephalocaudad extent and 1 cm in thickness, SUV value approaches 8.6. The patient received one cycle of carboplatin and Abraxane on November 17, 2015, but her CA-125 alessandro from 145 to 227 and her small bowel obstruction got worse, so the patient after that started treatment with FOLFIRI and Avastin was not given at that time for fear of the small bowel obstruction and perforation. She received her first cycle of FOLFIRI on December 08, 2015. She received her second cycle of chemotherapy on December with FOLFIRI, and she showed a CA-125 response. She received a third cycle of FOLFIRI on January 05, 2016 and Avastin added to her fourth cycle on January 19, 2016. The patient received a total of sixteen cycles of Avastin and FOLFIRI, completed in June 2016. The patient started maintenance chemotherapy with Avastin, 5-FU and leucovorin on September 26, 2016 and completed 14 cycles unfortunately her tumor markers were elevating. CEA 125 was elevated at 45. Patient then developed a small bowel obstruction and this was followed by surgical procedure with colostomy and then reconnection. A shunt was on oral chemotherapy with Zejula but had significant side effects so this was discontinued. Patient guarded single agent Gemzar day 1 and day 8 every 21 day cycle on 2016. We will continue to monitor CA 125 . 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 Alcohol History She denies use Smoking History: No Smoking Status: Never Smoker Exposure to Second Hand Smoke?: No Medications and Allergies Active Scripts Potassium Chloride (POTASSIUM CHLORIDE) 20 Meq Tab.er.prt, 1 TAB PO BIDBS, #30 TAB 0 Refills Prov:ROXANA MONTANEZ MD 08/22/17 Niraparib Tosylate (Zejula) 100 Mg Capsule, 300 MG PO DAILY, #90 CAP Prov:HUGO MORROW [employer] AND WELLNESS COORDINATOR-BC, ONC 08/20/17 Reported Medications Niraparib Tosylate (Zejula) 100 Mg Capsule, 100 MG PO DAILY 09/04/17 Mu-Vits-Min Th/Lycopene/Lutein (CENTRUM SILVER TABLET) 1 Each Tablet, 1 EACH PO QDAY 08/29/17 Folic Acid (FOLIC ACID) 1 Mg Tablet, 1 MG PO QDAY, TAB 06/15/17 Cyanocobalamin (Vitamin B-12) (VITAMIN B-12) 50 Mcg Tablet, 50 MCG PO DAILY 04/07/16 Mv,Ca,Min/Iron Fum/Fa/Vit K (MULTI FOR HER TABLET) 1 Each Tablet, 1 EACH PO 04/17/13 Allergies: Coded Allergies: No Known Drug Allergies (Verified , 05/26/15) Review of System/Physical Exam Review of Systems All Systems Reviewed/Normal: Yes, Except as Noted Gastrointestinal: Other (dominant all incision from colostomy reversal is almost completely healed.) Hematologic: Positive for Fatigue, Positive for Weakness (this is improving) Physical Exam Vital Signs Temperature: 98.2 Pulse: 103 BP Systolic: 111 BP Diastolic: 70 Respiratory Rate: 16 O2 SAT: 92 O2 Delivery: Room Air Height (inches) 65.00 Weight lb: Weight oz: 8.0 Weight Kg (Wan): Pain: 0 ECOG Score: 1 General: Stable, Well Developed, Well Nourished, Not In Acute Distress HEENT: No Trauma, No Conjunctivitis, No Icterus, No Mucositis, No Oral Thrush Neck: Supple Lungs: Clear to Auscultation Heart: Regular Rate, Regular Rhythm Abdomen: Soft and Nontender, No Hepatosplenomegaly, No Masses, Other ( abdominal incision is completely healed) Extremities: No Cyanosis, No Clubbing, No Edema Lymphadenopathy: No Cervical Psychiatric: Mood appears normal, Affect appears normal Skin: No Skin Rashes, No Bruising, No Purpura Diagnostic Studies Diagnostic Studies Laboratory Laboratory Tests 11/15/17 12:18 Laboratory Tests 09/26/17 12:00: Neutrophils % (Manual) 64, Lymphocytes % (Manual) 15, Atypical Lymphocytes % 8, Monocytes % (Manual) 9, Eosinophils % (Manual) 2, Basophils % (Manual) 1, Myelocytes % 1, Polychromasia 2+, Anisocytosis 3+, Microcytosis 1+, Macrocytosis 2+ 10/18/17 12:30: CA 125 Antigen 110 11/15/17 12:18: White Blood Count 4.4, Red Blood Count 3.20, Hemoglobin 10.4, Hematocrit 31.9, Mean Corpuscular Volume 99.7, Mean Corpuscular Hemoglobin 32.4, Mean Corpuscular Hemoglobin Concent 32.5, Red Cell Distribution Width 23.6, Platelet Count 200, Mean Platelet Volume 7.6, Neutrophils (%) (Auto) 41.5, Lymphocytes (% ) (Auto) 39.4, Monocytes (%) (Auto) 18.2, Eosinophils (%) (Auto) 0.6, Basophils (%) (Auto) 0.3, Nucleated RBC Relative Count (auto) 0.1, Neutrophils # (Auto) 1.8, Lymphocytes # (Auto) 1.7, Monocytes # (Auto) 0.8, Eosinophils # (Auto) 0.0 , Basophils # (Auto) 0.0, Nucleated RBC Absolute Count (auto) 0.00, Peripheral Blood Smear Yes, Sodium Level 139, Potassium Level 3.9, Chloride Level 105, Carbon Dioxide Level 25, Blood Urea Nitrogen 13, Creatinine 0.50, Glomerular Filtration Rate Calc > 60.0, Random Glucose 110, Calcium Level 9.0, Total Bilirubin 0.5, Aspartate Amino Transf (AST/SGOT) 19, Alanine Aminotransferase ( ALT/SGPT) 33, Alkaline Phosphatase 100, Total Protein 7.1, Albumin 3.6 Assessment and Plan Assessment & Plan 1. Recurrent ovarian carcinoma. This is her second recurrence. She had a recurrence with partial small bowel obstruction October 2015 and patient received one cycle of carboplatin and Abraxane without improvement with rising of her CA-125 from 144 to 227 so the patient after that received treatment with FOLFIRI started December 08, 2015 and Avastin was added to her treatment after her bowel obstruction resolved. She received 16 cycles of FOLFIRI. CA-125 dropped from 227 to 23. She had a PET/CT scan on September 08, 2016 which was negative. Patient started maintenance chemotherapy with Avastin, 5-FU and leucovorin October 26, 2016, and she finished 14 cycles. She was then noted to have a palpable mass asked below the umbilicus to the right side. CT scan showed a new 2.3 x 2.4 cm soft tissue nodularity in the posterior right pelvis. Patient had a PET CT scan and discussed with Dr. Bruner patient to start treatment with Avastin and Alimta. Patient was given vitamin B12, 1000 mcg one -week prior as a preparation for her treatment with Alimta together with folic acid 1 mg daily and a prescription of Decadron 4 mg twice daily for three days to start the day before chemotherapy. Patient then developed diarrhea up to 15 loose stools a day and ongoing vomiting and nausea. Patient was treated surgically for small bowel obstruction and reversal of colostomy. Patient started treatment with Zejula after release from the hospital however did not tolerate it and tumor marker increased. She was then started on Gemzar given on day 1 and 8 every 21 days on 09/27/2017. She will receive cycle 3 day 1 of treatment today. Aloxi was added as an anti-emetic premed. CA 125 has decreased to 110 on 10-18-17, baseline was 149. We will repeat a CA 125 with cycle 5 per patient request. She will complete weekly CBC and CMP. Patient did receive a B12 injection last week. 2. Chemotherapy-induced thrombocytopenia. We will continue to monitor, labs remain stable 3. Dehydration and malnutrition. Patient will be hydrated with 500 mL with each treatment. Patient does well with this plan of care 4. Anemia secondary to chemotherapy. Patient's hemoglobin is currently 10.2 with remains stable.We'll continue to monitor and will transfuse if hemoglobin is below 8. Vitamin B12 1000 g subcutaneous last week. PLAN 1. Gemzar cycle 3 day 8 today. 2 Patient will follow with provider with each cycle. CA 125 will be drawn with cycle 5 next. 3. Patient will be hydrated with 500 mls with each treatment. 4. Dr. Bruner did go and say hello to patient and spouse today. I personally spent a total of 20 minutes [id number] with patient and spouse for plan of care HUGO MORROW FITNESS AND WELLNESS COORDINATOR-BC, ONC Nov 15, 2017 13:05
[2017-11-15] MEDS: LIDOCAINE/SOD BICARB 8.4% SYR ID PRN (14:01)
[2017-11-15 15:00] VITALS: BP 113/58
[2017-11-17 13:30] VITALS: BP 115/70
[2017-11-17 13:41] LABS: PLATELET COUNT, AUTOMATED 189 K/uL (150-450)
[2017-11-17] MEDS: LIDOCAINE/SOD BICARB 8.4% SYR ID PRN (13:41)
[2017-11-17] MEDS: NS(*) 0.9% 1000 ML BAG 1,000 ML IV PRN ×2 (13:42→14:36)
[2017-11-17 14:36] VITALS: BP 129/62
[2017-11-17 15:41] VITALS: BP 126/66
[2017-11-17] MEDS: HEPARIN FLSH (PORT) 500 UN/5ML IVP PRN (15:50)
[2017-11-18 10:53] VITALS: BP 110/54
[2017-11-18] MEDS: NS(*) 0.9% 1000 ML BAG 1,000 ML IV PRN (10:56)
[2017-11-18] MEDS: LIDOCAINE/SOD BICARB 8.4% SYR ID PRN (10:56)
[2017-11-27 14:57] VITALS: BP 110/65
[2017-11-27] MEDS: LIDOCAINE/SOD BICARB 8.4% SYR ID PRN (14:57)
[2017-11-27 15:01] LABS: PLATELET COUNT, AUTOMATED 291 K/uL (150-450)
[2017-11-27] MEDS: NS(*) 0.9% 1000 ML BAG 1,000 ML IV PRN (15:10)
--- NOTE | 2017-11-27 15:35 | RADIOLOGY IMAGING REPORT ---
FACILITY: [facility] PATIENT NAME: Carolina Hill : 1955 MR: [id number] V: [id number] EXAM DATE: ORDERING PHYSICIAN: HUGO MORROW TECHNOLOGIST: Location: [facility] [place] Patient: Carolina Hill : 1955 Visit/Account:[id number] Date of Sevice: 11/27/2017 Exam type: CHEST SINGLE AP History: History of pleural effusion, history of SBO, nausea and vomiting Comparison: November 21, 2017. Findings: Small left pleural effusion appears partially decreased in size. There is also been improvement of t he left basilar airspace consolidation. Small right pleural effusion no longer identified. Pneumoth orax no longer seen The cardiac silhouette is normal. There is a right IJ implanted port distal tip of the superior vena cava. IMPRESSION: 1. Interval resolution of the small right pleural effusion and decrease in size of the small left pl eural effusion There is also been decrease in the left basilar airspace consolidation No evidence of pneumothorax at this time Report Dictated By: Katie Alvarado MD at 11/27/2017 3:30 PM Report E-Signed By: Katie Alvarado MD at 11/27/2017 3:31 PM WSN:[email or web address]
--- NOTE | 2017-11-27 15:42 | RADIOLOGY IMAGING REPORT ---
FACILITY: [facility] [place] PATIENT NAME: Carolina Hill : 1955 MR: [id number] V: [id number] EXAM DATE: ORDERING PHYSICIAN: HUGO MORROW TECHNOLOGIST: Location: [facility] [place] Patient: Carolina Hill : 1955 Visit/Account:[id number] Date of Sevice: 11/27/2017 Exam type: KUB SINGLE VIEW ABDOMEN History: Nausea vomiting and history of SBO Comparison: November 21, 2017. Findings: There are multiple loops of moderately dilated small bowel seen throughout the abdomen dated increase d slightly in diameter now measuring up to 5.9 cm in diameter. The colon does not appear distended. There are surgical clips and right-sided abdomen. There are spondylotic changes lumbar spine. IMPRESSION: 1. Findings are consistent with increasing small bowel obstruction Results were called to HUGO MORROW at 11/27/2017 3:37 PM. Report Dictated By: Katie Alvarado MD at 11/27/2017 3:35 PM Report E-Signed By: Katie Alvarado MD at 11/27/2017 3:37 PM WSN:[email or web address]
[2017-11-28 09:09] VITALS: Ht 167.6 cm; Wt 55.8 kg
[~2017-12-06] VITALS: Ht 167.6 cm; Wt 55.8 kg
[2017-12-06 12:30] VITALS: BP 110/65
[~2017-12-06 13:00] MED LIST changes: +ALTEPLASE RECOMB 2 MG VIAL IVP PRN; +CYANOCOBALAMIN 1000MCG/ML VIAL IM ONLY ONE; +D5W IVPB ONE; +DEXTROSE 5%(*) 100 ML BAG 100 ML IVPB PRN; +GEMCITABINE IVPB ONE; +HEPARIN FLSH (PORT) 500 UN/5ML IVP PRN; +LIDOCAINE/SOD BICARB 8.4% SYR ID PRN; +NS 0.9% IVPB ONE; +NS(*) 0.9% 100 ML BAG 100 ML IVPB PRN; +NS(*) 0.9% 500 ML BAG 500 ML IV PRN; +ONDANSETRON 4 MG/2 ML VIAL IVP ONE; +ONDANSETRON 4 MG/2 ML VIAL IVP PRN; +PROMETHAZINE 25 MG/ML 1 ML AMP IVP PRN; +WATER STERILE 10 ML VIAL IVP PRN; +[UNRECOGNIZED DRUG - OTHER] IVPB ONE; +[UNRECOGNIZED DRUG - OTHER] IVPB ONE
[2017-12-06] MEDS: NS(*) 0.9% 500 ML BAG 500 ML IV PRN ×2 (13:34→14:36)
[2017-12-06] MEDS: LIDOCAINE/SOD BICARB 8.4% SYR ID PRN (13:34)
[2017-12-06] MEDS: HEPARIN FLSH (PORT) 500 UN/5ML IVP PRN (13:34)
[2017-12-06] MEDS: PALONOSETRON 0.25 MG/5 ML VIAL IVP PRN (14:09)
[2017-12-06] MEDS: DEXAMETHASONE SOD PHOS 10MG/ML IVP PRN (14:09)
--- NOTE | 2017-12-06 14:17 | ONC Progress Note - NP.Halsey ---
Patient History Date of Service Dec 06, 2017 Reason For Visit/HPI Patient is seen in the clinic today for Gemzar cycle 4 day 8 of treatment. Patient recently was in the hospital for a small bowel obstruction. Patient reports that she no longer is having nausea or vomiting, she is having one to 2 bowel movements daily, she continues to exercise and to drink plenty of fluids. She had a chest x-ray done which was reviewed and appears to be stable to unremarkable. Patient is scheduled to follow with Dr. Montes tomorrow and will review the results in further detail. Patient's port initially gave a good blood return however prior to initiation of chemotherapy no blood return occurred. Patient was started with Cathflo and after 30 minutes has good blood return. No new concerns today. Problem List (1) Ovarian cancer (2) Small bowel obstruction Oncology History The patient is a 61-year-old woman who presented in February 2010 with vaginal spotting. On March 25, 2010 pelvic ultrasound showed markedly enlarged ovaries bilaterally with cystic areas with thick septation. CA-125 was 632. On March CT of abdomen and pelvis showed large septated cystic mass encompassing both ovaries. On March 30, 2016 a staging laparotomy with total abdominal hysterectomy and bilateral salpingo-oophorectomy with surgical staging showed bilateral 10 cm to 12 cm ovarian masses attached to the posterior uterus with 5 mm metastatic lesion on the posterior cul-de-sac. Pathology was positive for left ovarian 23.5 cm poorly differentiated endometrioid adenocarcinoma with 10 cm right ovarian tumor with poorly differentiated endometrioid adenocarcinoma with capsular rupture involving the left and right ovaries and right fallopian tube with implant on the posterior surface on the uterus and the cul-de-sac. Postoperative course was complicated by small bowel obstruction resolved with conservative therapy. CA-125 postoperatively was 46. Pelvic washings were also negative. One right pelvic lymph node was negative. Four left pelvic lymph nodes were negative. Paraaortic lymph node was also negative. Other four regional lymph nodes were also negative, so the lymph nodes were all negative. The patient's tumor was staged as stage IIB (T2b N0 M0) FIGO grade 3. The patient received six cycles of carboplatin and Paclitaxel between June 17, 2010 through October 06, 2010. The patient had hernia repair on May 28, 2015 followed by fluid accumulation and firmness in the lower abdomen and erythema of the skin of the lower abdomen, treated for possible cellulitis with multiple antibiotics without improvement. She also had persistent nausea and vomiting without colic abdominal pain. CT of the abdomen and pelvis with contrast done on October 23, 2015 revealed abnormal soft tissue thickening and inflammatory change along the hernia mesh with proximal small bowel dilatation with small bowel appearing partially tapered underlying the hernia mesh with small bowel multiple air fluid levels. There was decompression of the rest of the small bowel and colon. There were slightly enlarged mesenteric nodes. There was also some nodularity along the omentum and the mesentery, and a new mass invading into the left pelvic sidewall, 6.3 cm in size. PET-CT scan done on November 18, 2015 revealed the mass was in the left hemipelvis anterior to the iliacus muscle measuring 5 x 6 cm with SUV value of 19.3, peritoneal metastatic disease anteriorly extending to the right and left about 10 cm in the cephalocaudad extent and 1 cm in thickness, SUV value approaches 8.6. The patient received one cycle of carboplatin and Abraxane on November 17, 2015, but her CA-125 alessandro from 145 to 227 and her small bowel obstruction got worse, so the patient after that started treatment with FOLFIRI and Avastin was not given at that time for fear of the small bowel obstruction and perforation. She received her first cycle of FOLFIRI on December 08, 2015. She received her second cycle of chemotherapy on December with FOLFIRI, and she showed a CA-125 response. She received a third cycle of FOLFIRI on January 05, 2016 and Avastin added to her fourth cycle on January 19, 2016. The patient received a total of sixteen cycles of Avastin and FOLFIRI, completed in June 2016. The patient started maintenance chemotherapy with Avastin, 5-FU and leucovorin on September 26, 2016 and completed 14 cycles unfortunately her tumor markers were elevating. CEA 125 was elevated at 45. Patient then developed a small bowel obstruction and this was followed by surgical procedure with colostomy and then reconnection. Shet was on oral chemotherapy with Zejula but had significant side effects so this was discontinued. Patient started single agent Gemzar given on days 1 and 8 every 21 days on 09/27. We will continue to monitor CA 125 . 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 Alcohol History She denies use Smoking History: No Smoking Status: Never Smoker Exposure to Second Hand Smoke?: No Medications and Allergies Reported Medications Cyanocobalamin (Vitamin B-12) (B-12) 500 Mcg Tab.rapdis, 50 MCG PO DAILY 11/20/17 Mu-Vits-Min Th/Lycopene/Lutein (CENTRUM SILVER TABLET) 1 Each Tablet, 1 EACH PO DAILY 11/20/17 Allergies: Coded Allergies: niraparib (Verified Adverse Reaction, Intermediate, sores on mouth, ) Review of System/Physical Exam Review of Systems All Systems Reviewed/Normal: Yes, Except as Noted Respiratory: Positive for Shortness of Breath (significantly improved, patient continues to do inspirometer and reports that she can get it up to 1500 mL's) Hematologic: Positive for Fatigue (slowly improving), Positive for Weakness ( he is improving) Physical Exam Vital Signs Temperature: 97.6 Pulse: 91 BP Systolic: 110 BP Diastolic: 65 Respiratory Rate: 16 O2 SAT: 95 O2 Delivery: Room Air Height (inches) 66.00 Weight lb: 126 Weight oz: 8.0 Weight Kg (Wan): 0.390297 Pain: 0 ECOG Score: 1 General: Stable, Well Developed, Well Nourished, Not In Acute Distress Neck: Supple Lungs: Clear to Auscultation Heart: Regular Rate, Regular Rhythm Abdomen: Soft and Nontender, No Hepatosplenomegaly, No Masses, Other (bowel sounds are active) Extremities: No Cyanosis, No Clubbing, No Edema Lymphadenopathy: No Cervical Psychiatric: Mood appears normal, Affect appears normal Skin: No Skin Rashes, No Bruising, No Purpura Diagnostic Studies Diagnostic Studies Laboratory Laboratory Tests 12/06/17 12:25 Laboratory Tests 09/26/17 12:00: Neutrophils % (Manual) 64, Lymphocytes % (Manual) 15, Atypical Lymphocytes % 8, Monocytes % (Manual) 9, Eosinophils % (Manual) 2, Basophils % (Manual) 1, Myelocytes % 1, Polychromasia 2+, Anisocytosis 3+, Microcytosis 1+, Macrocytosis 2+ 10/18/17 12:30: CA 125 Antigen 110 11/27/17 14:55: Red Blood Count 3.51, Mean Corpuscular Volume 100.8, Mean Corpuscular Hemoglobin 32.5, Mean Corpuscular Hemoglobin Concent 32.2, Red Cell Distribution Width 23.1, Mean Platelet Volume 8.8, Monocytes (%) (Auto) 10.1, Eosinophils (%) (Auto) 0.5, Basophils (%) (Auto) 1.2, Nucleated RBC Relative Count (auto) 0.0, Monocytes # (Auto) 0.9, Eosinophils # (Auto) 0.1, Basophils # (Auto) 0.1, Nucleated RBC Absolute Count (auto) 0.00, Peripheral Blood Smear Yes 12/06/17 12:25: White Blood Count 4.9, Hemoglobin 10.9, Hematocrit 33.3, Platelet Count 236, Neutrophils (%) (Auto) 55.0, Lymphocytes (%) (Auto) 29.6, Neutrophils # (Auto) 2.7, Lymphocytes # (Auto) 1.4, Sodium Level 140, Potassium Level 3.9, Chloride Level 105, Carbon Dioxide Level 25, Blood Urea Nitrogen 9, Creatinine 0.50, Glomerular Filtration Rate Calc > 60.0, Random Glucose 93, Calcium Level 8.7, Total Bilirubin 0.3, Aspartate Amino Transf (AST/SGOT) 21, Alanine Aminotransferase (ALT/SGPT) 29, Alkaline Phosphatase 113, Total Protein 6.8, Albumin 3.5 Assessment and Plan Assessment & Plan 1. Recurrent ovarian carcinoma. This is her second recurrence. She had a recurrence with partial small bowel obstruction October 2015 and patient received one cycle of carboplatin and Abraxane without improvement with rising of her CA-125 from 144 to 227 so the patient after that received treatment with FOLFIRI started December 08, 2015 and Avastin was added to her treatment after her bowel obstruction resolved. She received 16 cycles of FOLFIRI. CA-125 dropped from 227 to 23. She had a PET/CT scan on September 08, 2016 which was negative. Patient started maintenance chemotherapy with Avastin, 5-FU and leucovorin October 26, 2016, and she finished 14 cycles. She was then noted to have a palpable mass asked below the umbilicus to the right side. CT scan showed a new 2.3 x 2.4 cm soft tissue nodularity in the posterior right pelvis. Patient had a PET CT scan and discussed with Dr. Bruner patient to start treatment with Avastin and Alimta. Patient was given vitamin B12, 1000 mcg one -week prior as a preparation for her treatment with Alimta together with folic acid 1 mg daily and a prescription of Decadron 4 mg twice daily for three days to start the day before chemotherapy. Patient then developed diarrhea up to 15 loose stools a day and ongoing vomiting and nausea. Patient was treated surgically for small bowel obstruction and reversal of colostomy. Patient started treatment with Zejula after release from the hospital however did not tolerate it and tumor marker increased. She was then started on Gemzar given on day 1 and 8 every 21 days on 09/27/2017. She will receive cycle 4 day 8 of treatment today. Aloxi was added as an anti-emetic premed. CA 125 has decreased to 110 on 10-18-17, baseline was 149. Most recent CA 125 was 110 on She will complete weekly CBC and CMP. 2. Chemotherapy-induced thrombocytopenia. We will continue to monitor, labs remain stable 3. Dehydration and malnutrition. Patient will be hydrated with 500 mL with each treatment. Patient does well with this plan of care 4. Anemia secondary to chemotherapy. Patient's hemoglobin is currently 10.9. We 'll continue to monitor and will transfuse if hemoglobin is below 8. PLAN 1. Gemzar cycle 4 day 8 today. 2 Patient will follow with provider with each cycle. CA 125 will be drawn with cycle 5 next. 3. Patient will be hydrated with 500 mls with each treatment. 4. Patient is scheduled to follow with Dr. Montes tomorrow. 5. Elio today for non-patent port I personally spent a total of 20 minutes [id number] with patient and spouse for plan of care [facility] SURGERY NURSE-BC, ONC Dec 06, 2017 14:17
[2017-12-06] MEDS ORDERED: GEMCITABINE IVPB ONE (15:00)
[2017-12-06] MEDS ORDERED: NS 0.9% IVPB ONE (15:00)
[2017-12-06 15:30] VITALS: BP 112/51
== END 2017-12-12 ==
LOC: ONC 13:00
PROVIDERS: ATTEND Internal Medicine Hematology
DX: Z51.11 Encounter for antineoplastic chemotherapy (principal); C56.2 Malignant neoplasm of left ovary; D69.59 Other secondary thrombocytopenia; Z79.899 Other long term (current) drug therapy; E86.0 Dehydration; R53.83 Other fatigue; R53.1 Weakness
CPT/HCPCS: 36415; 71045; 74018; 85025; 85027; 86304; 96361; 96367; 96372; 96374; 96375; 96413; 99212; A4216; J1100; J1642; J2405; J2469; J2550; J2997; J3420; J7030; J7040; J7050; J9201; 82040; 82247; 82310; 82374; 82435; 82565; 82947; 84075; 84132; 84155; 84295; 84450; 84460; 84520; 96360

== ENCOUNTER → 2017-12-06 | Outpatient (CLI) | payer BC ==
[2017-11-28 09:09] VITALS: BMI 19.5
--- NOTE | 2017-12-06 13:26 | RADIOLOGY IMAGING REPORT ---
FACILITY: [facility] [place] PATIENT NAME: Caroilna Hill : 1955 MR: [id number] V: [id number] EXAM DATE: ORDERING PHYSICIAN: LIZ WALLACE TECHNOLOGIST: Location: [facility] Patient: Carolina Hill : 1955 Visit/Account:[id number] Date of Sevice: 12/06/2017 Exam type: CHEST PA AND LAT History: Left pleural effusion Comparison: November 28, 2017. Findings: NG tube no longer seen. Implanted right-sided port appears unchanged. There has been a decrease in the small left pleural effusion. Linear stranding in the lung bases remains relatively unchanged. T he cardiac silhouette is normal in size. IMPRESSION: 1. NG tube no longer seen Small pleural effusion is partially decreased in size Linear stranding lower lung jordan appears unchanged may represent discoid atelectasis or scarring Report Dictated By: Katie Alvarado MD at 12/06/2017 1:20 PM Report E-Signed By: Katie Alvarado MD at 12/06/2017 1:22 PM WSN:[email or web address]
== END ==
LOC: RAD 11:44
PROVIDERS: ATTEND Surgery
DX: J90 Pleural effusion, not elsewhere classified (principal); R91.8 Other nonspecific abnormal finding of lung field
CPT/HCPCS: 71046

== ENCOUNTER → 2017-12-26 | Outpatient (CLI) | payer BC ==
[2017-11-28 09:09] VITALS: BMI 19.5
[~2017-12-26] MED LIST changes: -ALTEPLASE RECOMB 2 MG VIAL IVP PRN; -CYANOCOBALAMIN 1000MCG/ML VIAL IM ONLY ONE; -D5W IVPB ONE; -DEXTROSE 5%(*) 100 ML BAG 100 ML IVPB PRN; -GEMCITABINE IVPB ONE; -HEPARIN FLSH (PORT) 500 UN/5ML IVP PRN; -LIDOCAINE/SOD BICARB 8.4% SYR ID PRN; -NS 0.9% IVPB ONE; -NS(*) 0.9% 100 ML BAG 100 ML IVPB PRN; -NS(*) 0.9% 500 ML BAG 500 ML IV PRN; -ONDANSETRON 4 MG/2 ML VIAL IVP ONE; -ONDANSETRON 4 MG/2 ML VIAL IVP PRN; -PROMETHAZINE 25 MG/ML 1 ML AMP IVP PRN; -WATER STERILE 10 ML VIAL IVP PRN; -[UNRECOGNIZED DRUG - OTHER] IVPB ONE; -[UNRECOGNIZED DRUG - OTHER] IVPB ONE
--- NOTE | 2017-12-26 13:45 | RADIOLOGY IMAGING REPORT ---
FACILITY: [facility] - [place], [place] PATIENT NAME: Carolina Hill : 1955 MR: [id number] V: [id number] EXAM DATE: ORDERING PHYSICIAN: ROXANA MONTANEZ TECHNOLOGIST: Location: [facility] - [place] Patient: Carolina Hill : 1955 Visit/Account:[id number] Date of Sevice: 12/26/2017 Exam type: CHEST PA AND LAT History: Chest pressure on left side history of pleural effusion Comparison: December 06, 2017. Findings: There has been interval development of a moderate right pleural effusion. Small left pleural effusio n remains unchanged. Linear stranding in the left lung base remains unchanged. There is probable in creased airspace consolidation right lung base. The cardiac silhouette is normal in size. There is an implanted right sided port the distal tip projects over the superior vena cava. Large calcificati on in the right upper quadrant of abdomen may represent a large gallstone. IMPRESSION: 1. Interval development of a moderate right pleural effusion Small left pleural effusion and left basilar stranding unchanged Airspace consolidation right lung base is suspected Large calcification right upper quadrant of abdomen may represent a gallstone Report Dictated By: Katie Alvarado MD at 12/26/2017 1:31 PM Report E-Signed By: Katie Alvarado MD at 12/26/2017 1:41 PM WSN:[email or web address]
--- NOTE | 2017-12-26 15:21 | RADIOLOGY IMAGING REPORT ---
FACILITY: [facility] - [place] PATIENT NAME: Carolina Hill : 1955 MR: [id number] V: [id number] EXAM DATE: ORDERING PHYSICIAN: ROXANA MONTANEZ TECHNOLOGIST: [place] [facility] [place] : 1955 Visit/Account:[id number] Date of Sevice: 12/26/2017 Exam type: THORACENTESIS History: Right pleural effusion Comparison: Chest PA and lateral performed earlier in the day. Findings: Multiple sonographic images of the right pleural space demonstrate an at least moderate right pleural effusion. The patient's skin was marked for thoracentesis to be performed by Dr. Montanez. Please s ee Dr. Montanez report for complete details IMPRESSION: 1. As above Report Dictated By: Katie Alvarado MD at 12/26/2017 3:15 PM Report E-Signed By: Katie Alvaardo MD at 12/26/2017 3:17 PM WSN:[email or web address]
--- NOTE | 2017-12-26 16:00 | RADIOLOGY IMAGING REPORT ---
FACILITY: [facility] - [place] PATIENT NAME: Carolina Hill : 1955 MR: [id number] V: [id number] EXAM DATE: ORDERING PHYSICIAN: ROXANA MONTANEZ TECHNOLOGIST: Location: [facility] - [place] Patient: Carolina Hill : 1955 Visit/Account:[id number] Date of Sevice: 12/26/2017 Exam type: CHEST PA AND LAT History: S/P thoracentesis Comparison: December earlier in the day. Findings: There is been a marked reduction in size of the right pleural effusion which now appears very small o ne compared to the prior study performed earlier today. There is no evidence of a pneumothorax. The re is improved airspace consolidation right lung base with only minimal linear stranding now noted. Small left pleural effusion and small amount of left basilar stranding is unchanged. The cardiac suzanne houette is normal in size. The right sided implantable port unchanged IMPRESSION: 1. There is been a marked reduction in the right pleural effusion when compared to the image earlier in the day with only a tiny right pleural effusion remaining. No pneumothorax Interval improvement of the right basilar airspace consolidation Small left pleural effusion and linear stranding left lung base unchanged Report Dictated By: Katie Alvarado MD at 12/26/2017 3:54 PM Report E-Signed By: Katie Alvarado MD at 12/26/2017 3:56 PM WSN:[email or web address]
== END ==
LOC: RAD 12:29
PROVIDERS: ATTEND Surgery
DX: J90 Pleural effusion, not elsewhere classified (principal); R91.8 Other nonspecific abnormal finding of lung field
CPT/HCPCS: 71046; 82042; 82150; 82945; 83986; 84157; 88305; 89050

== ENCOUNTER → 2018-01-09 | Outpatient (CLI) | payer BC ==
[2017-11-28 09:09] VITALS: BMI 19.5
--- NOTE | 2018-01-09 13:45 | RADIOLOGY IMAGING REPORT ---
FACILITY: [facility] - [place] PATIENT NAME: Carolina Hill : 1955 MR: [id number] V: [id number] EXAM DATE: ORDERING PHYSICIAN: ROXANA MONTANEZ TECHNOLOGIST: Location: [facility] Patient: Carolina Hill : 1955 Visit/Account:[id number] Date of Sevice: 01/09/2018 Exam type: CHEST PA AND LAT History: Follow-up right pleural effusion, Comparison: January 03, 2018. Findings: Right pleural effusion appears relatively unchanged. Small left pleural effusion is slightly improve d. Coarse linear stranding in the lung bases also unchanged. The cardiac silhouette is normal in si ze. Implanted right-sided port appears unchanged in position. Laminated calcination right upper radha drant of abdomen again noted likely a gallstone IMPRESSION: 1. Small right pleural effusion relatively unchanged Small left pleural effusion slightly improved Linear stranding the lung bases which may represent scarring versus atelectasis is unchanged Report Dictated By: Katie Alvarado MD at 01/09/2018 1:40 PM Report E-Signed By: Katie Alvarado MD at 01/09/2018 1:41 PM WSN:[email or web address]
== END ==
LOC: RAD 12:11
PROVIDERS: ATTEND Surgery
DX: J90 Pleural effusion, not elsewhere classified (principal)
CPT/HCPCS: 71046

== ENCOUNTER → 2018-01-18 | Outpatient (CLI) | payer BC ==
[2017-11-28 09:09] VITALS: BMI 19.5
[~2018-01-18] MED LIST changes: +CALC500T6 PO; +DOCU100T19 PO
--- NOTE | 2018-01-18 10:44 | RADIOLOGY IMAGING REPORT ---
FACILITY: [facility] PATIENT NAME: Carolina Hill : 1955 MR: [id number] V: [id number] EXAM DATE: ORDERING PHYSICIAN: ROXANA MONTANEZ TECHNOLOGIST: Location: [facility] - [place] Patient: Carolina Hill : 1955 Visit/Account:[id number] Date of Sevice: 01/18/2018 Exam type: CHEST PA AND LAT History: Left-sided chest pain, history of bilateral pleural effusions and shortness of breath Comparison: January 09, 2018. Findings: There has been a slight increase in the small bilateral pleural effusions, right greater than left. Is also been a slight increase in the right basilar consolidation which likely represents atelectasis . There is no evidence of pneumothorax or pneumomediastinum. The cardiac silhouette is normal in si ze. There Is an implanted right-sided port distal tip projects over the superior vena cava. Large c alcination right upper quadrant of abdomen likely represents a gallstone. IMPRESSION: 1. Slight increase in the small bilateral pleural effusions small amount of by basilar atelectasis Report Dictated By: Katie Alvarado MD at 01/18/2018 10:38 AM Report E-Signed By: Katie Alvarado MD at 01/18/2018 10:41 AM WSN:[email or web address]
== END ==
LOC: RAD 09:48
PROVIDERS: ATTEND Surgery
DX: J90 Pleural effusion, not elsewhere classified (principal); J98.11 Atelectasis; Z95.828 Presence of other vascular implants and grafts
CPT/HCPCS: 71046

== ENCOUNTER 2018-01-21 15:27 | Emergency (ER) | payer BC ==
[2017-11-28 09:09] VITALS: Wt 58.8 kg
[2018-01-21] MEDS ORDERED: NS(*) 0.9% 1000 ML BAG 1,000 ML IV ONE (16:10)
--- NOTE | 2018-01-21 16:20 | EKG ---
[place] [facility] [place] NAME: OTTONIEL JO : [id number] MR: [id number] V: [id number] EXAM DATE: ORDERING PHYSICIAN: MARGO ABEL TECHNOLOGIST: KAREL Hurst Reason : ABD. PAIN Blood Pressure : / mmHG Vent. Rate : 108 BPM Atrial Rate : 108 BPM P-R Int : 128 ms QRS Dur : 074 ms QT Int : 298 ms P-R-T Axes : 035 078 027 degrees QTc Int : 399 ms Sinus tachycardia Nonspecific T wave abnormality Abnormal ECG When compared with ECG of 28-MAY-2015 07:20, QRS voltage has decreased QT has shortened Confirmed by ROXANA TELLEZ ([id number]) on 01/22/2018 4:13:21 AM Referred By: PAGE Confirmed By:ROXANA TELLEZ
--- NOTE | 2018-01-21 16:38 | RADIOLOGY IMAGING REPORT ---
FACILITY: [facility] - [place] PATIENT NAME: Carolina Hill : 1955 MR: [id number] V: [id number] EXAM DATE: ORDERING PHYSICIAN: MARGO ABEL TECHNOLOGIST: Location: [facility] Patient: Carolina Hill : 1955 Visit/Account:[id number] Date of Sevice: 01/21/2018 CHEST SINGLE AP Indication: Chemotherapy on Sunday not feeling well. Stomach pain.. Comparison: 01/18/2018. Findings: Cardiomediastinal silhouette and pulmonary vessels within normal limits. Right Port-A-Cath in place t ip in SVC and unchanged. No focal consolidation. There is persistent small bilateral pleural effusions. There are some patchy changes to the bases which could be due to atelectasis with some discoid atelectasis or scarring in t he right base. The left base interstitial changes and mildly more prominent. The mid to upper lung fi elds are clear. No indication of pneumothorax or nodule. Upper abdomen is unremarkable with gallstones still identified. No acute bony abnormality. IMPRESSION: 1. Persistent small bilateral pleural effusions with atelectatic change seen in the bases. There is n o focal infiltrate. The interstitium of the left base is slightly more prominent and could be due to early pneumonitis. Report Dictated By: Armen Vee at 01/21/2018 4:32 PM Report E-Signed By: Armen Vee at 01/21/2018 4:34 PM WSN:[id number]
[2018-01-21 16:39] LABS: PLATELET COUNT, AUTOMATED 266 K/uL (150-450)
--- NOTE | 2018-01-21 17:54 | ER Report ---
History and Physical Time Seen By MD: 17:00 Hx. of Stated Complaint: PT STATES PRIMARY PROVIDER SUSPECTS A SMALL BOWEL OBSTRUCTION, LAST BM WAS SUNDAY, NO PAIN HPI/ROS 62-year-old female has a history of ovarian cancer with metastasis, has had an oopharectomy in the past is seen by the cancer center has had a history of small bowel obstruction 2 had a colostomy for a period of time reversal of that is not eating well has felt nauseated no bowel movement since Sunday is sent here to rule out obstruction Allergies: Coded Allergies: niraparib (Verified Adverse Reaction, Intermediate, sores on mouth, ) Home Meds Reported Medications Docusate Sodium (STOOL SOFTENER) 100 Mg Tablet, 100 MG PO PRN 01/21/18 Calcium Carbonate (CALCIUM) 500 Mg Tablet, 500 MG PO DAILY 01/21/18 Cyanocobalamin (Vitamin B-12) (B-12) 500 Mcg Tab.rapdis, 50 MCG PO DAILY 11/20/17 Mu-Vits-Min Th/Lycopene/Lutein (CENTRUM SILVER TABLET) 1 Each Tablet, 1 EACH PO DAILY 11/20/17 Past Medical/Surgical History Ovarian cancer with metastasis, oophorectomy, small bowel obstructions 2, colostomy with reversal Reviewed Nurses Notes: Yes Old Medical Records Reviewed: Yes Hx Smoking: No Smoking Status: Never Smoker Exposure to Second Hand Smoke?: No Hx Substance Use Disorder: No Hx Alcohol Use: No Constitutional Vital Sign - Last 24 Hours 01/21/18 01/21/18 01/21/18 01/21/18 15:27 15:38 15:42 15:42 Temp 97.6 Pulse ??? 114 110 Resp 24 18 B/P (MAP) 107/69 (82) 107/69 Pulse Ox 90 90 O2 Delivery Room Air 01/21/18 01/21/18 01/21/18 01/21/18 15:57 16:12 16:20 16:30 Pulse 114 ??? Resp 32 B/P (MAP) 114/57 (76) 111/56 (74) 01/21/18 01/21/18 01/21/18 01/21/18 16:42 16:57 17:00 17:12 Pulse 106 109 116 B/P (MAP) 108/40 (62) Pulse Ox 87 80 3/501/21/18 01/21/18 01/21/18 17:17 17:32 17:47 18:00 Pulse ? 105 B/P (MAP) 124/54 (77) Pulse Ox 78 83 01/21/18 01/21/18 01/21/18 01/21/18 18:02 18:17 18:30 18:32 Pulse 104 ??? 104 B/P (MAP) 112/46 (68) Pulse Ox 85 85 95 01/21/18 01/21/18 01/21/18 01/21/18 18:47 19:00 19:02 19:59 Temp 98.5 Pulse 102 101 B/P (MAP) 106/49 (68) Pulse Ox 97 98 Physical Exam 62-year-old female alert and oriented mild distress HEENT head is normocephalic/ atraumatic tympanic membranes are non-reddened throat is non-reddened acus membranes are moist neck is supple no JVD heart rate is regular no murmurs rubs and gallops lungs are clear to auscultation abdomen slightly swollen is bowel sounds 4 quadrants no pain to palpation Medical Decision Making Data Points Result Diagram: 01/21/18 1630 01/21/18 1630 Laboratory Hematology Test 01/21/18 16:30 01/21/18 17:20 Red Blood Count 3.04 M/uL (4.17-5.56) Mean Corpuscular Volume 94.4 fL (80.0-96.0) Mean Corpuscular Hemoglobin 30.6 pg (26.0-33.0) Mean Corpuscular Hemoglobin Concent 32.4 g/dL (32.0-36.0) Red Cell Distribution Width 20.2 % (11.5-14.5) Mean Platelet Volume 8.9 fL (7.2-11.1) Neutrophils (%) (Auto) 90.2 % (39.4-72.5) Lymphocytes (%) (Auto) 7.7 % (17.6-49.6) Monocytes (%) (Auto) 0.7 % (4.1-12.4) Eosinophils (%) (Auto) 1.0 % (0.4-6.7) Basophils (%) (Auto) 0.4 % (0.3-1.4) Nucleated RBC Relative Count (auto) 0.0 /100WBC Neutrophils # (Auto) 6.1 K/uL (2.0-7.4) Lymphocytes # (Auto) 0.5 K/uL (1.3-3.6) Monocytes # (Auto) 0.0 K/uL (0.3-1.0) Eosinophils # (Auto) 0.1 K/uL (0.0-0.5) Basophils # (Auto) 0.0 K/uL (0.0-0.1) Nucleated RBC Absolute Count (auto) 0.00 K/uL Sodium Level 137 mmol/L (137-145) Potassium Level 3.5 mmol/L (3.5-5.0) Chloride Level 104 mmol/L (98-107) Carbon Dioxide Level 24 mmol/L (22-31) Blood Urea Nitrogen 16 mg/dl (7-18) Creatinine 0.50 mg/dl (0.52-1.04) Glomerular Filtration Rate Calc > 60.0 Random Glucose 101 mg/dl (75-110) Lactate 1.5 mmol/L (0.7-2.1) Calcium Level 8.1 mg/dl (8.4-10.2) Total Bilirubin 0.9 mg/dl (0.2-1.3) Aspartate Amino Transf (AST/SGOT) 98 U/L (0-35) Alanine Aminotransferase (ALT/SGPT) 81 U/L (0-56) Alkaline Phosphatase 255 U/L (0-126) Total Protein 5.7 gm/dl (6.3-8.2) Albumin 2.6 g/dl (3.5-5.0) Amylase Level < 30 U/L (0-110) Lipase 52 U/L (23-300) Urine Color Yellow Urine Clarity Clear Urine pH 6.0 pH (4.8-9.5) Urine Specific Malone 1.020 Urine Protein 30 mg/dL (NEGATIVE) Urine Glucose (UA) Negative mg/dL (NEGATIVE) Urine Ketones Negative mg/dL (NEGATIVE) Urine Blood Negative (NEGATIVE) Urine Nitrite Negative (NEGATIVE) Urine Bilirubin Small (NEGATIVE) Urine Urobilinogen 1.0 mg/dL (0.2-1.9) Urine Leukocyte Esterase Negative (NEGATIVE) Urine RBC <1 /HPF (0-2/HPF) Urine WBC 1 /HPF (0-5/HPF) Urine Squamous Epithelial Cells Many /LPF (NONE-FEW) Urine Amorphous Crystals Few /HPF Urine Bacteria Negative /HPF (NONE-FEW) Urine Hyaline Casts Few /LPF (NONE-FEW) Urine Mucus Few /HPF (NONE-FEW) Chemistry Test 01/21/18 16:30 01/21/18 17:20 White Blood Count 6.7 k/uL (4.5-11.0) Red Blood Count 3.04 M/uL (4.17-5.56) Hemoglobin 9.3 g/dL (12.0-16.0) Hematocrit 28.7 % (34.0-47.0) Mean Corpuscular Volume 94.4 fL (80.0-96.0) Mean Corpuscular Hemoglobin 30.6 pg (26.0-33.0) Mean Corpuscular Hemoglobin Concent 32.4 g/dL (32.0-36.0) Red Cell Distribution Width 20.2 % (11.5-14.5) Platelet Count 266 K/uL (150-450) Mean Platelet Volume 8.9 fL (7.2-11.1) Neutrophils (%) (Auto) 90.2 % (39.4-72.5) Lymphocytes (%) (Auto) 7.7 % (17.6-49.6) Monocytes (%) (Auto) 0.7 % (4.1-12.4) Eosinophils (%) (Auto) 1.0 % (0.4-6.7) Basophils (%) (Auto) 0.4 % (0.3-1.4) Nucleated RBC Relative Count (auto) 0.0 /100WBC Neutrophils # (Auto) 6.1 K/uL (2.0-7.4) Lymphocytes # (Auto) 0.5 K/uL (1.3-3.6) Monocytes # (Auto) 0.0 K/uL (0.3-1.0) Eosinophils # (Auto) 0.1 K/uL (0.0-0.5) Basophils # (Auto) 0.0 K/uL (0.0-0.1) Nucleated RBC Absolute Count (auto) 0.00 K/uL Glomerular Filtration Rate Calc > 60.0 Lactate 1.5 mmol/L (0.7-2.1) Calcium Level 8.1 mg/dl (8.4-10.2) Total Bilirubin 0.9 mg/dl (0.2-1.3) Aspartate Amino Transf (AST/SGOT) 98 U/L (0-35) Alanine Aminotransferase (ALT/SGPT) 81 U/L (0-56) Alkaline Phosphatase 255 U/L (0-126) Total Protein 5.7 gm/dl (6.3-8.2) Albumin 2.6 g/dl (3.5-5.0) Amylase Level < 30 U/L (0-110) Lipase 52 U/L (23-300) Urine Color Yellow Urine Clarity Clear Urine pH 6.0 pH (4.8-9.5) Urine Specific Malone 1.020 Urine Protein 30 mg/dL (NEGATIVE) Urine Glucose (UA) Negative mg/dL (NEGATIVE) Urine Ketones Negative mg/dL (NEGATIVE) Urine Blood Negative (NEGATIVE) Urine Nitrite Negative (NEGATIVE) Urine Bilirubin Small (NEGATIVE) Urine Urobilinogen 1.0 mg/dL (0.2-1.9) Urine Leukocyte Esterase Negative (NEGATIVE) Urine RBC <1 /HPF (0-2/HPF) Urine WBC 1 /HPF (0-5/HPF) Urine Squamous Epithelial Cells Many /LPF (NONE-FEW) Urine Amorphous Crystals Few /HPF Urine Bacteria Negative /HPF (NONE-FEW) Urine Hyaline Casts Few /LPF (NONE-FEW) Urine Mucus Few /HPF (NONE-FEW) Urinalysis Test 01/21/18 17:20 Urine Color Yellow Urine Clarity Clear Urine pH 6.0 pH (4.8-9.5) Urine Specific Malone 1.020 Urine Protein 30 mg/dL (NEGATIVE) Urine Glucose (UA) Negative mg/dL (NEGATIVE) Urine Ketones Negative mg/dL (NEGATIVE) Urine Blood Negative (NEGATIVE) Urine Nitrite Negative (NEGATIVE) Urine Bilirubin Small (NEGATIVE) Urine Urobilinogen 1.0 mg/dL (0.2-1.9) Urine Leukocyte Esterase Negative (NEGATIVE) Urine RBC <1 /HPF (0-2/HPF) Urine WBC 1 /HPF (0-5/HPF) Urine Squamous Epithelial Cells Many /LPF (NONE-FEW) Urine Amorphous Crystals Few /HPF Urine Bacteria Negative /HPF (NONE-FEW) Urine Hyaline Casts Few /LPF (NONE-FEW) Urine Mucus Few /HPF (NONE-FEW) EKG/Imaging Imaging FACILITY: [facility] - [place] PATIENT NAME: Carolina Hill : 1955 MR: [id number] V: [id number] EXAM DATE: ORDERING PHYSICIAN: MARGO ABEL TECHNOLOGIST: Location: [facility] Patient: Carolina Hill : 1955 Visit/Account:[id number] Date of Sevice: 01/21/2018 ABDOMEN/PELVIS W/O CONTRAST HISTORY: ovarian cancer r/o bowel obstruction TECHNIQUE: Axial images acquired through the abdomen/pelvis. Coronal and sagittal reformatting also performed. No IV contrast administered. Dose Lowering Technique One of the following dose optimization techniques was utilized in the performance of this exam: Automated exposure control; adjustment of the mA and/ or kV according to the patient's size; or use of an iterative reconstruction technique. Specific details can be referenced in the facility's radiology CT exam operational policy. COMPARISON: November 18, 2017 FINDINGS: Visualized lung bases: Is coarse septal thickening in the lingula and dense airspace consolidation with air bronchograms in the left lower lobe the previously noted left pleural effusion appears smaller. There is now a moderate posterior layering right pleural effusion with probable compressive atelectasis in the adjacent right lower lobe Hepatobiliary: There are numerous gallstones. There are multiple hypoattenuating masses in the liver not present previously these are not well characterized due to the lack of contrast largest mass measures approximate 3.9 cm. These masses do appear to be cystic although given their interval occurrence since November 18, 2017 cystic metastases are of concern Spleen: Negative. Adrenals: Negative. Pancreas: Atrophic Kidneys ureters and bladder: No evidence of urolithiasis or hydronephrosis Genitalia: Hysterectomy GI: There is an anastomosis in the transverse colon. the greater curvature the stomach is severely compressed by a large septated cystic structure appears to be within the lesser sac measuring approximately 15.7 x 10.5 x 7.6 cm. there is a moderate amount of abdominal and pelvic ascites as well Vessels/spaces/nodes: Please see above discussion. There are numerous small shotty retroperitoneal lymph nodes. There are mild vascular calcifications Bones/soft tissues: There are spondylotic changes of the lumbar spine. Mild compression of superior plate of L4 appears stable Additional findings: None pertinent. IMPRESSION: Previously noted left pleural effusion appears decreased in size And now appears small although there is a large amount of airspace consolidation with air bronchograms in the left lower lobe which may represent atelectasis or infiltrate. There is now a moderate posterior limb right pleural effusion with compressive atelectasis the right lower lobe Cholelithiasis although no evidence of biliary ductal dilatation. There are multiple hypoattenuating masses in the liver not present on November 18, 2017. Some of these appear cystic although given the interval appearance findings are extremely concerning for cystic metastases Moderate amount of abdominal pelvic ascites There is a large septated fluid collection in the lesser sac producing severe extrinsic compression on the greater curvature the stomach.. Report Dictated By: Katie Alvarado MD at 01/21/2018 5:48 PM Report E-Signed By: Katie Alvarado MD at 01/21/2018 6:04 PM WSN:[email or web address] ED Course/Re-evaluation Clinical Indication for ER IV: Hydration ED Course Received a liter of fluid in the emergency room I did talk to Karina Paula about this patient she asked for me to call the surgeon she is seeing Dr. Montes in the past to help her drain fluid with her pleural effusion and her ascites [place] Dr. Cartwright is on-call and he asked me to have patient follow up tomorrow in the clinic talking with the he is asking if is any way we could admit her did talk to Dr. Bettencourt the hospitalist he does not feel she meets criteria I will give her additional 500 mL of fluid in the emergency room have her see Dr. Montes in clinic tomorrow Re-evaluation Patient remains week is well-hydrated with fluid being given in the emergency room did drink some apple juice and has had no nausea without is okay taking her home with follow up Dr. 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 Montes tomorrow call the clinic for an appointment time Problem Qualifiers MARGO ABEL Jan 21, 2018 17:54
--- NOTE | 2018-01-21 18:08 | RADIOLOGY IMAGING REPORT ---
FACILITY: [facility] - [place] PATIENT NAME: Carolina Hill : 1955 MR: [id number] V: [id number] EXAM DATE: ORDERING PHYSICIAN: MARGO ABEL TECHNOLOGIST: Location: [facility] Patient: Carolina Hill : 1955 Visit/Account:[id number] Date of Sevice: 01/21/2018 ABDOMEN/PELVIS W/O CONTRAST HISTORY: ovarian cancer r/o bowel obstruction TECHNIQUE: Axial images acquired through the abdomen/pelvis. Coronal and sagittal reformatting also performed. No IV contrast administered. Dose Lowering Technique One of the following dose optimization techniques was utilized in the performance of this exam: Autom ated exposure control; adjustment of the mA and/or kV according to the patient's size; or use of an i terative reconstruction technique. Specific details can be referenced in the facility's radiology C T exam operational policy. COMPARISON: November 18, 2017 FINDINGS: Visualized lung bases: Is coarse septal thickening in the lingula and dense airspace consolidation w ith air bronchograms in the left lower lobe the previously noted left pleural effusion appears smalle r. There is now a moderate posterior layering right pleural effusion with probable compressive atele ctasis in the adjacent right lower lobe Hepatobiliary: There are numerous gallstones. There are multiple hypoattenuating masses in the liver not present previously these are not well evan acterized due to the lack of contrast largest mass measures approximate 3.9 cm. These masses do appe ar to be cystic although given their interval occurrence since November 18, 2017 cystic metastases ar e of concern Spleen: Negative. Adrenals: Negative. Pancreas: Atrophic Kidneys ureters and bladder: No evidence of urolithiasis or hydronephrosis Genitalia: Hysterectomy GI: There is an anastomosis in the transverse colon. the greater curvature the stomach is severely compressed by a large septated cystic structure appear s to be within the lesser sac measuring approximately 15.7 x 10.5 x 7.6 cm. there is a moderate amou nt of abdominal and pelvic ascites as well Vessels/spaces/nodes: Please see above discussion. There are numerous small shotty retroperitoneal lymph nodes. There are mild vascular calcifications Bones/soft tissues: There are spondylotic changes of the lumbar spine. Mild compression of superior plate of L4 appears stable Additional findings: None pertinent. IMPRESSION: Previously noted left pleural effusion appears decreased in size And now appears small although there is a large amount of airspace consolidation with air bronchogram s in the left lower lobe which may represent atelectasis or infiltrate. There is now a moderate posterior limb right pleural effusion with compressive atelectasis the right lower lobe Cholelithiasis although no evidence of biliary ductal dilatation. There are multiple hypoattenuating masses in the liver not present on November 18, 2017. Some of the se appear cystic although given the interval appearance findings are extremely concerning for cystic metastases Moderate amount of abdominal pelvic ascites There is a large septated fluid collection in the lesser sac producing severe extrinsic compression o n the greater curvature the stomach.. Report Dictated By: Katie Alvarado MD at 01/21/2018 5:48 PM Report E-Signed By: Katie Alvarado MD at 01/21/2018 6:04 PM WSN:[email or web address]
[2018-01-21 19:00] VITALS: BP 106/49
[2018-01-21] MEDS ORDERED: NS(*) 0.9% 500 ML BAG 500 ML IV ONE (19:00)
[2018-01-21] MEDS ORDERED: HEPARIN FLSH (PORT) 500 UN/5ML IVP ONE (20:00)
== END 2018-01-21 20:30 | disposition home or self-care (01) ==
LOC: ER 15:39
DX: R18.8 Other ascites (principal); C56.1 Malignant neoplasm of right ovary; R94.31 Abnormal electrocardiogram [ECG] [EKG]; R00.0 Tachycardia, unspecified; K80.80 Other cholelithiasis without obstruction; R16.0 Hepatomegaly, not elsewhere classified; J98.11 Atelectasis
CPT/HCPCS: 71045; 74176; 81001; 82150; 83605; 83690; 85025; 93005; 96360; 96361; 99284; A4353; J1642; J7030; J7040; 82040; 82247; 82310; 82374; 82435; 82565; 82947; 84075; 84132; 84155; 84295; 84450; 84460; 84520

== ENCOUNTER → 2018-01-28 | Outpatient (CLI) | payer BC ==
[2017-11-28 09:09] VITALS: BMI 19.5
[~2018-01-28] MED LIST changes: +FURO20TA19 PO; +MOM PO
--- NOTE | 2018-01-28 16:39 | RADIOLOGY IMAGING REPORT ---
FACILITY: [facility] PATIENT NAME: Carolina Hill : 1955 MR: [id number] V: [id number] EXAM DATE: ORDERING PHYSICIAN: ROXANA MONTANEZ TECHNOLOGIST: Location: [facility] Patient: Carolina Hill : 1955 Visit/Account:[id number] Date of Sevice: 01/28/2018 Exam type: CHEST PA AND LAT History: Pleural effusion Comparison: January 21, 2018. Findings: There is a moderate right pleural effusion slightly increased when compared the prior study. Underly ing airspace consolidation right lung base is suspected. Small left pleural effusion unchanged. Coa rse peribronchial thickening and linear changes in the left lung base appears similar. Cardiac silho uette is normal. There is an implanted right-sided port distal tip projects over the superior vena c carroll. Large laminated gallstone is present right upper quadrant of abdomen IMPRESSION: 1. Right pleural effusion is increased in size and now appears moderate with underlying airspace con solidation the right lung base is suspected Small left pleural effusion unchanged Coarse peribronchial thickening in the left lung base appears similar to the prior study Report Dictated By: Katie Alvarado MD at 01/28/2018 4:22 PM Report E-Signed By: Katie Alvarado MD at 01/28/2018 4:34 PM WSN:[email or web address]
== END ==
LOC: RAD 15:49
PROVIDERS: ATTEND Surgery
DX: J90 Pleural effusion, not elsewhere classified (principal); R91.8 Other nonspecific abnormal finding of lung field
CPT/HCPCS: 71046

== ENCOUNTER → 2018-01-30 | Outpatient (CLI) | payer BC ==
[2017-11-28 09:09] VITALS: BMI 19.5
[~2018-01-30] MED LIST changes: -FURO20TA19 PO; -MOM PO
--- NOTE | 2018-01-30 16:22 | RADIOLOGY IMAGING REPORT ---
FACILITY: [facility] PATIENT NAME: Carolina Hill : 1955 MR: [id number] V: [id number] EXAM DATE: ORDERING PHYSICIAN: ROXANA MONTANEZ TECHNOLOGIST: Location: [facility] Patient: Carolina Hill : 1955 Visit/Account:[id number] Date of Sevice: 01/30/2018 ABDOMEN/PELVIS CT W/O CONTRAST HISTORY: Ascites TECHNIQUE: Axial images acquired through the abdomen/pelvis. Coronal and sagittal reformatting also performed. No IV contrast administered. Dose Lowering Technique One of the following dose optimization techniques was utilized in the performance of this exam: Autom ated exposure control; adjustment of the mA and/or kV according to the patient's size; or use of an i terative reconstruction technique. Specific details can be referenced in the facility's radiology C T exam operational policy. COMPARISON: January 21, 2018 FINDINGS: Visualized lung bases: With small posterior layering left pleural effusion and coarse septal thicken ing in density airspace consolidation in the left lower lobe appears similar to the prior study. The re Is a small to moderate posterior layering right pleural effusion although appears partially decrea sed in size. The degree of airspace consolidation with air bronchograms in the medial inferior right middle lobe in the right lower lobe appear slightly increased Hepatobiliary: Numerous gallstones again seen. Multiple hypoattenuating masses are again seen throughout the liver some of increase in size. The la rgest now measures approximately 4.7 cm in diameter Spleen: Accessory splenule Adrenals: Negative. Pancreas: Negative. Kidneys ureters and bladder: No evidence of hydronephrosis or hydroureter Genitalia: Post surgical changes from hysterectomy GI: There is an anastomosis in the transverse colon. There is a moderate amount of fecal material s een in the right-sided colon proximal to the anastomosis air-fluid levels are seen downstream in the transverse colon consistent with liquid stool. The second portion the duodenum is moderately distend ed with fluid Vessels/spaces/nodes: There is a large septated heterogeneous collection in the lesser sac producing severe extrinsic mass effect on the greater curvature the stomach. This has increased in size and n ow measures 16.3 x 8.3 x 8.4 cm by There is a moderate amount of ascites throughout the abdomen and pelvis similar to the prior study . There is soft tissue fullness the right side of the lower pelvis just anterior to the right-sided t he rectum measuring 3.2 x 2.9 x 3.1 cm could represent local tumor recurrence or metastatic deposit Bones/soft tissues: Spondylotic changes lower lumbar spine mild compression fracture of the super en dplate of L4 Additional findings: None pertinent. IMPRESSION: Small posterior layering left pleural effusion and coarse septal thickening and dense airspace consol idation left lower lobe appears similar to the prior study Small to moderate posterior layering right pleural effusion appears partially decreased in size. The degree of airspace consolidation within the right middle lobe and right lower lobe appears slightly increased and could represent atelectasis and/or developing infiltrate Cholelithiasis Multiple hypoattenuating masses are seen throughout the liver some of which have increased in size ex tremely concerning for metastases There is a moderate amount of fecal material in the colon proximal to the anastomosis in the transver se colon. Air-fluid levels demonstrating in the transverse colon consistent with liquid stool.. There are severe compression on the greater curvature the stomach secondary to a large septated heter ogeneous collection in the lesser sac which is slightly increased in size as described above Moderate amount of abdominal pelvic ascites unchanged There is a soft tissue fullness right side of the lower pelvis just anterior to the right-sided the r ectum which could represent local tu or recurrence versus a metastatic deposit . A message was left for ROXANA MONTANEZ at 01/30/2018 4:18 PM. Report Dictated By: Katie Alvarado MD at 01/30/2018 3:57 PMReport E-Signed By: Katie Alvarado MD at 01/30/2018 4:19 PM WSN:[email or web address]
== END ==
LOC: RAD 15:19
PROVIDERS: ATTEND Surgery
DX: J90 Pleural effusion, not elsewhere classified (principal); K80.20 Calculus of gallbladder without cholecystitis without obstruction; R16.0 Hepatomegaly, not elsewhere classified; Z90.79 Acquired absence of other genital organ(s); R18.8 Other ascites; R19.00 Intra-abdominal and pelvic swelling, mass and lump, unspecified site; M47.896 Other spondylosis, lumbar region
CPT/HCPCS: 74176

== ENCOUNTER → 2018-01-30 | Outpatient (CLI) | payer BC ==
[2017-11-28 09:09] VITALS: BMI 19.5
[~2018-01-30] MED LIST changes: +FURO20TA19 PO; +MOM PO
--- NOTE | 2018-01-30 16:00 | RADIOLOGY IMAGING REPORT ---
FACILITY: [facility] PATIENT NAME: Carolina Hill : 1955 MR: [id number] V: [id number] EXAM DATE: ORDERING PHYSICIAN: ROXANA MONTANEZ TECHNOLOGIST: Location: [facility] Patient: Carolina Hill : 1955 Visit/Account:[id number] Date of Sevice: 01/30/2018 Exam type: CHEST SPECIAL VIEW History: Post right thoracentesis Comparison: January 28, 2018. Findings: There is been a partial decrease in the right pleural effusion consistent with the history of a right thoracentesis. No pneumothorax is seen. There is slight improvement of the underlying right basila r airspace consolidation. Small left pleural effusion and left basilar airspace consolidation appear s unchanged. The cardiac swelling is normal in size. Laminated gallstone noted in the right upper q uadrant. Implanted right sided port again seen IMPRESSION: 1. Partial decrease in right pleural effusion when compared to the prior study consistent with the h istory of a right thoracentesis. No pneumothorax seen Small left pleural effusion and left basilar airspace consolidation relatively unchanged Report Dictated By: Katie Alvarado MD at 01/30/2018 3:54 PM Report E-Signed By: Katie Alvarado MD at 01/30/2018 3:56 PM WSN:[email or web address]
--- NOTE | 2018-01-30 16:01 | RADIOLOGY IMAGING REPORT ---
FACILITY: [facility] [place] PATIENT NAME: Carolina Hill : 1955 MR: [id number] V: [id number] EXAM DATE: ORDERING PHYSICIAN: ROXANA MONTANEZ TECHNOLOGIST: Location: [facility] [place] Patient: Carolina Hill : 1955 Visit/Account:[id number] Date of Sevice: 01/30/2018 Exam type: US GUIDANCE FOR THORA/PARA History: Right pleural effusion Comparison: December 26, 2017. Findings: Three images labeled posterior right thorax demonstrate a moderate right pleural effusion. The patie nt's skin was marked for thoracentesis to be performed by Dr. Montes. IMPRESSION: 1. As above Report Dictated By: Katie Alvarado MD at 01/30/2018 3:56 PM Report E-Signed By: Katie Alvarado MD at 01/30/2018 3:57 PM WSN:[email or web address]
== END ==
LOC: US 01:12
PROVIDERS: ATTEND Surgery
DX: J90 Pleural effusion, not elsewhere classified (principal)
CPT/HCPCS: 71046

== ENCOUNTER 2018-02-05 13:20 | Outpatient (RCR) | payer BC ==
[2017-11-28 09:09] VITALS: Ht 165.1 cm; Wt 58.8 kg
[2017-12-13 12:33] VITALS: BP 103/61
[2017-12-13] MEDS: HEPARIN FLSH (PORT) 500 UN/5ML IVP PRN (13:18)
[2017-12-13] MEDS: PALONOSETRON 0.25 MG/5 ML VIAL IVP PRN (13:18)
[2017-12-13] MEDS: DEXAMETHASONE SOD PHOS 10MG/ML IVP PRN (13:18)
[2017-12-13] MEDS: LIDOCAINE/SOD BICARB 8.4% SYR ID PRN (13:19)
[2017-12-13] MEDS: NS(*) 0.9% 500 ML BAG 500 ML IV PRN ×2 (13:19→14:02)
--- NOTE | 2017-12-13 14:27 | ONC Progress Note - NP.Halsey ---
Patient History Date of Service Dec 13, 2017 Reason For Visit/HPI Patient is seen in the clinic today with her spouse for follow-up prior to [facility]. Patient reports that she is having no difficulty with bowels. She previously had a small bowel obstruction although feels that this is resolved. Patient is no longer having shortness of breath. Patient previously oral effusion with a thoracentesis. She had a recent chest x-ray which was unremarkable. She has followed with Dr. Montes to review all results. She reports that she has mild fatigue 2 days after chemotherapy which requires resting most of the day. She then feels good and is able to carry on with activities of daily living. She denies nausea or vomiting, diarrhea or constipation. She has gained some weight which she lost previously with recent surgery and then an episode of oral mouth sores from oral chemotherapy. Problem List (1) Colon obstruction (2) Ovarian cancer (3) Small bowel obstruction (4) Pleural effusion, left Oncology History The patient is a 61-year-old woman who presented in February 2010 with vaginal spotting. On March 25, 2010 pelvic ultrasound showed markedly enlarged ovaries bilaterally with cystic areas with thick septation. CA-125 was 632. On March CT of abdomen and pelvis showed large septated cystic mass encompassing both ovaries. On March 30, 2016 a staging laparotomy with total abdominal hysterectomy and bilateral salpingo-oophorectomy with surgical staging showed bilateral 10 cm to 12 cm ovarian masses attached to the posterior uterus with 5 mm metastatic lesion on the posterior cul-de-sac. Pathology was positive for left ovarian 23.5 cm poorly differentiated endometrioid adenocarcinoma with 10 cm right ovarian tumor with poorly differentiated endometrioid adenocarcinoma with capsular rupture involving the left and right ovaries and right fallopian tube with implant on the posterior surface on the uterus and the cul-de-sac. Postoperative course was complicated by small bowel obstruction resolved with conservative therapy. CA-125 postoperatively was 46. Pelvic washings were also negative. One right pelvic lymph node was negative. Four left pelvic lymph nodes were negative. Paraaortic lymph node was also negative. Other four regional lymph nodes were also negative, so the lymph nodes were all negative. The patient's tumor was staged as stage IIB (T2b N0 M0) FIGO grade 3. The patient received six cycles of carboplatin and Paclitaxel between June 17, 2010 through October 06, 2010. The patient had hernia repair on May 28, 2015 followed by fluid accumulation and firmness in the lower abdomen and erythema of the skin of the lower abdomen, treated for possible cellulitis with multiple antibiotics without improvement. She also had persistent nausea and vomiting without colic abdominal pain. CT of the abdomen and pelvis with contrast done on October 23, 2015 revealed abnormal soft tissue thickening and inflammatory change along the hernia mesh with proximal small bowel dilatation with small bowel appearing partially tapered underlying the hernia mesh with small bowel multiple air fluid levels. There was decompression of the rest of the small bowel and colon. There were slightly enlarged mesenteric nodes. There was also some nodularity along the omentum and the mesentery, and a new mass invading into the left pelvic sidewall, 6.3 cm in size. PET-CT scan done on November 18, 2015 revealed the mass was in the left hemipelvis anterior to the iliacus muscle measuring 5 x 6 cm with SUV value of 19.3, peritoneal metastatic disease anteriorly extending to the right and left about 10 cm in the cephalocaudad extent and 1 cm in thickness, SUV value approaches 8.6. The patient received one cycle of carboplatin and Abraxane on November 17, 2015, but her CA-125 alessandro from 145 to 227 and her small bowel obstruction got worse, so the patient after that started treatment with FOLFIRI and Avastin was not given at that time for fear of the small bowel obstruction and perforation. She received her first cycle of FOLFIRI on December 08, 2015. She received her second cycle of chemotherapy on December with FOLFIRI, and she showed a CA-125 response. She received a third cycle of FOLFIRI on January 05, 2016 and Avastin added to her fourth cycle on January 19, 2016. The patient received a total of sixteen cycles of Avastin and FOLFIRI, completed in June 2016. The patient started maintenance chemotherapy with Avastin, 5-FU and leucovorin on September 26, 2016 and completed 14 cycles unfortunately her tumor markers were elevating. CEA 125 was elevated at 45. Patient then developed a small bowel obstruction and this was followed by surgical procedure with colostomy and then reconnection. Shet was on oral chemotherapy with Zejula but had significant side effects so this was discontinued. Patient started single agent Gemzar given on days 1 and 8 every 21 days on 09/27. We will continue to monitor CA 125 . 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 She plans on working at [employer] starting in December part- time. Alcohol History She denies use Smoking History: No Smoking Status: Never Smoker Exposure to Second Hand Smoke?: No Medications and Allergies Reported Medications Cyanocobalamin (Vitamin B-12) (B-12) 500 Mcg Tab.rapdis, 50 MCG PO DAILY 11/20/17 Mu-Vits-Min Th/Lycopene/Lutein (CENTRUM SILVER TABLET) 1 Each Tablet, 1 EACH PO DAILY 11/20/17 Allergies: Coded Allergies: niraparib (Verified Adverse Reaction, Intermediate, sores on mouth, ) Review of System/Physical Exam Review of Systems All Systems Reviewed/Normal: Yes, Except as Noted Respiratory: Positive for Shortness of Breath (this is improving, patient continues to use in spirometer) Hematologic: Positive for Fatigue, Positive for Weakness (this is improving) Physical Exam Vital Signs Temperature: 97.2 Pulse: 99 BP Systolic: 103 BP Diastolic: 61 Respiratory Rate: 16 O2 SAT: 94 O2 Delivery: Room Air Height (inches) 65.00 Weight lb: 121 Weight oz: 10.0 Weight Kg (Wan): 0.997162 Pain: 0 ECOG Score: 0 General: Stable, Well Developed, Well Nourished, Not In Acute Distress HEENT: No Trauma, No Conjunctivitis, No Icterus, No Mucositis Neck: Supple Lungs: Clear to Auscultation Heart: Regular Rate, Regular Rhythm, No Gallops Abdomen: No Hepatosplenomegaly, No Masses, Other (well-healed incision across the abdomen and from previous colostomy. Some scar tissue surrounding the incision sites. Sounds are active.) Extremities: No Cyanosis, No Clubbing, No Edema Lymphadenopathy: No Cervical, No Subclavicular Psychiatric: Mood appears normal, Affect appears normal Diagnostic Studies Diagnostic Studies Laboratory Laboratory Tests 12/13/17 12:25 Laboratory Tests 12/13/17 12:25: White Blood Count 4.4, Hemoglobin 10.5, Hematocrit 32.3, Platelet Count 135, Neutrophils (%) (Auto) 48.6, Lymphocytes (%) (Auto) 35.4, Neutrophils # (Auto) 2.1, Lymphocytes # (Auto) 1.6, Sodium Level 140, Potassium Level 3.7, Chloride Level 104, Carbon Dioxide Level 25, Blood Urea Nitrogen 10, Creatinine 0.50, Glomerular Filtration Rate Calc > 60.0, Random Glucose 116, Calcium Level 8.7, Total Bilirubin 0.3, Aspartate Amino Transf (AST/SGOT) 22, Alanine Aminotransferase (ALT/SGPT) 37, Alkaline Phosphatase 149, Total Protein 6.6, Albumin 3.3 Assessment and Plan Assessment & Plan 1. Recurrent ovarian carcinoma. This is her second recurrence. She had a recurrence with partial small bowel obstruction October 2015 and patient received one cycle of carboplatin and Abraxane without improvement with rising of her CA-125 from 144 to 227 so the patient after that received treatment with FOLFIRI started December 08, 2015 and Avastin was added to her treatment after her bowel obstruction resolved. She received 16 cycles of FOLFIRI. CA-125 dropped from 227 to 23. She had a PET/CT scan on September 08, 2016 which was negative. Patient started maintenance chemotherapy with Avastin, 5-FU and leucovorin October 26, 2016, and she finished 14 cycles. She was then noted to have a palpable mass asked below the umbilicus to the right side. CT scan showed a new 2.3 x 2.4 cm soft tissue nodularity in the posterior right pelvis. Patient had a PET CT scan and discussed with Dr. Bruner patient to start treatment with Avastin and Alimta. Patient was given vitamin B12, 1000 mcg one -week prior as a preparation for her treatment with Alimta together with folic acid 1 mg daily and a prescription of Decadron 4 mg twice daily for three days to start the day before chemotherapy. Patient then developed diarrhea up to 15 loose stools a day and ongoing vomiting and nausea. Patient was treated surgically for small bowel obstruction and reversal of colostomy. Patient started treatment with Zejula after release from the hospital however did not tolerate it and tumor marker increased. She was then started on Gemzar given on day 1 and 8 every 21 days on 09/27/2017. Aloxi was added as an anti-emetic premed. CA 125 has decreased to 110 on 10-18-17, baseline was 149. Most recent CA 125 was 104 on 11/20/2017 prior to that it was 110 on 10/18/2017. It appears patient is responding to current treatment and has good toleration She will complete weekly CBC and CMP. 2. Chemotherapy-induced thrombocytopenia. We will continue to monitor, labs remain stable 3. Dehydration and malnutrition. Patient will be hydrated with 500 mL with each treatment. Patient does well with this plan of care 4. Anemia secondary to chemotherapy. We'll continue to monitor and will transfuse if hemoglobin is below 8. 5. Vitamin B12 deficiency. Patient will receive 1000 g subcutaneous vitamin B12 injection. PLAN 1. Gemzar today. 2 Patient will follow with provider with each cycle. CA 125 will be drawn every other cycle. 3. Patient will be hydrated with 500 mls with each treatment. 4. Patient to contact us with questions or concerns I personally spent a total of 20 minutes [id number] with patient and spouse for plan of care Copies to: ROXANA MONTANEZ MD, NANCY J PLSQL DEVELOPER-BC, ONC Dec 13, 2017 14:27
[2017-12-13 15:16] VITALS: BP 119/55
[2017-12-28 12:43] VITALS: BP 105/55
[2017-12-28] MEDS: DEXAMETHASONE SOD PHOS 10MG/ML IVP PRN (13:07)
[2017-12-28] MEDS: NS(*) 0.9% 500 ML BAG 500 ML IV PRN (13:08)
[2017-12-28] MEDS: LIDOCAINE/SOD BICARB 8.4% SYR ID PRN (13:08)
[2017-12-28] MEDS: PALONOSETRON 0.25 MG/5 ML VIAL IVP PRN (13:08)
[2017-12-28] MEDS: HEPARIN FLSH (PORT) 500 UN/5ML IVP PRN (15:49)
[2018-01-03 12:16] VITALS: BP 103/60
[2018-01-03] MEDS: NS(*) 0.9% 500 ML BAG 500 ML IV PRN (12:21)
[2018-01-03] MEDS: LIDOCAINE/SOD BICARB 8.4% SYR ID PRN (12:21)
[2018-01-03] MEDS: HEPARIN FLSH (PORT) 500 UN/5ML IVP PRN (12:22)
--- NOTE | 2018-01-03 13:00 | ONC Progress Note - NP.Halsey ---
Patient History Date of Service Jan 03, 2018 Reason For Visit/HPI Patient is seen in the clinic today for follow-up prior to Gemzar. She is scheduled to receive cycle 5 day 8. Patient reports that with her infusion last week she had mild nausea which lasted several days and was extremely tired 2 days after treatment. She also shares that she was having increased shortness of breath with difficulty breathing with any ambulation. She had a chest x-ray done and was noted to have right pleural effusion. She followed with Dr. Montes and had 1300 mL removed from the right lung. Patient reports that her breathing was improved. She continues to have crackles on both sides and can feel the crackles on the left side. Patient has increased fatigue and difficulty with activity. She restarted back at work and finds that after 2-3 hours at work she is exhausted when she comes home. She has decreased appetite and cannot find any foods that taste good. She is trying to do high protein shakes. She reports not having a bowel movement 2 days ago and so she took a laxative and had diarrhea yesterday. Today she has nausea and has emesis while in the clinic after having premeds and before chemotherapy. Recent tumor markers have not been drawn due to patient's request to not do them as frequent as previously drawn. She denies any oral mouth sores. Problem List (1) Ovarian cancer (2) Colon obstruction (3) Small bowel obstruction Oncology History The patient is a 61-year-old woman who presented in February 2010 with vaginal spotting. On March 25, 2010 pelvic ultrasound showed markedly enlarged ovaries bilaterally with cystic areas with thick septation. CA-125 was 632. On March CT of abdomen and pelvis showed large septated cystic mass encompassing both ovaries. On March 30, 2016 a staging laparotomy with total abdominal hysterectomy and bilateral salpingo-oophorectomy with surgical staging showed bilateral 10 cm to 12 cm ovarian masses attached to the posterior uterus with 5 mm metastatic lesion on the posterior cul-de-sac. Pathology was positive for left ovarian 23.5 cm poorly differentiated endometrioid adenocarcinoma with 10 cm right ovarian tumor with poorly differentiated endometrioid adenocarcinoma with capsular rupture involving the left and right ovaries and right fallopian tube with implant on the posterior surface on the uterus and the cul-de-sac. Postoperative course was complicated by small bowel obstruction resolved with conservative therapy. CA-125 postoperatively was 46. Pelvic washings were also negative. One right pelvic lymph node was negative. Four left pelvic lymph nodes were negative. Paraaortic lymph node was also negative. Other four regional lymph nodes were also negative, so the lymph nodes were all negative. The patient's tumor was staged as stage IIB (T2b N0 M0) FIGO grade 3. The patient received six cycles of carboplatin and Paclitaxel between June 17, 2010 through October 06, 2010. The patient had hernia repair on May 28, 2015 followed by fluid accumulation and firmness in the lower abdomen and erythema of the skin of the lower abdomen, treated for possible cellulitis with multiple antibiotics without improvement. She also had persistent nausea and vomiting without colic abdominal pain. CT of the abdomen and pelvis with contrast done on October 23, 2015 revealed abnormal soft tissue thickening and inflammatory change along the hernia mesh with proximal small bowel dilatation with small bowel appearing partially tapered underlying the hernia mesh with small bowel multiple air fluid levels. There was decompression of the rest of the small bowel and colon. There were slightly enlarged mesenteric nodes. There was also some nodularity along the omentum and the mesentery, and a new mass invading into the left pelvic sidewall, 6.3 cm in size. PET-CT scan done on November 18, 2015 revealed the mass was in the left hemipelvis anterior to the iliacus muscle measuring 5 x 6 cm with SUV value of 19.3, peritoneal metastatic disease anteriorly extending to the right and left about 10 cm in the cephalocaudad extent and 1 cm in thickness, SUV value approaches 8.6. The patient received one cycle of carboplatin and Abraxane on November 17, 2015, but her CA-125 alessandro from 145 to 227 and her small bowel obstruction got worse, so the patient after that started treatment with FOLFIRI and Avastin was not given at that time for fear of the small bowel obstruction and perforation. She received her first cycle of FOLFIRI on December 08, 2015. She received her second cycle of chemotherapy on December with FOLFIRI, and she showed a CA-125 response. She received a third cycle of FOLFIRI on January 05, 2016 and Avastin added to her fourth cycle on January 19, 2016. The patient received a total of sixteen cycles of Avastin and FOLFIRI, completed in June 2016. The patient started maintenance chemotherapy with Avastin, 5-FU and leucovorin on September 26, 2016 and completed 14 cycles unfortunately her tumor markers were elevating. CEA 125 was elevated at 45. Patient then developed a small bowel obstruction and this was followed by surgical procedure with colostomy and then reconnection. She was on oral chemotherapy with Zejula but had significant side effects so this was discontinued. Patient started single agent Gemzar given on days 1 and 8 every 21 days on 09/27. We will continue to monitor CA 125 . 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 She plans on working at [employer] starting in December part- time. Alcohol History She denies use Smoking History: No Smoking Status: Never Smoker Exposure to Second Hand Smoke?: No Medications and Allergies Reported Medications Cyanocobalamin (Vitamin B-12) (B-12) 500 Mcg Tab.rapdis, 50 MCG PO DAILY 11/20/17 Mu-Vits-Min Th/Lycopene/Lutein (CENTRUM SILVER TABLET) 1 Each Tablet, 1 EACH PO DAILY 11/20/17 Allergies: Coded Allergies: niraparib (Verified Adverse Reaction, Intermediate, sores on mouth, ) Review of System/Physical Exam Review of Systems All Systems Reviewed/Normal: Yes, Except as Noted Constitutional: Denies Appetite/Weight Change Respiratory: Positive for Shortness of Breath (see above) Gastrointestinal: Nausea, Vomitting, Diarrhea, Constipation Hematologic: Positive for Fatigue, Positive for Weakness Psychiatric: Other (patient denies depression but generally is not herself today) Skin: Denies Skin Rash Physical Exam Vital Signs Temperature: 97.6 Pulse: 113 BP Systolic: 103 BP Diastolic: 60 Respiratory Rate: 16 O2 SAT: 94 O2 Delivery: Room Air Height (inches) 65.00 Weight lb: 121 Weight oz: 10.0 Weight Kg (Wan): 0.894590 Pain: 0 ECOG Score: 2 (Patient is weak and fatigued, she is pale and thin and appears frail) General: Stable, Not Well Developed, Not Well Nourished, Not In Acute Distress Neck: Supple Lungs: Clear to Auscultation (bilateral crackles noted and diminished breath sounds in all lung jordan) Heart: Regular Rate, Regular Rhythm, No Gallops, No Murmurs Abdomen: Soft and Nontender, No Hepatosplenomegaly, No Masses, Other (bowel sounds are active) Extremities: No Cyanosis, No Clubbing, No Edema Lymphadenopathy: No Cervical Psychiatric: Mood appears normal (patient appears to be worried and affect is flat.) Skin: No Skin Rashes, No Bruising, No Purpura Diagnostic Studies Diagnostic Studies Laboratory Laboratory Tests 01/03/18 12:20 Laboratory Tests 01/03/18 12:20: White Blood Count 3.6, Hemoglobin 10.0, Hematocrit 30.9, Platelet Count 221, Neutrophils (%) (Auto) 49.1, Lymphocytes (%) (Auto) 31.0, Neutrophils # (Auto) 1.8, Lymphocytes # (Auto) 1.1, Sodium Level 139, Potassium Level 3.6, Chloride Level 106, Carbon Dioxide Level 25, Blood Urea Nitrogen 13, Creatinine 0.50, Glomerular Filtration Rate Calc > 60.0, Random Glucose 141, Calcium Level 8.2, Total Bilirubin 0.3, Aspartate Amino Transf (AST/SGOT) 28, Alanine Aminotransferase (ALT/SGPT) 46, Alkaline Phosphatase 229, Total Protein 6.0, Albumin 3.0 Radiology Chest x-ray and plain film of the abdomen to be completed today Assessment and Plan Assessment & Plan 1. Recurrent ovarian carcinoma. This is her second recurrence. She had a recurrence with partial small bowel obstruction October 2015 and patient received one cycle of carboplatin and Abraxane without improvement with rising of her CA-125 from 144 to 227 so the patient after that received treatment with FOLFIRI started December 08, 2015 and Avastin was added to her treatment after her bowel obstruction resolved. She received 16 cycles of FOLFIRI. CA-125 dropped from 227 to 23. She had a PET/CT scan on September 08, 2016 which was negative. Patient started maintenance chemotherapy with Avastin, 5-FU and leucovorin October 26, 2016, and she finished 14 cycles. She was then noted to have a palpable mass asked below the umbilicus to the right side. CT scan showed a new 2.3 x 2.4 cm soft tissue nodularity in the posterior right pelvis. Patient had a PET CT scan and discussed with Dr. Bruner patient to start treatment with Avastin and Alimta. Patient was given vitamin B12, 1000 mcg one -week prior as a preparation for her treatment with Alimta together with folic acid 1 mg daily and a prescription of Decadron 4 mg twice daily for three days to start the day before chemotherapy. Patient then developed diarrhea up to 15 loose stools a day and ongoing vomiting and nausea. Patient was treated surgically for small bowel obstruction and reversal of colostomy. Patient started treatment with Zejula after release from the hospital however did not tolerate it and tumor marker increased. She was then started on Gemzar given on day 1 and 8 every 21 days on 09/27/2017. Aloxi was added as an anti-emetic premed. CA 125 has decreased to 110 on 10-18-17, baseline was 149. Most recent CA 125 was 104 on 11/20/2017 prior to that it was 110 on 10/18/2017. It appears patient is responding to current treatment and has good toleration with nausea and increased fatigue several days after. Patient has requested to decrease the frequency of the CA 125. I will have it drawn today for evaluation and assessment prior to cycle 6. She will complete weekly CBC and CMP treatment. Patient does not complete a CBC on her week without treatment.. 2. Chemotherapy-induced thrombocytopenia. We will continue to monitor, labs remain stable 3. Dehydration and malnutrition. Patient will be hydrated with 500 mL with each treatment. Patient does well with this plan of care 4. Anemia secondary to chemotherapy. We'll continue to monitor and will transfuse if hemoglobin is below 8. 5. Vitamin B12 deficiency. Patient receives 1000 g subcutaneous vitamin B12 injection approximately every 12 weeks 6. Increased shortness of breath. Patient is status post thoracentesis last week 1300 mils removed. Patient has bilateral crackles. She is not feeling well and has shortness of breath with any activity. At rest patient saturations are within normal limits. I will do a chest x-ray for further evaluation. 7. Nausea and vomiting noted today after premedications and prior to chemotherapy. Patient reports no bowel movement 2 days ago and took a laxative yesterday and has had diarrhea. Given the history that patient has had multiple small bowel obstructions I will do a plain film of the abdomen. 8. Increased fatigue. This could be related to shortness of breath, small bowel obstruction, or increasing disease. See above for management PLAN 1. Gemzar cycle 5 day 8 completed today. 2 Patient will follow with provider with each cycle. CA 125 will be drawn today for evaluation prior to cycle 6. 3. Patient will be hydrated with 500 mls with each treatment. 4. Patient to contact us with questions or concerns 5. Chest x-ray PA and lateral and abdominal x-ray completed today. Results are pending. I personally spent a total of 30 minutes [id number] with patient and spouse for plan of care HUGO MORROW P[employer]CE WORK CHECKER-BC, ONC Jan 03, 2018 13:00
[2018-01-03] MEDS: DEXAMETHASONE SOD PHOS 10MG/ML IVP PRN (13:29)
[2018-01-03] MEDS: PALONOSETRON 0.25 MG/5 ML VIAL IVP PRN (13:30)
[2018-01-03 14:48] VITALS: BP 129/64
--- NOTE | 2018-01-03 15:38 | RADIOLOGY IMAGING REPORT ---
FACILITY: [facility] - [place] PATIENT NAME: Carolina Hill : 1955 MR: [id number] V: [id number] EXAM DATE: ORDERING PHYSICIAN: HUGO MORROW TECHNOLOGIST: Location: [facility] Patient: Carolina Hill : 1955 Visit/Account:[id number] Date of Sevice: 01/03/2018 CHEST PA AND LAT Indication: History of small bowel obstruction, pleural effusion. Comparison: Chest x-ray 12/26/2017 Findings: Lungs: There is a right-sided subclavian portacatheter with its tip in the midsuperior vena cava in g ood position. There is blunting of the right costophrenic angle, there is increased from the prior s tudy. Blunting of the left costophrenic angle is unchanged. Remaining lung parenchyma is clear. Mediastinum/pulmonary vasculature: Heart size and pulmonary vasculature are normal. Bones/soft tissues: Normal. IMPRESSION: 1. Bilateral pleural effusions, right is slightly increased compared to 12/26/2017. Left side is unch anged. 2. Remaining lung parenchyma is clear. 3. Large gallstone, unchanged. Report Dictated By: John Flores at 01/03/2018 3:30 PM Report E-Signed By: John Flores at 01/03/2018 3:33 PM WSN:[email or web address]
--- NOTE | 2018-01-03 15:46 | RADIOLOGY IMAGING REPORT ---
[place] [facility] [place]IENT NAME: Carolina Hill : 1955 MR: [id number] V: [id number] EXAM DATE: ORDERING PHYSICIAN: HUGO MORROW TECHNOLOGIST: Location: [facility] - [place] Patient: Carolina Hill : 1955 Visit/Account:[id number] Date of Sevice: 01/03/2018 KUB SINGLE VIEW ABDOMEN Indication: History of small bowel obstruction Comparison: Abdomen radiograph 02/27/2018 Findings: Large gallstone is seen, unchanged. There are surgical changes in the mid abdomen. Small bowel is normal in caliber. Moderate amount of stool is seen. IMPRESSION: 1. No evidence of small bowel obstruction. 2. Postoperative changes in the abdomen, with surgical sutures in the bowel. 3. Gallstone unchanged. This was called by Dr. Flores to HUGO MORROW on 01/03/2018 3:33 PM Report Dictated By: John Flores at 01/03/2018 3:33 PM Report E-Signed By: John Flores at 01/03/2018 3:40 PM WSN:[email or web address]
[2018-01-18 12:22] VITALS: BP 114/48
[2018-01-18] MEDS: LIDOCAINE/SOD BICARB 8.4% SYR ID PRN (13:00)
[2018-01-18] MEDS: NS(*) 0.9% 500 ML BAG 500 ML IV PRN (13:00)
[2018-01-18] MEDS: PALONOSETRON 0.25 MG/5 ML VIAL IVP PRN (13:24)
[2018-01-18] MEDS: DEXAMETHASONE SOD PHOS 10MG/ML IVP PRN (13:24)
[2018-01-18] MEDS: HEPARIN FLSH (PORT) 500 UN/5ML IVP PRN (15:00)
[2018-01-18 15:13] VITALS: BP 98/48
[2018-01-21 14:26] VITALS: BP 129/66
--- NOTE | 2018-01-24 06:21 | ONCOLOGY FOLLOW UP NOTE ---
EVENT DATE: January 21, 2018 CHIEF COMPLAINT/REASON FOR VISIT Ms. Hill is a 62-year-old female with stage IV ovarian cancer on her fifth chemotherapy regimen, here for followup, now failing Gemzar monotherapy. HISTORY OF PRESENT ILLNESS Ms. Hill returns. Please see her oncology history outlined below. Recently she has had a very difficult time and has not had a bowel movmeent since last Sunday. She has more nausea, dry mouth, and other symptoms. I am concerned about a partial or complete bowel obstruction. She has more abdominal bloating. Of note, her CA-125 is rising despite cycle 6 of Gemzar starting this month. She is having more profound fatigue and feels "wiped out" for three or four days after each weekly dose of Gemzar. At this time, I think the risks and lack of response tell me that we need to stop the Gemzar and consider other therapy. We discussed many options today, including targeted therapy, immunotherapy, and hormonal therapy, as well as alternative chemotherapy agents. After the visit and exam, I sent her to the ER for a CT scan to rule out obstruction or symptomatic effusion. Based on her exam, I do not believe that the pleural effusions have changed significantly since last Sunday's x-ray. ONCOLOGIC HISTORY The patient was first developing vaginal spotting in February of 2010. Her CA-125 was 632. She initially had a stage 2B FIGO grade 3 ovarian cancer. She received chemotherapy and did well until 2014 in October where this showed a proximal bowel dilation and obstruction. She had a new mass invading the left pelvic sidewall at 6.3 cm in size. Metastatic disease was confirmed. She received one cycle of carboplatin and Abraxane, but her CA-125 alessandro and her bowel obstruction worsened. She was then switched to Folfiri without Avastin and did well for quite some time. She completed 16 cycles of this in June 2016 and was maintained on maintenance Avastin and 5-FU and Leucovorin. Her tumor marker eventually elevated and the CA-125 went up to 45. They attempted to use Xeloda, but this was not pursued due to significant side effects. She then began single agent Gemzar on September 27, 2017 with initial response but then is now progressing after five cycles. Of note, the patient had a bowel obstruction requiring ostomy and subsequent revision. She had an unusual presentation without profound nausea. They do discuss how they were upset with what they felt to be a delayed diagnosis with this, although I do agree it did seem to be an atypical presentation. FAMILY HISTORY Mother with diabetes. SOCIAL HISTORY Patient is and is presenting with her today. 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 Never smoked. No alcohol use. REVIEW OF SYSTEMS CONSTITUTIONAL: No fevers, chills. Positive weight loss. No signs of infection. HEENT: No headaches, visual changes. CARDIOVASCULAR: No chest pain, dyspnea on exertion, edema. RESPIRATORY: Positive shortness of breath. Positive low oxygen level with known malignant pleural effusions. GI: Positive constipation currently. She has not had a bowel movement in several days. Hypoactive bowel sounds on exam. Positive nausea and vomiting. Poor appetite currently. : No dysuria or hematuria currently. SKIN: No concerning rashes or lesions. ENDOCRINE: Positive cold intolerance. We will check a thyroid level. LYMPHATIC: No appreciable lumps or bumps. The remainder of the review of systems is otherwise negative. PHYSICAL EXAMINATION VITAL SIGNS: Blood pressure 129/66, pulse 129, respiratory rate 16, temperature 97, oxygen 90% on room air, weight 58.5 kg. Pain 0/10. Fatigue 6/ 10. GENERAL: Stable condition, nontoxic. ECOG Performance Status of 2. HEENT: Normal. CARDIOVASCULAR: Regular rate and rhythm. LUNGS: Clear to auscultation bilaterally, although diminished at the bases equally. I do not believe she has a profoundly large pleural effusion based on this exam. ABDOMEN: Distended. I appreciate what may be a mass in the left lower quadrant. Bowel sounds hypoactive but normal pitch. EXTREMITIES: No clubbing, cyanosis. Positive edema in the feet. The remainder of the physical exam is otherwise unremarkable. IMPRESSION AND PLAN Ms. Hill is a pleasant 62-year-old female with the followin. Metastatic ovarian cancer. Unfortunately, the patient has been through five chemotherapy regimens, and I worry about her ability to respond to further chemotherapy. We could use single agent docetaxel or single agent topotecan. I worry about her ability to respond or tolerate this. She does not want therapy that would cause her hair to fall out, nor does she want any p.o. therapy. We discussed targeted therapies and consideration of foundation medicine testing. We also discussed immune therapy. Nivolumab would be my first choice. I answered all of her many questions today, and we discussed the natural history of the disease in detail. I did express to them that I am worried that this is becoming more aggressive and we may not be able to get it under control. They would like to pursue therapy after discussion. 2. History of small bowel obstruction, hypoactive bowel sounds, with concern for progression. I am worried that this is what we are dealing with. I am sending her to the ER for scans. If there is need for admission, that is the most appropriate thing. Otherwise, we can try to go home and continue supportive care and getting away from chemotherapy. 3. Will work for compassionate use and insurance approval of nivolumab. We discussed the side effects and expected outcome with this in detail. She understands that this has been an early phase study but is not yet FDA approved. I answered all of her questions. Billing: Level 5 Total time: 85 minutes Counseling time: 60 minutes MTDD
[2018-01-29 12:42] VITALS: BP 123/50
[2018-01-29 12:56] LABS: PLATELET COUNT, AUTOMATED 140 K/uL (150-450)
[~2018-02-05] VITALS: Ht 165.1 cm; Wt 58.8 kg
[~2018-02-05 13:20] MED LIST changes: +ALTEPLASE RECOMB 2 MG VIAL IVP PRN; +CYANOCOBALAMIN 1000MCG/ML VIAL IM ONLY ONE; +DEXTROSE 5%(*) 100 ML BAG 100 ML IVPB PRN; +GEMCITABINE IVPB ONE; +NS(*) 0.9% 100 ML BAG 100 ML IVPB PRN; +WATER STERILE 10 ML VIAL IVP PRN; +[UNRECOGNIZED DRUG - OTHER] IVPB ONE
[2018-02-05 13:36] VITALS: BP 110/47
[2018-02-05] MEDS ORDERED: LR(*) 1000 ML BAG 1,000 ML IV ONE (13:45)
[2018-02-05] MEDS: LIDOCAINE/SOD BICARB 8.4% SYR ID PRN (13:47)
[2018-02-05] MEDS: HEPARIN FLSH (PORT) 500 UN/5ML IVP PRN (13:47)
[2018-02-05 13:59] LABS: PLATELET COUNT, AUTOMATED 210 K/uL (150-450)
== END 2018-02-13 ==
LOC: SPU 13:20
PROVIDERS: ATTEND Nurse Practitioner Family
DX: Z51.11 Encounter for antineoplastic chemotherapy (principal); C56.2 Malignant neoplasm of left ovary; D69.59 Other secondary thrombocytopenia; Z79.899 Other long term (current) drug therapy; E86.0 Dehydration; R53.83 Other fatigue; R53.1 Weakness; E53.8 Deficiency of other specified B group vitamins; D64.81 Anemia due to antineoplastic chemotherapy; J90 Pleural effusion, not elsewhere classified; K80.80 Other cholelithiasis without obstruction
CPT/HCPCS: 36415; 71046; 74018; 84439; 84443; 85025; 85027; 86304; 96361; 96372; 96375; 96413; 99212; J1100; J1642; J2469; J3420; J7040; J7050; J7120; J9201; 82040; 82247; 82310; 82374; 82435; 82565; 82947; 84075; 84132; 84155; 84295; 84450; 84460; 84520